=== PATIENT | female | born 1970 | race Caucasian/White ===

== ENCOUNTER 2022-10-25 15:12 | Outpatient (CLI) | payer OTHER, SELFPAY ==
[2022-10-25 17:31] LABS: Albumin* 4.1 g/dL (3.3-5.0); Chloride* 97 mmol/L (96-114); Potassium* 4.6 mmol/L (3.6-5.1); Sodium* 132 mmol/L (135-149)
[2022-10-25 17:33] LABS: Bilirubin Total* 0.6 mg/dL (0.1-1.5); Carbon Dioxide* 27 mmol/L (20-32); Cholesterol* 259 mg/dL (90-199); Creatinine* 0.4 mg/dL (0.5-1.5); Estimated Glomerular Filt Rate 121 ml/min; Total Protein* 7.4 g/dL (6.0-8.3)
[2022-10-25 17:34] LABS: Alanine Aminotransferase* 22 U/L (4-35); Alkaline Phosphatase* 120 U/L (40-150); Aspartate Amino Transferase* 20 U/L (12-35); Blood Urea Nitrogen* 12 mg/dL (5-24); Calcium* 9.5 mg/dL (8.4-10.6); HDL Cholesterol* 39 mg/dL (>=50); LDL Cholesterol Calculated 151 mg/dL (<100); Triglycerides* 346 mg/dL (40-149)
[2022-10-25 17:37] LABS: Glucose* 434 mg/dL (60-115)
[2022-10-25 20:14] LABS: Microalbumin Creatinine Ratio 50 mg/g (0-30); Microalbumin Urine 1 mg/dL
== END 2022-10-25 15:13 | disposition home or self-care (01) ==
LOC: NFLDREF 15:14
PROVIDERS: PCP Internal Medicine; Visit Provider Internal Medicine
DX: E11.9 Type 2 diabetes mellitus without complications (principal); E78.5 Hyperlipidemia, unspecified
CPT/HCPCS: 80053; 80061; 82043; 82570

== ENCOUNTER 2023-05-10 18:54 | Emergency (ER) | payer OTHER, SELFPAY ==
[2023-05-10 19:04] VITALS: BP 175/116; PULSE 91; RESP 16; TEMP 36.3; O2SAT 98; BMI 27.5
--- NOTE | 2023-05-10 19:20 | ED.GENADULT ---
HPI - General Adult General Chief complaint: Urogenital Problems, Female Stated complaint: Suspected bladder infection Time Seen by Provider: 05/10/23 19:12 History of Present Illness HPI narrative: Pt aox4, ABCs intact. Pt c/o buring and frequency with urination. Patient took Azo and ibuprofen around 1600 today, But it did not provide her with any relief. 52-year-old woman presenting to the emergency department with concern of 2 days now of frequency and dysuria. Some mild abdominal discomfort. Not any fever. No hematuria noted. Has been taking some azo in discomfort is lessened at the moment. No back pain. No nausea. She acknowledges that her sugars have been little bit high lately; notes that she needs to get back into the doctor to get a refill of her medication which she notes is metformin. She is uncertain on dosing though review of records would seem to show that last dosing was 1000 mg b.i.d.. Related Data Previous Rx's Medication Instructions Recorded metformin 1,000 mg tablet 1,000 mg PO BIDWMEAL #180 tabs 10/25/22 lorazepam 0.5 mg tablet 0.5 mg PO QDAY PRN anxiety #4 tabs 12/27/22 metformin 1,000 mg tablet 1,000 mg PO BID #60 tabs 05/10/23 Allergies Allergy/AdvReac Type Severity Reaction Status Date / Time Sulfa Antibiotics Allergy Severe Rash Uncoded 10/21/22 08:03 Review of Systems Status of ROS: Reports: 6 or more systems reviewed and unremarkable except as noted in History and below [facility] Medical History History of cellulitis ?Z87.2 - Personal history of diseases of the skin and subcutaneous tissue (ICD-10) Surgical History History of bilateral mastectomy ?Z90.13 - Acquired absence of bilateral breasts and nipples (ICD-10) History of bilateral oophorectomy (07/26/13) ?Z90.722 - Acquired absence of ovaries, bilateral (ICD-10) Social History Smoking Status: Never smoker Exam Narrative: Exam Narrative: Pleasant. Carefully casually groomed with careful placement of makeup. Skin is warm and dry rather tanned. Breathing easily. Lungs appear to be clear. Heart in a mildly elevated rate in a regular rhythm. Abdomen is soft and mildly uncomfortable to palpation in the suprapubic area. No flank pain. Const: Vital Signs, click to edit/add: Vital Signs - 24 hr 05/10/23 19:04 Temperature 97.4 F L Pulse Rate [Pulse Oximeter] 91 Respiratory Rate 16 Blood Pressure [Le ft Upper Arm] 175/116 H Pulse Oximetry 98 Oxygen Delivery Me thod Room Air Documenting provider has reviewed patient's vital signs: yes Course Vital Signs Vital signs: Initial Vital Signs Temperature 97.4 F L 05/10/23 19:04 Temperature Source Temporal Artery Scan 05/10/23 19:04 Pulse Rate 91 05/10/23 19:04 Respiratory Rate 16 05/10/23 19:04 Blood Pressure 175/116 H 05/10/23 19:04 Blood Pressure Mean 135 H 05/10/23 19:04 Pulse Oximetry 98 05/10/23 19:04 Oxygen Delivery Method Room Air 05/10/23 19:04 Vital Signs Temperature 97.4 F L 05/10/23 19:04 Pulse Rate 91 05/10/23 19:04 Respiratory Rate 16 05/10/23 19:04 Blood Pressure 175/116 H 05/10/23 19:04 Pulse Oximetry 98 05/10/23 19:04 Oxygen Delivery Method Room Air 05/10/23 19:04 Temperature 97.4 F L 05/10/23 19:04 Pulse Rate 91 05/10/23 19:04 Respiratory Rate 16 05/10/23 19:04 Blood Pressure 175/116 H 05/10/23 19:04 Pulse Oximetry 98 05/10/23 19:04 Oxygen Delivery Method Room Air 05/10/23 19:04 Medical Decision Making MDM Narrative Medical decision making narrative: Will look for old urine cultures. Urinalysis pending. Absent other risk factors this urinalysis I think is enough of an evaluation at this point. I would anticipate also refilling metformin for 1 month and recommending follow-up soon with primary care provider. On review of records it looks like intention by primary was to see her about 4 months ago. Pansensitive E coli noted in December of 2021 in urine culture Urine today is grossly positive and includes nitrites otherwise affected somewhat I think by phenazopyridine as well. Lab Data Lab results reviewed: Yes I reviewed the patient's lab results Labs: Lab Results 05/10/23 05/10/23 05/10/23 Range/Units 19:20 19:20 19:20 Urine Color [place] A (Yellow) Urine Appearance Cloudy A (Clear) Urine pH 5.0 (5.0-8.5) Ur Specific [place] 1.015 (1.000-1.030) Urine Protein 3+ A (Negative) Urine Glucose (UA) 3+ A (Negative) Urine Ketones 3+ A (Negative) Urine Blood 1+ A (Negative) Urine Nitrite Positive A (Negative) Urine Bilirubin Negative (Negative) Urine Urobilinogen 2.0 A (0.2-1.0) Ur Leukocyte Esterase 3+ A (Negative) Urine RBC 2-5 A Cancelled (0-2) Urine WBC >100 A Cancelled (0-5) Urine WBC Clumps Cancelled Ur Squamous Epith Cells Few (None-Few) [place] Biurate Crystals Calcium Carbonate Cryst Calcium Phosphate Cryst Calcium Oxalate Crystal Cystine Crystals Uric Acid Crystals Triple Phos Crystals Sulfur Crystals Cholesterol Crystals Tyrosine Crystals Hippuric Acid Crystals Amorphous Sediment Other Sediment Urine Bacteria (None) Fatty Casts Hyaline Casts Fine Granular Casts Coarse Granular Casts Waxy Casts RBC Casts WBC Casts Other Casts Urine Starch Urine Mucus Urine Trichomonas Urine Yeast 05/10/23 05/10/23 Range/Units 19:20 19:20 Urine Color (Yellow) Urine Appearance (Clear) Urine pH (5.0-8.5) Ur Specific [place] (1.000-1.030) Urine Protein (Negative) Urine Glucose (UA) (Negative) Urine Ketones (Negative) Urine Blood (Negative) Urine Nitrite (Negative) Urine Bilirubin (Negative) Urine Urobilinogen (0.2-1.0) Ur Leukocyte Esterase (Negative) Urine RBC (0-2) Urine WBC (0-5) Urine WBC Clumps Ur Squamous Epith Cells Cancelled (None-Few) [place] Biurate Crystals Cancelled Calcium Carbonate Cryst Cancelled Calcium Phosphate Cryst Cancelled Calcium Oxalate Crystal Cancelled Cystine Crystals Cancelled Uric Acid Crystals Cancelled Triple Phos Crystals Cancelled Sulfur Crystals Cancelled Cholesterol Crystals Cancelled Tyrosine Crystals Cancelled Hippuric Acid Crystals Cancelled Amorphous Sediment Cancelled Other Sediment Cancelled Urine Bacteria Few A Cancelled (None) Fatty Casts Cancelled Hyaline Casts Cancelled Fine Granular Casts Cancelled Coarse Granular Casts Cancelled Waxy Casts Cancelled RBC Casts Cancelled WBC Casts Cancelled Other Casts Cancelled Urine Starch Cancelled Urine Mucus Cancelled Urine Trichomonas Cancelled Urine Yeast Cancelled Discharge Plan Discharge Clinical Impression: Cystitis Patient Disposition: Home, Self-Care Condition: Stable Additional Instructions: Focus on hydration with unsugared/unsweetened liquid, ideally water at the moment. Urine culture is pending here. Do finish your course of cephalexin though I think that 6 days will probably be enough. Sending metformin to your pharmacy. Please check in with Dr. Rivas to see when she would like to see you again; whether that is after 3 months of careful work on your blood sugars or just as soon as possible Cephalexin and phenazopyridine from [facility]. Prescriptions: New metformin 1,000 mg tablet 1,000 mg PO BID Qty: 60 2RF No Action metformin 1,000 mg tablet 1,000 mg PO BIDWMEAL Qty: 180 0RF lorazepam 0.5 mg tablet 0.5 mg PO QDAY PRN (Reason: anxiety) Qty: 4 0RF Follow Up/Referrals: Zeynep Rivas MD [Primary Care Provider] - Stand Alone Forms: [employer] Info Instructions
[2023-05-10 19:54] LABS: Bacteria Urine Few; Squamous Epithelial Cell Urine Few (None-Few); WBC Urine >100 (0-5)
[2023-05-10 19:56] LABS: Appearance Urine Cloudy (Clear); Color Urine Orange (Yellow)
[2023-05-10 19:57] LABS: Bilirubin Urine Negative (Negative); Blood Urine 1+ (Negative); Glucose Urine 3+ (Negative); Ketones Urine 3+ (Negative); Leukocyte Esterase Urine 3+ (Negative); Nitrite Urine Positive (Negative); Protein Urine 3+ (Negative); Specific Gravity Urine 1.015 (1.000-1.030)
== END 2023-05-10 20:41 | disposition home or self-care (01) ==
PROVIDERS: Emergency Provider Family Medicine; PCP Internal Medicine
DX: N30.90 Cystitis, unspecified without hematuria (principal)
CPT/HCPCS: 81001; 81003; 81015; 87086; 87186; 99283; 99284

== ENCOUNTER 2023-07-01 13:21 | Emergency (ER) | payer OTHER, SELFPAY ==
[2023-07-01 13:28] VITALS: BP 189/106; PULSE 91; RESP 18; TEMP 36.7; O2SAT 95
--- NOTE | 2023-07-01 13:28 | CRLHL7_ITS ---
For Patients: As a result of the Cures Act, medical imaging exams and procedure reports are released immediately into your electronic medical record. You may view this report before your referring provider. If you have questions, please contact your health care provider. Indication: Injury. Technique: Right knee, 2 views. Comparison: None. Findings: Bones: Alignment is normal. No fractures. No destructive bone lesions. Irregular osseous contour of the lateral femoral condyle at the articular surface, probably related to remote injuries or osteochondral lesions. Normal overall bone mineralization Joint spaces: Mild degenerative narrowing with osteophyte formation. Soft tissues: Trace right knee joint effusion. Impression: Trace right knee joint effusion without any acute findings. Dictated by Daphne Balderas MD @ 07/01/2023 2:48:38 PM (Electronically Signed)
--- NOTE | 2023-07-01 13:29 | ED_ITS ---
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 She is not really sure what happened to her knee. The knee was slightly swollen on the medial aspect. She will give able to bear a little weight but it was quite uncomfortable she presents to the ED for evaluation. No other injuries reported. No open wounds reported Related Data Previous Rx's Medication Instructions Recorded lorazepam 0.5 mg tablet 0.5 mg PO QDAY PRN anxiety #4 tabs 12/27/22 metformin 1,000 mg tablet 1,000 mg PO BID #60 tabs 05/10/23 metformin 1,000 mg tablet 1,000 mg PO BIDWMEAL #180 tabs 05/12/23 Allergies Allergy/AdvReac Type Severity Reaction Status Date / Time Sulfa Antibiotics Allergy Severe Rash Uncoded 10/21/22 08:03 Review of Systems Status of ROS: Reports: 6 or more systems reviewed and unremarkable except as noted in History and below [facility] Medical History History of cellulitis ?Z87.2 - Personal history of diseases of the skin and subcutaneous tissue (ICD-10) Surgical History History of bilateral mastectomy ?Z90.13 - Acquired absence of bilateral breasts and nipples (ICD-10) History of bilateral oophorectomy (07/26/13) ?Z90.722 - Acquired absence of ovaries, bilateral (ICD-10) Social History Smoking Status: Never smoker Do you use any of these nicotine containing products: None Second hand tobacco smoke exposure: No Exam Narrative: Exam Narrative: Objective: Patient's blood pressure is slightly elevated, she is in mild distress and the injury but alert orient x3 Right medial knee tenderness some mild abrasion over the anterior knee. She has got fairly full range of motion with some discomfort to flexion extension full, no marked effusion. Const: Vital Signs, click to edit/add: Vital Signs - 24 hr 07/01/23 13:28 Temperature 98.1 F Pulse Rate [Right Pulse Oximeter] 91 Respiratory Rate 18 Blood Pressure [Ri ght Upper Arm] 189/106 H Pulse Oximetry 95 Oxygen Delivery Me thod Room Air Course Vital Signs Vital signs: Initial Vital Signs Temperature 98.1 F 07/01/23 13:28 Temperature Source Temporal Artery Scan 07/01/23 13:28 Pulse Rate 91 07/01/23 13:28 Respiratory Rate 18 07/01/23 13:28 Blood Pressure 189/106 H 07/01/23 13:28 Blood Pressure Mean 133 H 07/01/23 13:28 Blood Pressure Position Sitting 07/01/23 13:28 Pulse Oximetry 95 07/01/23 13:28 Oxygen Delivery Method Room Air 07/01/23 13:28 Vital Signs Temperature 98.1 F 07/01/23 13:28 Pulse Rate 91 07/01/23 13:28 Respiratory Rate 18 07/01/23 13:28 Blood Pressure 189/106 H 07/01/23 13:28 Pulse Oximetry 95 07/01/23 13:28 Oxygen Delivery Method Room Air 07/01/23 13:28 Temperature 98.1 F 07/01/23 13:28 Pulse Rate 91 07/01/23 13:28 Respiratory Rate 18 07/01/23 13:28 Blood Pressure 189/106 H 07/01/23 13:28 Pulse Oximetry 95 07/01/23 13:28 Oxygen Delivery Method Room Air 07/01/23 13:28 Medical Decision Making [facility] Narrative Medical decision making narrative: [age] year white female with a right knee strain, will check an x-ray mentions no fracture, this is negative knee immobilizer, icing recommended, Advil over the next few days, follow-up with primary care in 3-4 days, limited weight- bearing. Patient comfortable this plan. Addendum 2:05 p.m. x-ray of the knee looks negative by my review, await Ra diology overreading. Knee immobilizer, crutches, nonweightbearing, Advil, recheck with primary care in 3-4 days. Discharge Plan Discharge Clinical Impression: Strain of right knee Patient Disposition: Home w/ Parent or Adult Condition: Stable Additional Instructions: Knee immobilizer, crutches, weight bear minimally, Advil 3 times a day over the next couple of days, icing regularly, follow up with primary care in 3 days for reassessment certainly sooner change concerns worsening return to ED. Activity Level: Light activity Discharge Diet: Regular Prescriptions: No Action metformin 1,000 mg tablet 1,000 mg PO BID Qty: 60 2RF lorazepam 0.5 mg tablet 0.5 mg PO QDAY PRN (Reason: anxiety) Qty: 4 0RF metformin 1,000 mg tablet 1,000 mg PO BIDWMEAL Qty: 180 0RF Follow Up/Referrals: Zeynep Rivas MD [Primary Care Provider] - Stand Alone Forms: [address] Info Instructions
== END 2023-07-01 14:15 | disposition home or self-care (01) ==
LOC: ED 14:03
PROVIDERS: Emergency Provider Family Medicine; PCP Internal Medicine
DX: S86.911A Strain of unspecified muscle(s) and tendon(s) at lower leg level, right leg, initial encounter (principal); W01.0XXA Fall on same level from slipping, tripping and stumbling without subsequent striking against object, initial encounter; Y99.0 Civilian activity done for income or pay
CPT/HCPCS: 29505; 73560; 99283; 99284

== ENCOUNTER 2023-12-08 15:44 | Outpatient (CLI) | payer OTHER, SELFPAY | END 2023-12-08 15:45 | disposition home or self-care (01) | LOC: NFLDREF 12-22 11:19 | PROVIDERS: PCP Internal Medicine; Referring Provider Internal Medicine; Visit Provider Internal Medicine | DX: E11.65 Type 2 diabetes mellitus with hyperglycemia (principal); E78.5 Hyperlipidemia, unspecified; F40.243 Fear of flying | CPT/HCPCS: 80053; 80061; 82043; 82570 ==

== ENCOUNTER 2023-12-15 12:28 | Outpatient (CLI) | payer OTHER, SELFPAY | END 2023-12-15 12:29 | disposition home or self-care (01) | LOC: NFLDREF 12-28 10:02 | PROVIDERS: PCP Internal Medicine; Referring Provider Internal Medicine; Visit Provider Nurse Practitioner Family | DX: N30.00 Acute cystitis without hematuria (principal) | CPT/HCPCS: 87086; 87186 ==

== ENCOUNTER 2023-12-19 16:50 | Emergency (ER) | payer OTHER, SELFPAY ==
[2023-12-19 16:50] VITALS: BP 163/100; PULSE 104; RESP 14; TEMP 37; O2SAT 98; BMI 24.0
--- NOTE | 2023-12-19 17:10 | CT_ITS ---
Patient: JONNIE SNIDER Facility:?[facility] Patient ID:?[id number] Site Patient ID:?[id number]. Site :?[id number] Study:?CT-Abdomen/Pelvis w/ 69cc [id number] 5:59:56 PM Ordering Physician:Carolin George Final Report: INDICATION: Cystitis, suprapubic abdominal pain for 1 week COMPARISON: None. TECHNIQUE: CT of the abdomen and pelvis with intravenous contrast. Multiplanar reformats are included. Contrast: 69 mL Isovue 370 FINDINGS: Lung bases: Minimal scarring in the right middle lobe. Liver: Normal. No mass. Gallbladder and bile ducts: Normal gallbladder. No bile duct dilation. Pancreas: Normal. Spleen: Normal. Adrenal glands: Normal. Kidneys: Both kidneys are large and measure about 13 centimeters in length. No duplication. Normal parenchymal enhancement with normal corticomedullary differentiation. No cyst or solid mass. Punctate nonobstructing calculus in the right mid kidney. No urinary tract dilation. Urinary bladder: Diffusely thick bladder wall with significant submucosal edema and mucosal hyperenhancement. There is adjacent inflammatory stranding. Vessels: Few scattered atherosclerotic plaques. No aneurysm. Pelvis: Pelvic floor relaxation. Bowel: Large ingested contents in the stomach. Large stool burden. Normal appendix. No dilated or inflamed bowel. Lymph nodes: No adenopathy. Peritoneum: No ascites. Bones: No fractures. No focal worrisome bone lesions. Abdominal wall: Fat containing umbilical hernia. IMPRESSION: Cystitis. No pyelonephritis or urinary tract dilatation. Please note that all CT scans at this facility use dose modulation, iterative reconstruction, and/or weight-based dosing when appropriate to reduce radiation dose to as low as reasonably achievable. Dictated by Daphne Balderas MD @ 12/19/2023 6:13:46 PM Signed by:?Daphne Balderas MD @12/19/2023 6:13:46 PM (Electronic Signature)
[2023-12-19 17:50] LABS: Bilirubin Urine Negative (Negative); Blood Urine 2+ (Negative); Color Urine Yellow (Yellow); Glucose Urine 3+ (Negative); Ketones Urine Trace (Negative); Leukocyte Esterase Urine Negative (Negative); Nitrite Urine Positive (Negative); Protein Urine 2+ (Negative); Specific Gravity Urine 1.015 (1.000-1.030); pH Urine 5.5 (5.0-8.5)
--- NOTE | 2023-12-19 17:54 | ED_ITS ---
HPI - General Adult General Chief complaint: Urogenital Problems, Female Stated complaint: Pain from bladder inf Time Seen by Provider: 12/19/23 16:52 Source: patient Mode of arrival: ambulatory Limitations: no limitations History of Present Illness HPI narrative: Patient is a 53-year-old female presenting to the emergency department for suprapubic pain and dysuria. She has a history of type 2 diabetes and breast cancer. Breast cancer has been treated and she is currently cancer free. States for the past 5 days she has been having UTI symptoms. Went to urgent care 4 days ago was started on Keflex. Continue to have worsening pain with urination and and is developing suprapubic pain. She was started on Macrobid yesterday his symptoms are not improving so she came to the emergency department for evaluation. Has been taking Motrin, Tylenol, azo for her symptoms without improvements. Has noticed a small amount of hematuria. The in and previously has been treated with Keflex for UTIs with resolved went of her symptoms. Has had some mild nausea but no vomiting. Denies chest pain, shortness of breath, diarrhea, constipation, lightheadedness, dizziness, vaginal discharge. Has not noticed any fevers or chills. Is not concerned for STDs at this time. Related Data Previous Rx's Medication Instructions Recorded glipizide 5 mg tablet 5 mg PO BID #180 tabs 12/08/23 metformin 1,000 mg tablet 1,000 mg PO BIDWMEAL #180 tabs 12/08/23 lidocaine HCl 2 % mucosal jelly in 1 applic intra-urethral 4-6XD PRN 12/18/23 applicator pain #125 mL nitrofurantoin 100 mg PO Q12H 7 days #14 caps 12/18/23 monohydrate/macrocrystals 100 mg capsule ciprofloxacin HCl 500 mg tablet 500 mg PO Q12H #20 tabs 12/19/23 (Cipro) Allergies Allergy/AdvReac Type Severity Reaction Status Date / Time Sulfa Antibiotics Allergy Severe Rash Uncoded 12/15/23 12:37 Review of Systems Status of ROS: Reports: 10 or more systems reviewed and unremarkable except as noted in History and below [facility] Medical History History of cellulitis ?Z87.2 - Personal history of diseases of the skin and subcutaneous tissue (ICD-10) Surgical History History of bilateral mastectomy ?Z90.13 - Acquired absence of bilateral breasts and nipples (ICD-10) History of bilateral oophorectomy (07/26/13) ?Z90.722 - Acquired absence of ovaries, bilateral (ICD-10) Social History What is your current living situation?: I presently have a place to live Problems where you live: no known problems In the past 12 months, utilities in danger of being shut off: declined to answer In past 12 months, lack of transportation kept you from medical appts, meetings, work, or getting things needed for daily living: no In the past 12 mos, have been you worried that your food would run out before you had money to buy more?: never true In the past 12 mos, the food you bought just didn't last and you didn't have money to buy more?: declined to answer Smoking Status: Never smoker Do you use any of these nicotine containing products: None Second hand tobacco smoke exposure: No Non-prescribed substance use: denies use How often does anyone, including family, friends and others, physically hurt you : never How often does anyone, including family, friends and others, insult or talk down to you: rarely How often does anyone, including family, friends and others, threaten you with harm: never How often does anyone, including family, friends and others, scream or curse at you: never Little interest or pleasure in doing things: not at all Feeling down, depressed, or hopeless: not at all Exam Narrative: Exam Narrative: Const: Well-nourished, Well-developed, in mild distress Eyes: PERRL, no conjunctival injection, and symmetrical lids HENT: Atraumatic external nose and ears. Moist mucous membranes. Neck: Symmetric, trachea midline, No thyromegaly. CVS: RRR, No murmurs or gallops. Peripheral pulses 2+ and equal in all extremities RESP: Unlabored respiratory effort. Clear to auscultation bilaterally. GI: Mild suprapubic tenderness, Nondistended, No rebound or guarding. MSK:Extremities w/o deformity, Normal Active ROM Skin: Warm, Dry. No rashes or lesions. Neuro: Normal Muscle tone, No focal neurological deficits. Psych: Awake, Alert, & Oriented x3. Appropriate mood and affect. Const: Vital Signs, click to edit/add: Vital Signs - 24 hr 12/19/23 16:50 Temperature 98.6 F Pulse Rate [Pulse Oximeter] 104 H Respiratory Rate 14 Blood Pressure [Le ft Upper Arm] 163/100 H Pulse Oximetry 98 Oxygen Delivery Me thod Room Air Course Vital Signs Vital signs: Initial Vital Signs Temperature 98.6 F 12/19/23 16:50 Temperature Source Temporal Artery Scan 12/19/23 16:50 Pulse Rate 104 H 12/19/23 16:50 Pulse Rhythm Regular 12/19/23 16:50 Respiratory Rate 14 12/19/23 16:50 Blood Pressure 163/100 H 12/19/23 16:50 Blood Pressure Mean 121 H 12/19/23 16:50 Blood Pressure Position Sitting 12/19/23 16:50 Pulse Oximetry 98 12/19/23 16:50 Oxygen Delivery Method Room Air 12/19/23 16:50 Vital Signs Temperature 98.6 F 12/19/23 16:50 Pulse Rate 104 H 12/19/23 16:50 Respiratory Rate 14 12/19/23 16:50 Blood Pressure 163/100 H 12/19/23 16:50 Pulse Oximetry 98 12/19/23 16:50 Oxygen Delivery Method Room Air 12/19/23 16:50 Temperature 98.6 F 12/19/23 16:50 Pulse Rate 104 H 12/19/23 16:50 Respiratory Rate 14 12/19/23 16:50 Blood Pressure 163/100 H 12/19/23 16:50 Pulse Oximetry 98 12/19/23 16:50 Oxygen Delivery Method Room Air 12/19/23 16:50 Medical Decision Making MDM Narrative Medical decision making narrative: Patient is a 53-year-old female presenting to the emergency department for suprapubic pain and dysuria. She has already been on 2 different antibiotics without any improvement. Due consistent symptoms we will do a CT scan to make sure there is no other cause of her symptoms such as pyelonephritis, nephrolithiasis, diverticulitis or any other intra-abdominal issues. Especially asked the patient about concern for STDs and she has not at this time and do not believe STD testing is necessary. We will recheck a urinalysis to see if there has been any improvement in will do a CBC and CMP. CBC and CMP returned showing no concerning abnormalities other than a glucose of 390. She is not symptomatic from this blood sugar at this time and does not require to be treated in the emergency department. I offered to give her insulin and fluids in the emergency department though and she declined states she will talk to her primary care provider. States her blood sugar has been elevated like this for a year now. She is mildly tachycardic but otherwise appears well and does not meet SIRS criteria. CT scan returned showing cystitis but no other concerning abnormalities. Urinalysis returned she does showing a clear UTI. Considering the persistent symptoms with the uncontrolled diabetes I will treat this as a complicated cystitis and start her on ciprofloxacin. I do not believe treating the blood sugar for 1 day will fix it and she needs to speak to her primary care provider to better control it. I informed her to follow up with her primary care provider about her blood sugars she states she understands. Lab Data Labs: Lab Results 12/19/23 12/19/23 Range/Units 17:30 17:55 WBC 9.36 (4.50-11.00) K/uL RBC 4.90 (4.00-5.20) m/uL Hgb 13.7 (12.0-16.0) gm/dL Hct 41.1 (33.0-51.0) % MCV 84 (80-100) fL MCH 28 (26-34) pg MCHC 33 (32-36) gm/dL RDW Coeff of Preet 12.6 (11.5-15.5) % Plt Count 329 (140-440) K/uL Neut % (Auto) 64.9 (42.0-72.0) % Lymph % (Auto) 21.8 (20-44) % Ro[place] % (Auto) 8.4 (0.0-11.0) % Eos % (Auto) 2.6 (0.0-7.0) % Baso % (Auto) 0.3 (0.0-3.0) % Neut # (Auto) 6.07 (1.7-7.0) K/uL Lymph # (Auto) 2.04 (0.90-2.90) K/uL Roane # (Auto) 0.80 (0.00-0.90) K/UL Eos # (Auto) 0.24 (0.00-0.50) K/uL Baso # (Auto) 0.03 (0.00-0.30) K/uL Abs Immat Gran (auto) 0.19 (0.00-0.30) K/uL Imm/Tot Granulo (auto) 2.0 % Sodium 135 (135-149) mmol/L Potassium 4.2 (3.6-5.1) mmol/L Chloride 99 (96-114) mmol/L Carbon Dioxide 28 (20-32) mmol/L Anion Gap 8 (7-15) mEq/L BUN 16 (7-30) mg/dL Creatinine 0.4 L (0.5-1.5) mg/dL Estimated Creat Clear 143.68 Estimated GFR 120 ml/min Glucose 390 H* (60-115) mg/dL Calcium 9.6 (8.4-10.6) mg/dL Total Bilirubin 0.9 (0.1-1.5) mg/dL AST 17 (12-35) U/L ALT 17 (4-35) U/L Alkaline Phosphatase 113 (40-150) U/L Total Protein 7.9 (6.0-8.3) g/dL Albumin 4.4 (3.3-5.0) g/dL Urine Color Yellow (Yellow) Urine Appearance Slightly Cloudy A (Clear) Urine pH 5.5 (5.0-8.5) Ur Specific [place] 1.015 (1.000-1.030) Urine Protein 2+ A (Negative) Urine Glucose (UA) 3+ A (Negative) Urine Ketones Trace A (Negative) Urine Blood 2+ A (Negative) Urine Nitrite Positive A (Negative) Urine Bilirubin Negative (Negative) Urine Urobilinogen 1.0 (0.2-1.0) Ur Leukocyte Esterase Negative (Negative) Urine RBC 10-25 A (0-2) Urine WBC 2-5 (0-5) Ur Squamous Epith Cells Few (None-Few) Urine Bacteria Few A (None) Lab Acknowledgement Test Added Imaging Data CT scan abdomen and pelvis: Radiologist's impression: Cystitis. No pyelonephritis or urinary tract dilatation. Please note that all CT scans at this facility use dose modulation, iterative reconstruction, and/or weight-based dosing when appropriate to reduce radiation dose to as low as reasonably achievable. Dictated by Daphne Balderas MD @ 12/19/2023 6:13:46 PM Discharge Plan Discharge Clinical Impression: Urinary tract infection Qualifiers: Urinary tract infection type: acute cystitis Hematuria presence: with hematuria Qualified Code(s): N30.01 - Acute cystitis with hematuria Patient Disposition: Home, Self-Care Condition: Stable Instructions: Urinary Tract Infection in Women (DC) Additional Instructions: Due to persistent urinary tract infection her place her on a stronger antibiotic. Stop taking the Keflex and Macrobid. Follow-up with the primary care provider about your uncontrolled diabetes as soon as possible side believe this is making it hard to treat your UTI at this time and needs to be under better control over the long run. Return to emergency department for new or worsening symptoms Prescriptions: New ciprofloxacin HCl [Cipro] 500 mg tablet 500 mg PO Q12H Qty: 20 0RF No Action metformin 1,000 mg tablet 1,000 mg PO BIDWMEAL Qty: 180 3RF glipizide 5 mg tablet 5 mg PO BID Qty: 180 3RF Hold Instructions: Bad side effects: fast hearbeat and does not feel well nitrofurantoin monohyd/m-cryst 100 mg capsule 100 mg PO Q12H 7 Days Qty: 14 0RF Rx Instructions: must administer with a meal/food lidocaine HCl 2 % jelly in applicator 1 applic intra-urethral 4-6XD PRN (Reason: pain) Qty: 125 0RF Follow Up/Referrals: Zeynep Rivas MD [Primary Care Provider] - Stand Alone Forms: [facility] Info Instructions
[2023-12-19 17:56] LABS: Albumin* 4.4 g/dL (3.3-5.0); Chloride* 99 mmol/L (96-114); Potassium* 4.2 mmol/L (3.6-5.1); Sodium* 135 mmol/L (135-149)
[2023-12-19 17:58] LABS: Creatinine* 0.4 mg/dL (0.5-1.5); Est. Creatinine Clearance* 143.68; Estimated Glomerular Filt Rate 120 ml/min
[2023-12-19 17:59] LABS: Alanine Aminotransferase* 17 U/L (4-35); Alkaline Phosphatase* 113 U/L (40-150); Anion Gap 8 mEq/L (7-15); Aspartate Amino Transferase* 17 U/L (12-35); Bilirubin Total* 0.9 mg/dL (0.1-1.5); Blood Urea Nitrogen* 16 mg/dL (7-30); Carbon Dioxide* 28 mmol/L (20-32); Total Protein* 7.9 g/dL (6.0-8.3)
[2023-12-19 18:00] LABS: Calcium* 9.6 mg/dL (8.4-10.6)
[2023-12-19 18:06] LABS: Basophils Absolute Auto 0.03 K/uL (0.00-0.30); Basophils Percent Auto 0.3 % (0.0-3.0); Eosinophils Absolute Auto 0.24 K/uL (0.00-0.50); Eosinophils Percent Auto 2.6 % (0.0-7.0); Hematocrit 41.1 % (33.0-51.0); Hemoglobin* 13.7 gm/dL (12.0-16.0); Immature Granulocytes Abs Auto 0.19 K/uL (0.00-0.30); Lymphocytes Absolute Auto 2.04 K/uL (0.90-2.90); Lymphocytes Percent Auto 21.8 % (20-44); Mean Corpuscular HGB Conc 33 gm/dL (32-36); Mean Corpuscular Hemoglobin 28 pg (26-34); Mean Corpuscular Volume 84 fL (80-100); Monocytes Percent Auto 8.4 % (0.0-11.0); Neutrophils Absolute Auto 6.07 K/uL (1.7-7.0); Neutrophils Percent Auto 64.9 % (42.0-72.0); Platelet Count* 329 K/uL (140-440); RDW Coefficient of Variation % 12.6 % (11.5-15.5); White Blood Count* 9.36 K/uL (4.50-11.00)
[2023-12-19 18:11] LABS: Appearance Urine Slightly Cloudy (Clear); Bacteria Urine Few; Squamous Epithelial Cell Urine Few (None-Few)
[2023-12-19 18:13] LABS: Slide Review Reflex No
[2023-12-19 18:18] LABS: Glucose* 390 mg/dL (60-115)
== END 2023-12-19 18:56 | disposition home or self-care (01) ==
PROVIDERS: Emergency Provider Student in an Organized Health Care Education/Training Program; PCP Internal Medicine
DX: N30.01 Acute cystitis with hematuria (principal)
CPT/HCPCS: 36415; 74177; 80048; 80053; 81001; 85025; 87086; 99283; 99284; Q9967

== ENCOUNTER 2023-12-20 02:34 | Emergency (ER) | payer OTHER, SELFPAY ==
[2023-12-20 02:44] VITALS: BP 147/91; PULSE 90; RESP 18; TEMP 36.6; O2SAT 97; BMI 24.0
[2023-12-20] MEDS: PHENAZOPYRIDINE HCL 200 MG TABLET PO (02:49)
[2023-12-20] MEDS: OXYCODONE 5 MG TABLET PO (03:02)
[2023-12-20] MEDS: hydrOXYzine pamoate 25 MG CAPSULE PO (03:02)
--- NOTE | 2023-12-20 03:02 | ED_ITS ---
HPI - General Adult General Chief complaint: Flank Pain Stated complaint: left flank pain Time Seen by Provider: 12/20/23 02:46 Source: patient and family Mode of arrival: ambulatory History of Present Illness HPI narrative: 53-year-old female presents the emergency department for evaluation of bladder and back pain. Was evaluated earlier this evening in the emergency department. Had recently started Macrobid for bladder infection, and not yet getting relief. Thorough workup performed earlier today with CT, labs reviewed. These did not show any stone or any other signs of complications cystitis noted. She started her ciprofloxacin as prescribed and tolerated this well. Continues to take fluids with no complication. She continues to have urinary frequency is still passing urine. She has tried taking an [id number] urinary pain relief tablet with no significant improvement. Try taking a couple of Aleve earlier in the night with inadequate relief, has not tried Tylenol. No history of bladder rupture or bladder surgeries. No ebony hematuria. No fever. She is frustrated by the pain, cannot sleep and had a lot of urgency and frequency. Denies any other changes since her visit earlier today. Past medical history notable for type 2 diabetes and prior breast cancer. Her diabetes is suboptimally controlled which was also mention to her at her previous ED visit. No other pertinent changes. ROS is notable for the suprapubic discomfort, urinary urgency and frequency but also some now radiation to the low back, no flank pain. No vomiting, no true fevers. Otherwise denied times 12. Related Data Previous Rx's Medication Instructions Recorded glipizide 5 mg tablet 5 mg PO BID #180 tabs 12/08/23 metformin 1,000 mg tablet 1,000 mg PO BIDWMEAL #180 tabs 12/08/23 lidocaine HCl 2 % mucosal jelly in 1 applic intra-urethral 4-6XD PRN 12/18/23 applicator pain #125 mL nitrofurantoin 100 mg PO Q12H 7 days #14 caps 12/18/23 monohydrate/macrocrystals 100 mg capsule ciprofloxacin HCl 500 mg tablet 500 mg PO Q12H #20 tabs 12/19/23 (Cipro) Allergies Allergy/AdvReac Type Severity Reaction Status Date / Time Sulfa Antibiotics Allergy Severe Rash Uncoded 12/15/23 12:37 PFSH PFSH Medical History History of cellulitis ?Z87.2 - Personal history of diseases of the skin and subcutaneous tissue (ICD-10) Surgical History History of bilateral mastectomy ?Z90.13 - Acquired absence of bilateral breasts and nipples (ICD-10) History of bilateral oophorectomy (07/26/13) ?Z90.722 - Acquired absence of ovaries, bilateral (ICD-10) Social History What is your current living situation?: I presently have a place to live Problems where you live: no known problems In the past 12 months, utilities in danger of being shut off: declined to answer In past 12 months, lack of transportation kept you from medical appts, meetings, work, or getting things needed for daily living: no In the past 12 mos, have been you worried that your food would run out before you had money to buy more?: never true In the past 12 mos, the food you bought just didn't last and you didn't have money to buy more?: declined to answer Smoking Status: Never smoker Do you use any of these nicotine containing products: None Second hand tobacco smoke exposure: No Non-prescribed substance use: denies use How often does anyone, including family, friends and others, physically hurt you : never How often does anyone, including family, friends and others, insult or talk down to you: rarely How often does anyone, including family, friends and others, threaten you with harm: never How often does anyone, including family, friends and others, scream or curse at you: never Little interest or pleasure in doing things: not at all Feeling down, depressed, or hopeless: not at all Exam Const: Vital Signs, click to edit/add: Vital Signs - 24 hr 12/20/23 02:44 Temperature 97.9 F Pulse Rate [Pulse Oximeter] 90 Respiratory Rate 18 Blood Pressure [Ri ght Upper Arm] 147/91 H Pulse Oximetry 97 Oxygen Delivery Me thod Room Air Documenting provider has reviewed patient's vital signs: yes Common normals: no apparent distress and alert General appearance: well kempt Other: A little restless but normal mentation. Good insight reasoning and judgment. HENMT: Common normals: normocephalic Head and scalp: normocephalic Eye: General eye: normal appearance of both eyes Resp: Common normals: normal respiratory effort and clear to auscultation bilaterally Effort & inspection: able to speak in complete sentences Auscultation: clear to auscultation bilaterally Cardio: Common normals: regular rate, regular rhythm, S1 normal heart sound, S2 normal heart sound and no murmurs Rate: regular rate Rhythm: regular rhythm Heart sounds: S1 normal and S2 normal GI: Other: Mild suprapubic tenderness but no obvious mass. : Common normals: no CVA tenderness Bladder/kidney exam: no CVA tenderness Back & Pelvis: Common normals: no CVA tenderness Thoracic spine/upper back: normal to inspection Other: Mild tenderness to palpation of lower midline lumbar area, no point tenderness. Neuro: Sensorium/orientation: alert Speech: speech normal Gait (neuro): normal gait Psych: Appearance: well kempt Attitude: engaged Other: A little restless, but not unexpected. Skin: Common normals: no rashes or lesions noted General skin exam: no rashes or lesions noted Course Course ED Course: Bladder pain with very recent thorough workup including CT, labs. No fever, hypotension, tachycardia or symptoms of significant infection or complication. We discussed strategies for symptom control. She will be given 200 mg of oral Pyridium, 30 of IM Toradol, 5 of oral oxycodone and 25 of Vistaril. Will plan for 4 tablets of hydrocodone to have at home, continuation of NSAIDs and continuing on the ciprofloxacin that she was already prescribed. She is tolerating this well. She should start to notice improvement in 24 hours, alarm symptoms reviewed that would warrant ED presentation. Reevaluation(s) Time of Reevaluation #1: 03:46 Reevaluation #1: Patient reports that she is getting relief with the medications given. Will discharge home with above plan. Vital Signs Vital signs: Initial Vital Signs Temperature 97.9 F 12/20/23 02:44 Temperature Source Temporal Artery Scan 12/20/23 02:44 Pulse Rate 90 12/20/23 02:44 Respiratory Rate 18 12/20/23 02:44 Blood Pressure 147/91 H 12/20/23 02:44 Blood Pressure Mean 109 H 12/20/23 02:44 Blood Pressure Position Sitting 12/20/23 02:44 Pulse Oximetry 97 12/20/23 02:44 Oxygen Delivery Method Room Air 12/20/23 02:44 Vital Signs Temperature 97.9 F 12/20/23 02:44 Pulse Rate 90 12/20/23 02:44 Respiratory Rate 18 12/20/23 02:44 Blood Pressure 147/91 H 12/20/23 02:44 Pulse Oximetry 97 12/20/23 02:44 Oxygen Delivery Method Room Air 12/20/23 02:44 Temperature 97.9 F 12/20/23 02:44 Pulse Rate 90 12/20/23 02:44 Respiratory Rate 18 12/20/23 02:44 Blood Pressure 147/91 H 12/20/23 02:44 Pulse Oximetry 97 12/20/23 02:44 Oxygen Delivery Method Room Air 12/20/23 02:44 Medications Administered Medications: Discontinued Medications Generic Name Dose Route Start Last Admin Trade Name Freq PRN Reason Stop Dose Admin Hydroxyzine Pamoate 25 mg 12/20/23 02:58 12/20/23 03:02 Hydroxyzine Pamoate 25 Mg Capsule PO 12/20/23 02:59 25 mg ONCE ONE Administration Ketorolac Tromethamine 30 mg 12/20/23 02:55 12/20/23 03:03 Ketorolac 30 Mg/Ml Inj IM 12/20/23 02:56 30 mg ONCE ONE Administration Oxycodone HCl 5 mg 12/20/23 02:55 12/20/23 03:02 Oxycodone 5 Mg Tablet PO 12/20/23 02:56 5 mg ONCE ONE Administration Phenazopyridine HCl 200 mg 12/20/23 02:47 12/20/23 02:49 Phenazopyridine Hcl 200 Mg Tablet PO 12/20/23 02:48 200 mg ONCE ONE Administration Discharge Plan Discharge Clinical Impression: Bladder pain Patient Disposition: Home w/ Parent or Adult Condition: Stable Instructions: Urinary Tract Infection in Women (DC) Additional Instructions: I have reviewed the previous note in the emergency department and agree with the previous workup. I think that the ciprofloxacin is an excellent choice for your infection. Unfortunately it will take 24-48 hours before you start to have relief. I am glad you have already taken your 1st dose, we do need to give the antibiotic a little bit more time. I am not surprised that you are having some pain radiating into the back though I know this can be frustrating. I have given you a higher dose of pain medication here in the emergency department. You were given 5 mg of oxycodone, 30 mg of Toradol and 200 mg of Pyridium. This of course will make your urine quite dark. I have given you for additional tablets of hydrocodone from the vending machine in the lobby. You may take this if you continue to have severe pain up to every 4 hours. You may take your next dose of 600 mg of ibuprofen at 9:00 a.m. if needed. You may take 1000 mg of Tylenol every 6 hours as well. You really should start to have the start of relief of symptoms within about 24 hours. If you are not noticing any improvement at 48 hours, I would recommend a follow-up clinic appointment for re-evaluation. He may have a little bit of low-grade fevers for up to 24 hours but any very high fevers, severe weakness, persistent vomiting or other disturbing symptoms would warrant repeat emergency department evaluation. Continue on the ciprofloxacin exactly as prescribed. I agree with the previous recommendation that you really do need to follow-up with her primary care provider to further discuss her blood sugar control. He will continue getting severe bladder infections unless this is addressed. Bacteria love sugar. Activity Level: Activity as Tolerated Discharge Diet: Diabetic Prescriptions: No Action metformin 1,000 mg tablet 1,000 mg PO BIDWMEAL Qty: 180 3RF glipizide 5 mg tablet 5 mg PO BID Qty: 180 3RF Hold Instructions: Bad side effects: fast hearbeat and does not feel well ciprofloxacin HCl [Cipro] 500 mg tablet 500 mg PO Q12H Qty: 20 0RF nitrofurantoin monohyd/m-cryst 100 mg capsule 100 mg PO Q12H 7 Days Qty: 14 0RF Rx Instructions: must administer with a meal/food lidocaine HCl 2 % jelly in applicator 1 applic intra-urethral 4-6XD PRN (Reason: pain) Qty: 125 0RF Follow Up/Referrals: Zeynep Rivas MD [Primary Care Provider] - Stand Alone Forms: [facility] Info Instructions
[2023-12-20] MEDS: KETOROLAC 30 MG/ML inj IM (03:03)
== END 2023-12-20 03:58 | disposition home or self-care (01) ==
LOC: ED 03:18
PROVIDERS: Emergency Provider Family Medicine; PCP Internal Medicine
DX: R39.89 Other symptoms and signs involving the genitourinary system (principal)
CPT/HCPCS: 96372; 99283; 99284; A9270; J1885

== ENCOUNTER 2024-06-12 16:09 | Outpatient (CLI) | payer OTHER, SELFPAY ==
--- OUTSIDE RECORDS SUMMARY | 2024-06-14 08:49 | XMS_ITS | Encounter Summary ---
Author Organization [facility] Address [address], [place] [address] Care Team Providers Care Solderer Assembler Name Role Phone Unavailable Primary Care Provider Unavailabl e Reason for Visit * Reason Comments CONSULT DM2 Encounter Details Date Type Department Care Team (Late st Contact Info) Description 03/22/2024 Telephone [facility] [address] [facility] [place], [place] [id number] Nurse, [id number] [place] [address] CONSULT (DM2) Social History Tobacco Use Types Packs/Day Years Used Date Smoking Tobacco: Never Assessed Sex and Gender Information Value Date Recorded Sex Assigned at Not on file Gender Identity Not on file Sexual Orientation Not on file documented as of this encounter Nursing Notes * Rocky Christopher - 03/22/2024 4:58 PM CDT Unable to leave and there is no . Mailed letter DM2 faxed referral. documented in this encounter Plan of Treatment Not on file documented as of this encounter Visit Diagnoses Not on filedocumented in this encounter
--- OUTSIDE RECORDS SUMMARY | 2024-06-14 08:49 | XMS_ITS ---
Author Organization [facility] Address [address] [place] [address] Care Team Providers Care Metal Gauge Maker Name Role Phone Unavailable Unavailable Unavailable Surgery Details Not on file Complications Check Surgery Details section. Procedure Estimated Blood Loss Check Surgery Details section. Procedure Findings Check Surgery Details section. Procedure Specimens Taken Check Surgery Details section.
--- OUTSIDE RECORDS SUMMARY | 2024-06-14 08:49 | XMS_ITS | Clinical Summary ---
Author Organization [facility] Address [address] [place] [address] Care Team Providers Care Splunk Developer Name Role Phone Elsewhere, Pcp Primary Care Provider Unavailabl e Source Comments Patient records contain information from all sites at [facility]. For routine questions regarding patient records, call [phone] during business hours, M-F 8:00 AM - 5:00 PM Central Time. Record requests for emergency care only can be directed to [phone] at any time.[facility] Allergies Active Allergy Reactions Criticality Noted Date Comments Anastrozole Rash 07/24/2007 Sulfa (Sulfonamide Antibiotics) Rash High 10/10 Medications Medication Sig Dispensed Refills Start Date End Date Status metFORMIN (GLUCOPHAGE) 500 mg tablet Take 2 tablets by mouth 2 (two) times a day with meals. 01/30/2016 Active LORazepam (ATIVAN) 0.5 mg tablet Take 1 tablet by mouth daily as needed. 12/30/2022 Active ciprofloxacin (CIPRO) 500 mg tablet Take 500 mg by mouth 2 (two) times a day before breakfast and dinner. Active Immunizations Name Administration Dates Next Due Influenza, Seasonal, Injectable 08/12/2007 Social History Tobacco Use Types Packs/Day Years Used Date Smoking Tobacco: Never Nutrition Answer Date Recorded Nutrition: EVOO Fat Source Unknown 09/07 Nutrition: Servings of Fruits/Vegetables per Day Not on file 09/07/2021 Dental Answer Date Recorded Dental: Regular Dentist Unknown 09/07/20 21 Sex and Gender Information Value Date Recorded Sex Assigned at Not on file Gender Identity Not on file Sexual Orientation Not on file Last Filed Vital Signs Vital Sign Reading Time Taken Comments Blood Pressure 143/87 12/22/2023 8:15 PM CDT Pulse 89 12/22/2023 8:15 PM CDT Temperature 37 ??C (98.6 ??F) 12/22/2023 5:08 PM CDT Respiratory Rate 19 12/22/2023 6:56 PM CDT Oxygen Saturation 94% 12/22/2023 8:15 PM CDT Inhaled Oxygen Concentration - - Weight 62.8 kg (138 lb 7.2 oz) 12/22/2023 3:09 P M CDT Height 160 cm (5' 2.99) 01/31/2016 6:13 AM CDT Body Mass Index 24.53 01/31/2016 6:13 AM CDT Plan of Treatment Health Maintenance Due Date Last Done Comments CT Colonography 1972 Cologuard 1972 Colonoscopy 1972 Colorectal Cancer Screening 1972 FIT 1972 HIV Screening 1972 Hepatitis C Screening 1972 Lipid (Cholesterol) Screening 1972 Hepatitis B Vaccines (1 of 3 - 19+ 3-dose series) 1991 Mammogram 07/25/2008 07/25/2007 Zoster Vaccines (1 of 2) 2022 Depression Screening (Annual PHQ-2) 10/10/2023 DTaP,Tdap,and Td Vaccines (2 - Td or Tdap) 12/06/2023 12/06/2013 COVID-19 Vaccine (3 - 2022-24 season) 2024 11/25/2020, 11/04/2020 Influenza Vaccine (#1) 2024 3, 07/02/2021, 10/29/2019, Additional history exists Fasting Glucose for Diabetes Screening 12/21/2026 12/22/2023, 08/16/2023, 02/03/2016, Additional history exists Pneumococcal vaccine (0-64 years) Aged Out 10/25/2022, 07/26/2013 No longer eligibl e based on patient's age to complete this topic Medical Devices Implanted Type Area Newspaper Press Operator Apprentice Device Identifier Shelf Expiration Date Model / Serial / Lot [employer] Sally Contour Profile 550cc - Dey [id number] Implanted:Qty: 1 on 08/08/2007 Tissue Farm Marketer Other/Legacy - See Implant Description [employer] Description:Device Manufactu rer - [employer] Sebastián. Body Location - Other. Left. Device Status Text - [id number]. Explanted Type Area Newspaper Press Operator Apprentice Device Identifier Shelf Expiration Date Model / Serial / Lot [employer] Sally Contour Profile 550cc - Dey [id number] Explanted:Qty: 1 on 01/29/2016 Tissue Farm Marketer Other/Legacy - See Implant Description [employer] Description:Device Manufactu rer - [employer]awam Sebastián. Body Location - Other. Right. Device Status Text - [id number]. Procedures Procedure Name Priority Date/Time Associated Diagnosis Comments BASIC METABOLIC PANEL, S/P STAT 12/22/2023 3:36 PM CDT MR BREAST UNILATERAL Routine 07/25/2007 9:46 AM CDT from Last 3 Months or Most Recently Relevant to Health Maintenance Results * (ABNORMAL) Basic Metabolic Panel (12/22/2023 3:36 PM CDT) Potassium, P 4.8 3.6 - 5.2 mmol/L 12/22/2023 4:21 PM CDT STMA Sodium, P 136 135 - 145 mmol/L 12/22/2023 4:21 PM CDT STMA Chloride, P 100 98 - 107 mmol/L 12/22/2023 4:21 PM CDT STMA Bicarbonate, P 25 22 - 29 mmol/L 12/22/2023 4:21 PM CDT STMA Anion Gap, P 11 7 - 15 12/22/2023 4:21 PM CDT STMA BUN (Blood Urea Nitrogen), P 21 6 - 21 mg/dL 12/22/2023 4:21 PM CDT STMA Creatinine 0.56(L) 0.59 - 1.04 mg/dL 12/22/2023 4:21 PM CDT STMA Estimated GFR (eGFR) >90 >=60 mL/min/BSA 12/22/2023 4:21 PM CDT STMA Comment: Estimated GFR calculated using the 2020 CKD_EPI creatinine equation. Calcium, Total, P 9.8 8.6 - 10.0 mg/dL 12/22/2023 4:21 PM CDT STMA Glucose, P 309(H) 70 - 140 mg/dL 12/22/2023 4:21 PM CDT STMA Blood (Blood, Venous) 12/22/2023 3:36 PM CDT 12/22/2023 3:48 PM CDT Santiago Padilla M.D. LAB BLOOD ADD-ON [facility] [address] [place] [address], [facility] STMA [facility] [address] [place] [address] * MR Breast (07/25/2007 9:46 AM CDT) Anatomical Region Laterality Modality Breast Magnetic Resonan ce 07/25/2007 9:46 AM CDT Narrative 07/25/2007 12:32 PM CDT 25-Jul-2007 09:46:00 ??Exam: B MRI BREAST, BILATERAL Indications: mri both breast - ca breast^fam hx; ca breast female; ca ORIGINAL REPORT - 25-Jul-2007 12:32:00 MRI BREAST, BILATERAL. HISTORY/INDICATION: 36-year-old female with biopsy-proven carcinoma of the right breast and biopsy-proven fibroadenoma of the left breast, being evaluated for extent of disease. HORMONAL STATUS: LMP exact date not known, approximately 3 weeks ago COMPARISON: Mammogram July 10, 2007, from [facility] and ultrasound of July 24, 2007, from [facility] TECHNIQUE: ??Breast-enhanced protocol with and without IV gadolinium. RIGHT BREAST: Scattered fibroglandular densities within the right breast. A 2.0cm x 2.3cm x 2.8cm irregular enhancing mass in the 11-o'clock subareolar position contains metallic susceptibility artifact from biopsy marking clip and is consistent with the biopsy-proven carcinoma (series 100, image 94 and series 9, image 67). Three subcentimeter enhancing masses lie between the carcinoma and the nipple (series 100, images 92-94) and two enhancing masses lie along the posterior margin of the carcinoma (series 100, images 91-97) - all suspicious for satellite foci of disease. The largest satellite mass is posterolateral to the cancer (series 100, image 95) measuring 1.1cm x 1.4cm x 1.1cm. The greatest extent of disease is in the anterior posterior plane estimated at 6.3cm (series 100, image 92). Within the medial right breast 3-o'clock position middle depth, a 1.2cm x 1.4cm x 1.0cm enhancing mass is indeterminate (series 100, image 84) and image-guided needle biopsy is recommended for further evaluation as previously discussed by Dr. Martínez. No other suspicious enhancement within the right breast. No abnormal enhancement of the skin or chest wall. RIGHT AXILLA: Three suspicious lymph nodes are present in the inferior medial right axilla (series 9, images 37-46). A single additional lymph node with mildly thickened cortex is present in the far posterior right breast (series 9, image 68). Ultrasound-guided core biopsy/FNA is of consideration for additional evaluation of these lymph nodes. LEFT BREAST: Scattered fibroglandular densities within the left breast. A 1.0cm x 1.7cm x 1.3cm enhancing mass in the lateral left breast posterior depth 3- o'clock position (series 100, image 29 and series 9, image 72) is consistent with the biopsy-proven fibroadenoma. Metallic susceptibility artifact anterolateral to the mass (series 100, image 27 and series 9, image 71) is consistent with a biopsy-marking clip. Within the lateral left breast anterior depth 2-o'clock position, a 0.7cm x 1.4cm x 0.6cm enhancing mass is indeterminate (series 100, image 28 and series 9, image 61). This mass is not evident on mammogram and demonstrates the same benign progressive enhancement curve as the biopsy-proven fibroadenoma. This mass may represent an additional fibroadenoma. Second-look ultrasound can be performed for further evaluation. Lastly, a small 0.5cm focus of enhancement in the superior left breast 12- o'clock position middle depth (series 100, image 33 and series 9, image 63) has a benign progressive enhancement curve as well. No suspicious enhancement within the left breast skin or chest wall. LEFT AXILLA: No left axillary lymphadenopathy. CONCLUSIONS: ?? 1) Biopsy-proven carcinoma upper outer right breast measuring 2.8cm. Small satellite masses anterior and posterior to the cancer suspicious for additional neoplasia. Greatest overall extent of disease estimated at 6.3cm in the AP plane. 2) Small suspicious enhancing mass medial right breast as well as suspicious right axillary lymph nodes. Ultrasound-guided needle biopsy is recommended. 3) Biopsy-proven fibroadenoma lateral left breast. An additional smaller mass in the upper outer left breast has a benign progressive enhancement pattern like the known fibroadenoma and may represent a fibroadenoma also. Second-look ultrasound recommended. No left axillary lymphadenopathy. Report called to Dr. Elida Riggs at 10:50AM on 07/25/07. Assessment: Known biopsy-proven malignancy. Ativan ??1 mg sublingual administer per protocol. SR999 Ind: 010.100 ?? Dia.150, 010.152 ?? Electronically signed by: ?? aSnto Kaur M.D. 25-Jul-2007 12:32 Procedure Note Santo Kaur M.D. - 01/10/2018 25-Jul-2007 09:46:00 Exam: B MRI BREAST, BILATERAL Indications: mri both breast - ca breast^fam hx; ca breast female; ca ORIGINAL REPORT - 25-Jul-2007 12:32:00 MRI BREAST, BILATERAL. HISTORY/INDICATION: 36-year-old female with biopsy-proven carcinoma of theright breast and biopsy-proven fibroadenoma of the left breast, beingevaluated for extent of disease. HORMONAL STATUS: LMP exact date not known, approximately 3 weeks ago COMPARISON: Mammogram July 10, 2007, from [facility] andultrasound of July 24, 2007, from [facility] TECHNIQUE: Breast-enhanced protocol with and without IV gadolinium. RIGHT BREAST: Scattered fibroglandular densities within the right breast.A 2.0cm x 2.3cm x 2.8cm irregular enhancing mass in the 11-o'clocksubareolar position contains metallic susceptibility artifact from biopsymarking clip and is consistent with the biopsy-proven carcinoma ([id number], image 94 and series 9, image 67). Three subcentimeter enhancingmasses lie between the carcinoma and the nipple (series 100, images 92-94)and two enhancing masses lie along the posterior margin of the carcinoma(series 100, images 91-97) - all suspicious for satellite foci of disease.The largest satellite mass is posterolateral to the cancer (series 100,image 95) measuring 1.1cm x 1.4cm x 1.1cm. The greatest extent of diseaseis in the anterior posterior plane estimated at 6.3cm (series 100, image92). Within the medial right breast 3-o'clock position middle depth, a 1.2cm x1.4cm x 1.0cm enhancing mass is indeterminate (series 100, image 84) andimage-guided needle biopsy is recommended for further evaluation aspreviously discussed by Dr. Martínez. No other suspicious enhancement within the right breast. No abnormalenhancement of the skin or chest wall. RIGHT AXILLA: Three suspicious lymph nodes are present in the inferiormedial right axilla (series 9, images 37-46). A single additional lymphnode with mildly thickened cortex is present in the far posterior rightbreast (series 9, image 68). Ultrasound-guided core biopsy/FNA is ofconsideration for additional evaluation of these lymph nodes. LEFT BREAST: Scattered fibroglandular densities within the left breast. A1.0cm x 1.7cm x 1.3cm enhancing mass in the lateral left breast posteriordepth 3-o'clock position (series 100, image 29 and series 9, image 72) isconsistent with the biopsy-proven fibroadenoma. Metallic susceptibilityartifact anterolateral to the mass (series 100, image 27 and series 9,image 71) is consistent with a biopsy-marking clip. Within the lateral left breast anterior depth 2-o'clock position, a 0.7cmx 1.4cm x 0.6cm enhancing mass is indeterminate (series 100, image 28 andseries 9, image 61). This mass is not evident on mammogram anddemonstrates the same benign progressive enhancement curve as thebiopsy-proven fibroadenoma. This mass may represent an additionalfibroadenoma. Second-look ultrasound can be performed for furtherevaluation. Lastly, a small 0.5cm focus of enhancement in the superior left djbzeq76-v'clock position middle depth (series 100, image 33 and series 9, image63) has a benign progressive enhancement curve as well. No suspicious enhancement within the left breast skin or chest wall. LEFT AXILLA: No left axillary lymphadenopathy. CONCLUSIONS: 1) Biopsy-proven carcinoma upper outer right breast measuring 2.8cm. Smallsatellite masses anterior and posterior to the cancer suspicious foradditional neoplasia. Greatest overall extent of disease estimated at6.3cm in the AP plane. 2) Small suspicious enhancing mass medial right breast as well assuspicious right axillary lymph nodes. Ultrasound-guided needle biopsy isrecommended. 3) Biopsy-proven fibroadenoma lateral left breast. An additional smallermass in the upper outer left breast has a benign progressive enhancementpattern like the known fibroadenoma and may represent a fibroadenoma also.Second-look ultrasound recommended. No left axillary lymphadenopathy. Report called to Dr. Elida Riggs at 10:50AM on 07/25/07. Assessment: Known biopsy-proven malignancy. Ativan 1 mg sublingual administer per protocol. SR999 Ind: 010.100 Dia.150, 010.152 Electronically signed by: Santo Kaur M.D. 25-Jul-2007 12:32 Elida Riggs M.D. IMG MRI PROCEDURES from Last 3 Months or Most Recently Relevant to Health Maintenance Care Teams Splunk Developer Relationship Specialty Start Date End Date Elsewhere, Pcp PCP - General Internal Medicine 12/22/23
--- OUTSIDE RECORDS SUMMARY | 2024-06-14 08:49 | XMS_ITS | Clinical Summary ---
Author Organization [facility] Address [address] [place] [address] Care Team Providers Care Roller Picker Name Role Phone Unavailable Primary Care Provider Unavailabl e Source Comments You are receiving this document as you are listed as the primary care provider,follow-up provider, or the patient has been referred to you for consultation.This is in compliance with the Medicare andMedicaid EHR Incentive Program,which states Providers who transition their patient to another setting of careor provider of care or refers their patient to another provider of care shouldprovide summary care record for each transition of care or referral. [facility] Allergies No known active allergies Medications Medication Sig Dispensed Refills Start Date End Date Status metFORMIN (GLUCOPHAGE) 1000 MG tablet Take 1,000 mg by mouth two times a day. 01/12/2022 Active diclofenac (VOLTAREN) 75 MG enteric coated tabletIndications:Inj ury of left ankle, initial encounter Take 1 Tablet (75 mg) by mouth two times a day. 30 Tablet 1 07/10/2022 Active Encounters Date Type Department Care Team Description 03/22/2024 Telephone [facility] [address] [place] [address] Nurse, [id number] End CONSULT (DM2) from Last 3 Months Social History Tobacco Use Types Packs/Day Years Used Date Smoking Tobacco: Never Assessed Sex and Gender Information Value Date Recorded Sex Assigned at Not on file Gender Identity Not on file Sexual Orientation Not on file Last Filed Vital Signs Vital Sign Reading Time Taken Comments Blood Pressure - - Pulse - - Temperature 36.8 ??C (98.2 ??F) 07/10/2022 7:25 PM CD T Respiratory Rate - - Oxygen Saturation - - Inhaled Oxygen Concentration - - Weight 70.3 kg (155 lb) 07/10/2022 7:25 PM CDT Height 160 cm (5' 3) 07/10/2022 7:25 PM CDT Body Mass Index 27.46 07/10/2022 7:25 PM CDT Plan of Treatment Health Maintenance Due Date Last Done Comments Cervical Cancer Screening Due 1972 Colon Cancer Screening Plan Due 1972 Hep C Screening (Preventive Services) 1972 MTM Covered 1972 Mammogram 1972 HIV Screening (Preventive Services) 1988 Adult Preventive Visit 1990 HepB (1) 1991 Cholesterol 2017 Zoster/Shingles (1 of 2) 2022 COVID-19 Vaccine (3 - season) 2023 11/25/2020, 11/04/2020 DTaP/Tdap/Td (2 - Tdap) 12/06/2023 12/06/2013 Influenza (#1) 2024 07/02/2021, 10/11, 09/11/2018, Additional history exists Pneumococcal Aged Out 07/26/2013 No longer eligi ble based on patient's age to complete this topic HepA Aged Out No longer eligi ble based on patient's age to complete this topic Hib Aged Out No longer eligi ble based on patient's age to complete this topic IPV (Polio) Aged Out No longer eligi ble based on patient's age to complete this topic MCV4 Aged Out No longer eligi ble based on patient's age to complete this topic
--- OUTSIDE RECORDS SUMMARY | 2024-06-14 08:49 | XMS_ITS | Referral Summary ---
Author Organization [facility] Address [address] [place] [address] Care Team Providers Care Oil Well Services Superintendent Name Role Phone Elsewhere, Pcp Primary Care Provider Unavailabl e Source Comments Patient records contain information from all sites at [facility]. For routine questions regarding patient records, call [phone] during business hours, M-F 8:00 AM - 5:00 PM Central Time. Record requests for emergency care only can be directed to [phone] at any time.[facility] Allergies Active Allergy Reactions Criticality Noted Date [...] 01/31/2016 6:13 AM CDT Plan of Treatment Not on file Medical Devices Implanted Type Area Auto Tech Device Identifier Shelf Expiration Date Model / Serial / Lot [employer] Sally Contour Profile 550cc - Dey [id number] Implanted:Qty: 1 on 08/08/2007 Tissue Clerk Secretary Other/Legacy - See Implant Description [employer] Description:Device Manufactu rer - [employer]ián. Body Location - Other. Left. Device Status Text - [id number]. Explanted Type Area Auto Tech Device Identifier Shelf Expiration Date Model / Serial / Lot [employer] Sally Contour Profile 550cc - Dey [id number] Explanted:Qty: 1 on 01/29/2016 Tissue Clerk Secretary Other/Legacy - See Implant Description [employer] Description:Device Manufactu rer - [employer] Sebastián. Body Location - Other. Right. Device Status Text - [id number]. Procedures Procedure Name Priority Date/Time Associated Diagnosis Comments BASIC METABOLIC PANEL, S/P STAT 12/22/2023 3:36 PM CDT MR BREAST UNILATERAL Routine 07/25/2007 9:46 AM CDT from Last 3 Months or Most Recently Relevant to Health Maintenance Results * (ABNORMAL) Basic Metabolic Panel (12/22/2023 3:36 PM CDT) Pathologist [facility] Potassium, P 4.8 3.6 - 5.2 mmol/L [...] CDT Santiago Padilla M.D. LAB BLOOD ADD-ON [facility] [address] [place] [address], [facility] [address] [place] [address] * MR Breast (07/25/2007 9:46 AM CDT) [...] ago COMPARISON: Mammogram July 10, 2007, [facility] and ultrasound of July 24, 2007, from [facility] TECHNIQUE: ??Breast-enhanced protocol with and without IV [...] Dia.150, 010.152 ?? Electronically signed by: ?? Santo Kaur M.D. 25-Jul-2007 12:32 Procedure Note Santo [...] ago COMPARISON: Mammogram July 10, 2007, [address] [facility] andultrasound of July 24, 2007, from [facility] TECHNIQUE: Breast-enhanced protocol with and without IV gadolinium. RIGHT BREAST: Scattered fibroglandular densities within the right breast.A 2.0cm x 2.3cm x 2.8cm irregular enhancing mass in the 11-o'clocksubareolar position contains metallic susceptibility artifact from biopsymarking clip and is consistent with the biopsy-proven carcinoma ([id number], image 94 and series 9, image 67). [...] focus of enhancement in the superior left pxssui23-c'clock position middle depth (series 100, image 33 [...] Recently Relevant to Health Maintenance Care Teams Oil Well Services Superintendent Relationship Specialty Start Date End Date Elsewhere, Pcp PCP - General Internal Medicine 12/22/23
--- OUTSIDE RECORDS SUMMARY | 2024-06-14 08:49 | XMS_ITS | Clinical Summary ---
Author Organization [facility] [place] [address] Care Team Providers Care Rough And Truing Machine Operator Name Role Phone Pcp, No Primary Care Provider Unavailabl e Allergies No known active allergies Medications Medication Sig Dispensed Refills Start Date End Date Status acetaminophen (Tylenol Extra Strength) 500 mg tablet Take 1,000 mg by mouth every 6 hours if needed for Pain. Max acetaminophen dose: 4000mg in 24 hrs. Active ibuprofen (ADVIL; MOTRIN) 200 mg tablet Take 200 mg by mouth every 6 hours if needed for Pain. Active metFORMIN (GLUCOPHAGE) 1,000 mg tablet Take 1,000 mg by mouth two times daily. Active methylPREDNISolone (Medrol, Patricio,) 4 mg tabletIndications: Acute left-sided low back pain with left-sided sciatica,Injury of low back, initial encounter,Fall, initial encounter Take by mouth as instructed per packaging. 21 Tablet 07/26/2023 Active tiZANidine (ZANAFLEX) 4 mg tabletIndications: Acute left-sided low back pain with left-sided sciatica,Injury of low back, initial encounter,Fall, initial encounter Take 1 Tablet (4 mg) by mouth every 8 hours if needed for Muscle Spasm. 20 Tablet 07/26/2023 Active LORazepam (ATIVAN) 0.5 mg tab TAKE ONE TABLET BY MOUTH DAILY NEEDED FOR ANXIETY 12/30/2022 Active Active Problems Problem Noted Date Diagnosed Date Calculus of kidney 07/13/2007 Overview: on CT right kidney Abnormal maternal glucose tolerance, antepartum 07/13/2007 Social History Tobacco Use Types Packs/Day Years Used Date Smoking Tobacco: Never Smokeless Tobacco: Never Tobacco Cessation:Counseling Given: Not Answered Alcohol Use Standard Drinks/Week Comments Yes 0 (1 standard drink = 0.6 oz pur e alcohol) 1 drink per month Sex and Gender Information Value Date Recorded Sex Assigned at Not on file Gender Identity Not on file Sexual Orientation Not on file Obstetrics History Last Filed Vital Signs Vital Sign Reading Time Taken Comments Blood Pressure 169/90 08/16/2023 4:57 PM WHIP OPERATOR Pulse 89 08/16/2023 4:57 PM WHIP OPERATOR Temperature 36.6 ??C (97.8 ??F) 08/16/2023 4:57 PM CS T Respiratory Rate 16 08/16/2023 4:57 PM WHIP OPERATOR Oxygen Saturation 98% 08/16/2023 4:57 PM WHIP OPERATOR Inhaled Oxygen Concentration - - Weight 63.5 kg (140 lb) 08/16/2023 4:57 PM WHIP OPERATOR Height - - Body Mass Index - - Plan of Treatment Health Maintenance Due Date Last Done Comments Tdap 1983 Depression screening for age 12+ 1984 HIV for age 15-65 1987 BMI (ht and wt on same day) for age 18+ 1990 Hepatitis C screening for ag e 18-79 1990 Tetanus booster 1992 Pap test for age 21-65 1993 Colonoscopy through age 75 2017 Lipids for age 45-75 2017 Mammogram for age 45-75 2017 07/10/20 07, 07/10/2007 Zoster (shingles) series for age 50+ (1 of 2) 2022 COVID-19 vaccine series ( - 2022-24 season) 2024 Influenza for age 50-64 06/10/2024 Pneumococcal series for age 6-64 Aged Out No longer eligible b ased on patient's age to complete this topic Procedures Procedure Name Priority Date/Time Associated Diagnosis Comments SCAN-MAMMOGRAPHY REPORT 07/10/2007 12:00 AM CDT from Last 3 Months or Most Recently Relevant to Health Maintenance Results * SCAN-MAMMOGRAPHY REPORT (07/10/2007 12:00 AM CDT) Anatomical Region Laterality Modality Other Scanner OTHER from Last 3 Months or Most Recently Relevant to Health Maintenance Care Teams Rough And Truing Machine Operator Relationship Specialty Start Date End Date Pcp, No . PCP - General 09/15/18
== END 2024-06-12 16:10 | disposition home or self-care (01) ==
LOC: NFLDREF 06-14 08:46
PROVIDERS: PCP Internal Medicine; Referring Provider Internal Medicine; Visit Provider Nurse Practitioner Family
DX: N30.00 Acute cystitis without hematuria (principal)
CPT/HCPCS: 87086

== ENCOUNTER 2024-08-11 18:30 | Emergency (ER) | payer OTHER, SELFPAY ==
[2024-08-11 18:49] VITALS: BP 177/106; PULSE 99; RESP 18; TEMP 36.9; O2SAT 99; BMI 24.0
--- NOTE | 2024-08-11 19:00 | ED_ITS ---
HPI - Nausea/Vomiting/Diarrhea General Chief complaint: Nausea/Vomiting Stated complaint: vomitting and headache Time Seen by Provider: 08/11/24 18:49 History of Present Illness HPI Narrative: This 53-year-old female comes in reporting nausea and vomiting over the past couple days. She started Ozempic and began having these symptoms soon thereafter. She has uncontrolled type 2 diabetes and added this medicine to her current regimen which includes metformin. She does not report any diarrhea, fever, lightheadedness. She does report a headache. Related Data Previous Rx's ?Medication ?Instructions ?Recorded glipizide 5 mg tablet 5 mg PO BID #180 tabs 12/08/23 metformin 1,000 mg tablet 1,000 mg PO BIDWMEAL #180 tabs 06/29/24 blood-glucose meter,continuous #1 ea 08/09/24 (Dexcom G6 [employer]) blood-glucose sensor (Dexcom G6 #3 ea 08/09/24 Sensor device) blood-glucose transmitter (Dexcom #1 ea 08/09/24 G6 Transmitter device) glipizide 5 mg tablet 5 mg PO BID #180 tabs 08/09/24 lisinopril 10 mg tablet 10 mg PO QDAY #90 tabs 08/09/24 semaglutide 0.25 mg or 0.5 mg (2 0.25 mg (0.368 mL) subcut QWEEK 4 08/09/24 mg/3 mL) subcutaneous pen injector weeks #1.472 mL (Ozempic) Allergies Allergy/AdvReac Type Severity Reaction Status Date / Time Sulfa (Sulfonamide Allergy Verified 08/11/24 18:51 Antibiotics) Review of Systems Status of ROS: Reports: 10 or more systems reviewed and unremarkable except as noted in History and below Narrative: Constitutional: No fevers, no weight gain or loss. Eyes: No discharge. No vision changes. HENT: No congestion, no sore throat, no ear pain. Cardiovascular: No chest pain, no palpitations. Respiratory: No shortness of breath, no wheezes, no cough. Gastrointestinal: No abdominal pain, no diarrhea. Nausea and vomiting. Genitourinary: No dysuria, no hematuria. Musculoskeletal: Normal range of motion. Skin: No rashes, no pruritis. Neurological: No dizziness, weakness, sensory change, speech change. Endo/Heme/Allergies: No bruising or bleeding. No polydipsia. Pysch: no suicidality, no anxiety, no insomnia. All other systems reviewed and are negative. [facility] Medical History (Updated 08/11/24 @ 20:51 by Yaya Cornejo MD) Fall ?W19.XXXA - Unspecified fall, initial encounter (ICD-10) History of cellulitis ?Z87.2 - Personal history of diseases of the skin and subcutaneous tissue (ICD-10) Surgical History History of bilateral mastectomy ?Z90.13 - Acquired absence of bilateral breasts and nipples (ICD-10) History of bilateral oophorectomy (07/26/13) ?Z90.722 - Acquired absence of ovaries, bilateral (ICD-10) Social History What is your current living situation?: I presently have a place to live Problems where you live: no known problems In the past 12 months, utilities in danger of being shut off: declined to answer In past 12 months, lack of transportation kept you from medical appts, meetings, work, or getting things needed for daily living: no In the past 12 mos, have been you worried that your food would run out before you had money to buy more?: never true In the past 12 mos, the food you bought just didn't last and you didn't have money to buy more?: declined to answer Smoking Status: Never smoker Do you use any of these nicotine containing products: None Second hand tobacco smoke exposure: No Non-prescribed substance use: denies use How often does anyone, including family, friends and others, physically hurt you : never How often does anyone, including family, friends and others, insult or talk down to you: rarely How often does anyone, including family, friends and others, threaten you with harm: never How often does anyone, including family, friends and others, scream or curse at you: never Little interest or pleasure in doing things: not at all Feeling down, depressed, or hopeless: not at all Exam Narrative: Exam Narrative: Constitutional: Well-developed, well-nourished, no acute distress. HEENT: Normocephalic, atraumatic. Neck: Normal range of motion. Nontender. Supple. Heart: Regular. No murmurs. Normal rate. Intact distal pulses. Lungs: Clear to auscultation. No chest discomfort. No wheezes, rhonchi, or rales. Abdomen: Normal bowel sounds. Nontender. No rebound tenderness. Genitalia: Deferred. Back: No midline tenderness. Normal range of motion. Extremities: Normal range of motion. No injury. Skin: Intact. No rash. Warm. No erythema or pallor. Neurologic: No altered sensation. No weakness. Alert and oriented. Psychiatric: No suicidality. No anxiety or depression. No insomnia. Nursing notes and vitals signs are reviewed. Const: Vital Signs, click to edit/add: Vital Signs - 24 hr 08/11/24 18:49 08/11/24 19:15 08/11/24 20:21 Temperature 98.4 F 98.4 F 98.4 F Pulse Rate [Right Pulse Oximeter] 99 Respiratory Rate 18 Blood Pressure [Ri ght Upper Arm] 177/106 H Pulse Oximetry 99 Oxygen Delivery Me thod Room Air Course Vital Signs Vital signs: Initial Vital Signs Temperature 98.4 F 08/11/24 18:49 Temperature Source Temporal Artery Scan 08/11/24 18:49 Pulse Rate 99 08/11/24 18:49 Pulse Rhythm Regular 08/11/24 18:49 Pulse Strength 3+ Normal 08/11/24 18:49 Respiratory Rate 18 08/11/24 18:49 Blood Pressure 177/106 H 08/11/24 18:49 Blood Pressure Mean 129 H 08/11/24 18:49 Blood Pressure Position Sitting 08/11/24 18:49 Pulse Oximetry 99 08/11/24 18:49 Oxygen Delivery Method Room Air 08/11/24 18:49 Vital Signs Temperature 98.4 F 08/11/24 18:49 Pulse Rate 99 08/11/24 18:49 Respiratory Rate 18 08/11/24 18:49 Blood Pressure 177/106 H 08/11/24 18:49 Pulse Oximetry 99 08/11/24 18:49 Oxygen Delivery Method Room Air 08/11/24 18:49 Temperature 98.4 F 08/11/24 20:21 Pulse Rate 99 08/11/24 18:49 Respiratory Rate 18 08/11/24 18:49 Blood Pressure 177/106 H 08/11/24 18:49 Pulse Oximetry 99 08/11/24 18:49 Oxygen Delivery Method Room Air 08/11/24 18:49 Medications Administered Medications: Generic Name Dose Route Start Last Admin Trade Name Raul PRN Reason Stop Dose Admin Ketamine HCl 20 mg/ Sodium 100.2 mls @ 300.6 mls/hr 08/11/24 20:08 08/11/24 20:43 Chloride IVPB 08/11/24 20:09 Infused ONCE ONE Infusion Discontinued Medications Generic Name Dose Route Start Last Admin Trade Name Raul PRN Reason Stop Dose Admin Diphenhydramine HCl 25 mg 08/11/24 18:58 08/11/24 19:13 Diphenhydramine 50 Mg/Ml Inj IVP 08/11/24 18:59 25 mg ONCE ONE Administration Sodium Chloride 500 mls @ 500 mls/hr 08/11/24 18:58 08/11/24 20:21 0.9 % Sodium Chloride 500 Ml IV 08/11/24 19:57 Infused .Q1H ONE Infusion Ketorolac Tromethamine 15 mg 08/11/24 18:58 08/11/24 19:15 Ketorolac 30 Mg/Ml Inj IVP 08/11/24 18:59 15 mg ONCE ONE Administration Ondansetron HCl 4 mg 08/11/24 18:58 08/11/24 19:14 Ondansetron 2 Mg/Ml Inj IVP 08/11/24 18:59 4 mg ONCE ONE Administration MDM - Nausea/Vomiting/Diarrhea MDM Narrative Medical decision making narrative: This patient started Ozempic a few days ago and began having nausea with vomiting. She also reports a headache that she attributes to her recurrent vomiting. She arrives here with normal vital signs except for an elevated blood pressure. An IV was established where she received 500 mL of normal saline. She also received Benadryl 25 mg, Toradol 15 mg, and Zofran 4 mg. Her nausea symptoms have improved but she states that her headache is about the same. She then received an IV dose of ketamine 20 mg. This did bring some improvement to her headache. She is okay to be discharged home and did receive and [facility] prescription for Zofran. It seems that these symptoms are related to starting Ozempic a few days ago. I advised her to follow-up with her primary physician in this regard for ongoing plans to manage her diabetes. Discharge Plan Discharge Clinical Impression: Adverse drug effect, Vomiting, Headache Additional Instructions: Take Zofran as needed and directed. Follow up with primary physician for ongoing management of diabetes medications. Return if worsening. Prescriptions: No Action glipizide 5 mg tablet 5 mg PO BID Qty: 180 3RF metformin 1,000 mg tablet 1,000 mg PO BIDWMEAL Qty: 180 3RF lisinopril 10 mg tablet 10 mg PO QDAY Qty: 90 3RF (DME) Dexcom G6 [employer] Misc See Rx Instructions .Route Qty: 1 0RF Rx Instructions: As directed (DME) Dexcom G6 Sensor Device See Rx Instructions .Route Qty: 3 0RF Rx Instructions: As directed (DME) Dexcom G6 Transmitter Device See Rx Instructions .Route Qty: 1 0RF Rx Instructions: As directed glipizide 5 mg tablet 5 mg PO BID Qty: 180 3RF Ozempic 0.25 mg or 0.5 mg (2 mg/3 mL) pen injector 0.25 mg subcut QWEEK 28 Days Qty: 1.472 0RF Rx Instructions: for 4 weeks Follow Up/Referrals: Tg Powers MD [Primary Care Provider] - Stand Alone Forms: [employer] Info Instructions
--- OUTSIDE RECORDS SUMMARY | 2024-08-11 19:06 | XMS_ITS | Clinical Summary ---
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/13/2007 Overview (07/13/2007): on CT right kidney Abnormal maternal glucose [...] Comments Blood Pressure 169/90 08/16/2023 4:57 PM USER EXPERIENCE TEAM LEAD Pulse 89 08/16/2023 4:57 PM USER EXPERIENCE TEAM LEAD Temperature 36.6 ??C (97.8 ??F) 08/16/2023 4:57 PM CS T Respiratory Rate 16 08/16/2023 4:57 PM USER EXPERIENCE TEAM LEAD Oxygen Saturation 98% 08/16/2023 4:57 PM USER EXPERIENCE TEAM LEAD Inhaled Oxygen Concentration - - Weight 63.5 kg (140 lb) 08/16/2023 4:57 PM USER EXPERIENCE TEAM LEAD Height - - Body Mass Index - [...] (1 of 2) 2022 COVID-19 vaccine series (2023-25 season) 2024 Influenza for age 50-64 06/10/2024 [...] Recently Relevant to Health Maintenance Care Teams Center Punch Operator Relationship Specialty Start Date End Date Pcp, No . PCP - General 09/15/18
--- OUTSIDE RECORDS SUMMARY | 2024-08-11 19:06 | XMS_ITS | Clinical Summary ---
Author Organization [facility] Address [address] [place] [address] Care Team Providers Care Press Supervisor Name Role Phone Unavailable Primary Care Provider [...] a day. 30 Tablet 1 07/10/2022 Active Social History Tobacco Use Types Packs/Day Years [...] 1972 Hep C Screening (Preventive Services) 1972 Mammogram 1972 HIV Screening (Preventive Services) 1988 Adult Preventive Visit 1990 HepB (1) 1991 Cholesterol 2017 Zoster/Shingles (1 of 2) 2022 DTaP/Tdap/Td (2 - Tdap) 12/06/2023 12/06/2013 COVID-19 Vaccine ( season) 2024 11/25/2020, 11/04/2020 Influenza (#1) 2024 07/02/2021, 10/11, 09/11/2018, Additional [...] on patient's age to complete this topic RSV Aged Out No longer eligi ble based on patient's age to complete this topic MCV4 Aged Out No longer eligi ble based on patient's age to complete this topic
--- OUTSIDE RECORDS SUMMARY | 2024-08-11 19:06 | XMS_ITS ---
Author Organization [facility] Address [address] [place] [address] Care Team Providers Care Poultry Culler Name Role Phone Unavailable Unavailable Unavailable Surgery Details Not on file Complications Check Surgery Details section. Procedure Estimated Blood Loss Check Surgery Details section. Procedure Findings Check Surgery Details section. Procedure Specimens Taken Check Surgery Details section.
--- OUTSIDE RECORDS SUMMARY | 2024-08-11 19:06 | XMS_ITS | Clinical Summary ---
Author Organization [facility] Address [address] [place] [address] Care Team Providers Care Azure Principal Solution Specialist Name Role Phone Elsewhere, Pcp Primary Care Provider Unavailabl e Source Comments Patient records contain information from all sites at [facility]. For routine questions regarding patient records, call [phone] during business hours, M-F 8:00 AM - 5:00 PM Central Time. Record requests for emergency care only can be directed to [phone] at any time.[facility] Allergies Active Allergy Reactions Criticality Noted Date Comments Anastrozole Rash 07/24/2007 Sulfa (Sulfonamide Antibiotics) Rash High 10/10 Medications metFORMIN (GLUCOPHAGE) 500 mg tablet Take 2 tablets by mouth 2 (two) times a day with meals. 6 Active LORazepam (ATIVAN) 0.5 mg tablet Take 1 tablet by mouth daily as needed. 3 Active ciprofloxacin (CIPRO) 500 mg tablet Take 500 mg by mouth 2 (two) times a day before breakfast and dinner. Active Immunizations Name Administration Dates Next Due Influenza, Seasonal, Injectable 08/12/2007 Social History Tobacco Use Types Packs/Day Years Used Date Smoking Tobacco: Never Nutrition Answer Date Recorded Nutrition: EVOO Fat Source 13 03/21 Nutrition: Servings of Fruits/Vegetables per Day Not on file 03/21/2019 Dental Answer Date Recorded Dental: Regular Dentist Unknown 09/07/20 21 Comments No Sex and Gender Information Value Date Recorded Sex Assigned at Not on file Legal Sex Female 10:34 AM MSW Gender Identity Not on file Sexual Orientation [...] Tdap) 12/06/2023 12/06/2013 COVID-19 Vaccine (3 - season) 2024 11/25/2020, 11/04/2020 Influenza Vaccine (#1) 2024 3, 07/02/2021, 10/29/2019, Additional history exists Fasting Glucose for Diabetes Screening 12/21/2026 12/22/2023, 08/16/2023, 02/03/2016, Additional history exists Pneumococcal vaccine (0-64 years) Aged Out 10/25/2022, 07/26/2013 No longer eligibl e based on patient's age to complete this topic IPV Vaccines Aged Out No longer eligi ble based on patient's age to complete this topic Medical Devices Implanted Type Area Solar Hot Water Installer Device Identifier Shelf Expiration Date Model / Serial / Lot [place] Sally Contour Profile 550cc - Dey [id number] Implanted:Qty: 1 on 08/08/2007 Tissue Sole Cementer Other/Legacy - See Implant Description [employer] Description:Device Manufactu rer - [employer]. Body Location - Other. Left. Device Status Text - [id number]. Explanted Type Area Solar Hot Water Installer Device Identifier Shelf Expiration Date Model / Serial / Lot [place] Sally Contour Profile 550cc - Dey [id number] Explanted:Qty: 1 on 01/29/2016 Tissue Sole Cementer Other/Legacy - See Implant Description [employer] Description:Device Manufactu rer - [employer]. Body Location - Other. Right. Device Status Text - [id number]. Procedures Procedure Name Priority Date/Time Associated Diagnosis [...] 3:36 PM CDT 12/22/2023 3:48 PM CDT us Santiago Padilla M.D. LAB BLOOD ADD-ON Final Resu lt [facility] [address] [place] [address], [facility] [address] [place] [address] * MR Breast (07/25/2007 9:46 AM CDT) [...] ago COMPARISON: Mammogram July 10, 2007, from [facility] and ultrasound of July 24, 2007, from [facility] TECHNIQUE: ??Breast-enhanced protocol with and without IV [...] ago COMPARISON: Mammogram July 10, 2007, from [facility] andultrasound of July 24, 2007, from [facility] TECHNIQUE: Breast-enhanced protocol with and without IV gadolinium. RIGHT BREAST: Scattered fibroglandular densities within the right breast.A 2.0cm x 2.3cm x 2.8cm irregular enhancing mass in the 11-o'clocksubareolar position contains metallic susceptibility artifact from biopsymarking clip and is consistent with the biopsy-proven carcinoma (, image 94 and series 9, image 67). [...] focus of enhancement in the superior left eecuff65-p'clock position middle depth (series 100, image 33 [...] 12:32 Elida Riggs M.D. IMG MRI PROCEDURES Final Res ult from Last 3 Months or Most Recently Relevant to Health Maintenance Insurance [facility] Care Teams Azure Principal Solution Specialist Relationship Specialty Start Date End Date Elsewhere, Pcp PCP - General Internal Medicine 12/22/23
--- OUTSIDE RECORDS SUMMARY | 2024-08-11 19:06 | XMS_ITS | Referral Summary ---
Author Organization [facility] Address [address] [place] [address] Care Team Providers Care Clubhouse Manager Name Role Phone Elsewhere, Pcp Primary Care Provider Unavailabl e Source Comments Patient records contain information from all sites at [facility]. For routine questions regarding patient records, call [phone] during business hours, M-F 8:00 AM - 5:00 PM Central Time. Record requests for emergency care only can be directed to [phone] at any time.[facility] Allergies Active Allergy Reactions Criticality Noted Date [...] on file Legal Sex Female 10:34 AM VISUAL DISPLAY MANAGER Gender Identity Not on file Sexual Orientation [...] on file Medical Devices Implanted Type Area Windows 7 Deployment Lead Device Identifier Shelf Expiration Date Model / Serial / Lot [place] Sally Contour Profile 550cc - Dey [id number] Implanted:Qty: 1 on 08/08/2007 Tissue Bingo Checker Other/Legacy - See Implant Description [employer] Description:Device Manufactu rer - [employer]. Body Location - Other. Left. Device Status Text - [id number]. Explanted Type Area Windows 7 Deployment Lead Device Identifier Shelf Expiration Date Model / Serial / Lot [place] Sally Contour Profile 550cc - Dey [id number] Explanted:Qty: 1 on 01/29/2016 Tissue Bingo Checker Other/Legacy - See Implant Description [employer] Description:Device Manufactu rer - [employer]. Body Location - Other. Right. Device Status Text - [id number]. Procedures Procedure Name Priority Date/Time Associated Diagnosis Comments BASIC METABOLIC PANEL, S/P STAT 12/22/2023 3:36 PM CDT MR BREAST UNILATERAL Routine 07/25/2007 9:46 AM CDT from Last 3 Months or Most Recently Relevant to Health Maintenance Results * (ABNORMAL) Basic Metabolic Panel (12/22/2023 3:36 PM CDT) Pathologist [facility] Potassium, P 4.8 3.6 - 5.2 mmol/L [...] M.D. LAB BLOOD ADD-ON Final Resu lt [facility] [address] [place] [address], [facility] [address] [place] [address] * MR Breast (07/25/2007 9:46 AM CDT) [...] and ultrasound of July 24, 2007, from [facility] TECHNIQUE: ??Breast-enhanced protocol with and without IV [...] [place] andultrasound of July 24, 2007, from [facility] TECHNIQUE: Breast-enhanced protocol with and without IV gadolinium. RIGHT BREAST: Scattered fibroglandular densities within the right breast.A 2.0cm x 2.3cm x 2.8cm irregular enhancing mass in the 11-o'clocksubareolar position contains metallic susceptibility artifact from biopsymarking clip and is consistent with the biopsy-proven carcinoma ([id number], image 94 and series 9, image 67). [...] focus of enhancement in the superior left gvprab84-t'clock position middle depth (series 100, image 33 [...] Most Recently Relevant to Health Maintenance Insurance [facility] Care Teams Clubhouse Manager Relationship Specialty Start Date End Date Elsewhere, Pcp PCP - General Internal Medicine 12/22/23
[2024-08-11] MEDS: diphenhydrAMINE 50 MG/ML inj 25 MG IVP (19:13)
[2024-08-11] MEDS: ONDANSETRON 2 MG/ML inj 4 MG IVP (19:14)
[2024-08-11 19:15] VITALS: TEMP 36.9; O2SAT 99
[2024-08-11] MEDS: 0.9 % SODIUM CHLORIDE 500 ML 500 ML IV (19:15)
[2024-08-11] MEDS: KETOROLAC 30 MG/ML inj 15 MG IVP (19:15)
[2024-08-11] MEDS: KETAMINE HCL 20 MG in 0.9 % SODIUM CHLORIDE 100 ml 100 ML 300.6 MG IVPB (20:20)
[2024-08-11 20:21] VITALS: TEMP 36.9
[2024-08-11 21:14] VITALS: BP 135/74; PULSE 85; RESP 18; TEMP 36.9; O2SAT 99
[2024-08-11 21:17] VITALS: BP 135/74; PULSE 85; RESP 18; TEMP 36.9
== END 2024-08-11 21:17 | disposition home or self-care (01) ==
PROVIDERS: Emergency Provider Emergency Medicine Emergency Medical Services; PCP Family Medicine
DX: R11.2 Nausea with vomiting, unspecified (principal); T38.3X5A Adverse effect of insulin and oral hypoglycemic [antidiabetic] drugs, initial encounter
CPT/HCPCS: 94761; 96365; 96375; 99284; J1200; J1885; J2405; J3490; J7030

== ENCOUNTER 2025-09-12 12:06 | Outpatient (CLI) | payer OTHER, SELFPAY | END 2025-09-12 12:07 | disposition home or self-care (01) | LOC: NFLDUCREF 12:08 | PROVIDERS: PCP Family Medicine; Visit Provider Nurse Practitioner Family | DX: R07.89 Other chest pain (principal) | CPT/HCPCS: 85379 ==

== ENCOUNTER 2025-09-12 12:49 | Outpatient (CLI) | payer OTHER, SELFPAY | END 2025-09-12 12:50 | disposition home or self-care (01) | LOC: AMB 09-25 09:55 | PROVIDERS: PCP Family Medicine; Visit Provider Emergency Medicine | DX: R07.89 Other chest pain (principal) | CPT/HCPCS: A0425; A0433 ==

== ENCOUNTER 2025-09-12 13:28 | Emergency (ER) | payer OTHER, SELFPAY ==
[2025-09-12] VITALS (45 sets, daily range): BP systolic 96–169; BP diastolic 63–107; PULSE 82–123; RESP 0–26; TEMP 37.1; O2SAT 95–99; BMI 26.6
--- NOTE | 2025-09-12 13:39 | ED.CHESTPAIN ---
HPI - Chest Pain General Time Seen by Provider: 13:39 Date Seen: 09/12/25 Chief Complaint: Chest Pain Stated Complaint: Chest pain Time Seen by Provider: 09/12/25 13:39 Source: patient, EMS, RN notes reviewed and old records reviewed Mode of arrival: EMS Limitations: no limitations History of Present Illness HPI narrative: Chanel is a very pleasant 54-year-old female status post breast cancer mastectomy 16 years ago, with has type 2 diabetes and hyperlipidemia and hypertension who comes to the emergency room for evaluation regarding chest pain. Patient has noted intermittent chest discomfort that radiates into the left upper shoulder and occasionally into her back over the last 2 days. It has been intermittent. Occasionally it is associated with some shortness of breath. She has not had any nausea vomiting or coughing. Patient thought she was dealing with indigestion. She presented today to urgent care at which time they found that her high sensitivity troponin was greater than 1000 and her potassium was 5.2. An EKG showed sinus tachycardia and thus she was sent to the emergency room via EMS. EMS noted some ST depression, continued tachycardia and no evidence of a STEMI. An IV was placed and she received nitroglycerin p.o., fentanyl IV and aspirin. Here in the emergency room patient initially stated that her pain was not present at this time. Later in our conversation she tells me that it pain is 5/10. She denies any recent lower extremity edema calf tenderness history of DVT recent travels or long distance car rides. She does not use tobacco or alcohol. No recent trauma. Patient does have a strong family history of heart disease and both grandfathers and she had a paternal uncle with [place] at the age of 41. Of note, she did have history of breast cancer with mastectomy and radiation to her chest. Related Data Previous Rx's ?Medication ?Instructions ?Recorded blood-glucose sensor (Dexcom G6 #3 ea 08/09/24 Sensor device) blood-glucose transmitter (Dexcom #1 ea 08/09/24 G6 Transmitter device) blood-glucose,take off worker,cont #1 ea 08/09/24 (Dexcom G6 Manufacturing Controls Engineer) metformin 1,000 mg tablet 1,000 mg PO BIDWMEAL #180 tabs 08/19/25 Allergies Allergy/AdvReac Type Severity Reaction Status Date / Time Sulfa (Sulfonamide Allergy Verified 09/12/25 14:49 Antibiotics) Review of Systems Status of ROS Reports: 10 or more systems reviewed and unremarkable except as noted in History and below Const Denies: fever, chills or fatigue ENMT Denies: neck pain Cardio Reports: chest pain and shortness of breath with exertion (Occasionally); Denies: palpitations, edema, swelling of feet/ankles or lightheadedness Resp Reports: shortness of breath (Occasionally); Denies: cough GI Denies: abdominal pain, nausea or vomiting Musculo Reports: back pain; Denies: neck pain, extremity pain or extremity swelling Neuro Denies: headache Endo Denies: fatigue PFSH PFS Medical History History of cellulitis ?Z87.2 - Personal history of diseases of the skin and subcutaneous tissue (ICD-10) Surgical History History of bilateral mastectomy ?Z90.13 - Acquired absence of bilateral breasts and nipples (ICD-10) History of bilateral oophorectomy (07/26/13) ?Z90.722 - Acquired absence of ovaries, bilateral (ICD-10) Social History What is your current living situation?: I presently have a place to live Problems where you live: no known problems In the past 12 months, utilities in danger of being shut off: declined to answer In past 12 months, lack of transportation kept you from medical appts, meetings, work, or getting things needed for daily living: no In the past 12 mos, have been you worried that your food would run out before you had money to buy more?: never true In the past 12 mos, the food you bought just didn't last and you didn't have money to buy more?: declined to answer Smoking Status: Never smoker Do you use any of these nicotine containing products: None Second hand tobacco smoke exposure: No How often do you have a drink containing alcohol: never AUDIT-C Alcohol total score: 0 Non-prescribed substance use: denies use How often does anyone, including family, friends and others, physically hurt you: never How often does anyone, including family, friends and others, insult or talk down to you: rarely How often does anyone, including family, friends and others, threaten you with harm: never How often does anyone, including family, friends and others, scream or curse at you: never Health Related Social Needs: Other personal risk factors, not elsewhere classified (Z91.89) Exam Narrative Exam Narrative: Alert and oriented. Anxious which is to be expected. Mentation and speech is normal face is symmetrical. Neck is supple. Heart with a tachycardic rate normal rhythm. I do not hear muffled heart sounds. Lungs are clear bilaterally. Well-healed mastectomy scars bilaterally. Abdomen soft. Lower extremities without calf tenderness or edema. Date of Rosina sign. Moving extremities without difficulty. Const Vital Signs, click to edit/add: Vital Signs - 24 hr 09/12/25 13:32 09/12/25 13:47 09/12/25 14:04 Temperature 98.7 F Pulse Rate 104 H Pulse Rate [Right Pulse Oximeter] 104 H Respiratory Rate 18 14 Blood Pressure 144/89 H 169/98 H Blood Pressure [Right Upper Arm] 166/107 H Pulse Oximetry 99 98 Oxygen Delivery Method Room Air Room Air 09/12/25 14:05 09/12/25 14:15 09/12/25 14:16 Temperature Pulse Rate 103 H 100 102 H Pulse Rate [Right Pulse Oximeter] Respiratory Rate 10 L 12 Blood Pressure 158/95 H Blood Pressure [Right Upper Arm] Pulse Oximetry 98 98 97 Oxygen Delivery Method 09/12/25 14:30 09/12/25 14:45 09/12/25 14:49 Temperature Pulse Rate 109 H 112 H 112 H Pulse Rate [Right Pulse Oximeter] Respiratory Rate Blood Pressure Blood Pressure [Right Upper Arm] Pulse Oximetry 96 96 97 Oxygen Delivery Method 09/12/25 15:00 09/12/25 15:01 09/12/25 15:15 Temperature Pulse Rate 114 H 116 H 122 H Pulse Rate [Right Pulse Oximeter] Respiratory Rate 7 L 10 L 13 Blood Pressure 129/83 Blood Pressure [Right Upper Arm] Pulse Oximetry 95 96 96 Oxygen Delivery Method Room Air 09/12/25 15:16 09/12/25 15:30 09/12/25 15:31 Temperature Pulse Rate 122 H 121 H 118 H Pulse Rate [Right Pulse Oximeter] Respiratory Rate 11 L 10 L 10 L Blood Pressure 110/77 120/80 Blood Pressure [Right Upper Arm] Pulse Oximetry 95 96 95 Oxygen Delivery Method 09/12/25 15:45 09/12/25 15:46 09/12/25 15:47 Temperature Pulse Rate 119 H 122 H 122 H Pulse Rate [Right Pulse Oximeter] Respiratory Rate 18 11 L 11 L Blood Pressure 96/73 Blood Pressure [Right Upper Arm] Pulse Oximetry 96 96 96 Oxygen Delivery Method 09/12/25 16:00 09/12/25 16:01 09/12/25 16:15 Temperature Pulse Rate 123 H 123 H 118 H Pulse Rate [Right Pulse Oximeter] Respiratory Rate 9 L 0 L 13 Blood Pressure 106/73 118/73 Blood Pressure [Right Upper Arm] Pulse Oximetry 97 96 96 Oxygen Delivery Method Room Air 09/12/25 16:16 09/12/25 16:30 09/12/25 16:31 Temperature Pulse Rate 117 H 107 H 110 H Pulse Rate [Right Pulse Oximeter] Respiratory Rate 9 L 8 L Blood Pressure 119/71 Blood Pressure [Right Upper Arm] Pulse Oximetry 97 96 96 Oxygen Delivery Method 09/12/25 16:45 09/12/25 16:46 09/12/25 17:00 Temperature Pulse Rate 107 H 107 H 102 H Pulse Rate [Right Pulse Oximeter] Respiratory Rate 10 L Blood Pressure 117/72 Blood Pressure [Right Upper Arm] Pulse Oximetry 96 95 96 Oxygen Delivery Method 09/12/25 17:01 09/12/25 17:15 09/12/25 17:16 Temperature Pulse Rate 100 101 H 100 Pulse Rate [Right Pulse Oximeter] Respiratory Rate 12 19 26 H Blood Pressure 96/63 120/89 Blood Pressure [Right Upper Arm] Pulse Oximetry 97 96 97 Oxygen Delivery Method Room Air 09/12/25 17:30 09/12/25 17:31 09/12/25 17:45 Temperature Pulse Rate 96 93 89 Pulse Rate [Right Pulse Oximeter] Respiratory Rate 24 14 10 L Blood Pressure 113/75 Blood Pressure [Right Upper Arm] Pulse Oximetry 97 96 97 Oxygen Delivery Method 09/12/25 17:46 09/12/25 18:00 09/12/25 18:01 Temperature Pulse Rate 86 88 85 Pulse Rate [Right Pulse Oximeter] Respiratory Rate 16 16 15 Blood Pressure 97/70 100/71 Blood Pressure [Right Upper Arm] Pulse Oximetry 98 97 97 Oxygen Delivery Method Room Air 09/12/25 18:15 09/12/25 18:16 12/04/25 18:30 Temperature Pulse Rate 84 83 83 Pulse Rate [Right Pulse Oximeter] Respiratory Rate Blood Pressure 97/66 Blood Pressure [Right Upper Arm] Pulse Oximetry 96 96 96 Oxygen Delivery Method 09/12/25 18:31 09/12/25 18:45 09/12/25 18:46 Temperature Pulse Rate 83 82 85 Pulse Rate [Right Pulse Oximeter] Respiratory Rate 23 Blood Pressure 108/72 106/71 Blood Pressure [Right Upper Arm] Pulse Oximetry 96 96 97 Oxygen Delivery Method 09/12/25 19:00 09/12/25 19:01 09/12/25 19:15 Temperature Pulse Rate 85 85 86 Pulse Rate [Right Pulse Oximeter] Respiratory Rate Blood Pressure 98/67 111/75 Blood Pressure [Right Upper Arm] Pulse Oximetry 97 97 97 Oxygen Delivery Method Room Air Documenting provider has reviewed patient's vital signs: yes Course Course ED Course: Differential diagnosis includes but is not limited to acute coronary syndrome, non STEMI, pericarditis, myocarditis, aortic dissection. Patient does have elevated troponin in urgent care. Given her description of pain radiating into the back and past history I would recommend aortic study to rule out dissection. Will start nitroglycerin for discomfort. Patient would be candidate for beta-minh if blood pressure tolerates that. Will check CBC, comprehensive panel, troponin in the ED. EKG and bus monitor ordered as well. Reevaluation(s) Reevaluation #1: After nitro drip initiation patient's pain dropped to 3. We further increase nitro and she is now at a level of 1. The pleasure of speaking to Cardiology please see below under consultation. I spoke to patient regarding cardiology recommendations and she is in agreement with our plan. Patient now with pain less than 1. Heart rate remains tachycardic and thus we did give her 500 mL bolus and heart rate has improved to 117. Patient has received her beta-minh. Recheck of potassium here which had been elevated at 5.2 in the clinic is 4.2. Glucose significantly elevated at 294. Patient currently on metformin 1000 mg daily. Did also have gestational diabetes and had to use insulin at that time. Will give 6 units of insulin subQ S patient is and p.o.. Will also add additional 500 mL bolus of fluids for presumed does Modic diuresis as systolic blood pressure is now 96. Fortunately patient is pain-free at this time. Bicarb is 20. Anion gaps at 16 (normal 7-15) Blood pressure improves with 2nd 500 mL bolus. Pain remains resolved. Consultations Consultation #1: I was able to speak to [facility] commercial producer Dr. Palma. At this time recommends against ticagrelor but is supportive of heparin, nitroglycerin. Goal is to get patient's pain is 0. If that does not achievable will need to contact him once again and elevate transfer to expedited status. Does also recommend metoprolol tartrate 25 mg p.o.. Vital Signs Vital signs: Initial Vital Signs Temperature 98.7 F 09/12/25 13:32 Temperature Source Temporal Artery Scan 09/12/25 13:32 Pulse Rate 104 H 09/12/25 13:32 Respiratory Rate 18 09/12/25 13:32 Blood Pressure 166/107 H 09/12/25 13:32 Blood Pressure Mean 126 H 09/12/25 13:32 Blood Pressure Position Sitting 09/12/25 13:32 Pulse Oximetry 99 09/12/25 13:32 Oxygen Delivery Method Room Air 09/12/25 13:32 Vital Signs Temperature 98.7 F 09/12/25 13:32 Pulse Rate 104 H 09/12/25 13:32 Respiratory Rate 18 09/12/25 13:32 Blood Pressure 166/107 H 09/12/25 13:32 Pulse Oximetry 99 09/12/25 13:32 Oxygen Delivery Method Room Air 09/12/25 13:32 Temperature 98.7 F 09/12/25 13:32 Pulse Rate 86 09/12/25 19:15 Respiratory Rate 23 09/12/25 18:46 Blood Pressure 111/75 09/12/25 19:15 Pulse Oximetry 97 09/12/25 19:15 Oxygen Delivery Method Room Air 09/12/25 19:15 Medications Administered Medications: Discontinued Medications Generic Name Dose Route Start Last Admin Trade Name Freq PRN Reason Stop Dose Admin Heparin Sodium (Porcine) 4,000 unit 09/12/25 14:46 09/12/25 15:31 Heparin 5,000 Unit/0.5 Ml Inj IVP 09/12/25 14:47 4,000 unit ONCE ONE Administration Nitroglycerin/Dextrose 25,000 mcg in 250 mls @ 3 mls/hr 09/12/25 13:47 09/12/25 14:54 Nitroglycerin/Dextrose IVPB 40 mcg/min .TITRATE PRN 24 mls/hr Chest Pain Infusion Protocol 5 MCG/MIN Heparin Sodium/Dextrose 25,000 unit in 500 mls @ 0 mls/hr 09/12/25 15:00 09/12/25 15:26 Heparin IV 850 unit/hr .Q0M ALEX 17 mls/hr Protocol Administration Per Protocol Sodium Chloride 500 mls @ 500 mls/hr 09/12/25 16:59 09/12/25 17:00 0.9 % Sodium Chloride 500 Ml IV 09/12/25 17:58 Infused .Q1H ALEX Infusion Sodium Chloride 500 mls @ 500 mls/hr 09/12/25 17:29 09/12/25 17:37 0.9 % Sodium Chloride 500 Ml IV 09/12/25 18:28 500 mls/hr .Q1H ALEX Administration Insulin Human Regular 6 unit 09/12/25 17:13 09/12/25 17:26 Insulin Regular, Human 100 Unit/Ml Vial SUBCUT 09/12/25 17:14 6 unit ONCE ONE Administration Metoprolol Tartrate 25 mg 09/12/25 14:46 09/12/25 15:31 Metoprolol Tartrate 25 Mg Tablet PO 09/12/25 14:47 25 mg ONCE ONE Administration MDM - Chest Pain MDM Narrative Medical decision making narrative: 1. [id number] noted to have 2 days of intermittent left anterior chest pain. Risk factors include type 2 diabetes, hypertension, hyperlipidemia. Strong family history of heart disease in the male members of the family. Today in urgent care high sensitivity troponin greater than 1000. Troponin I done here at [facility] 1.64 (normal 0.01-0.04) patient's pain improved with EMS care administration of nitroglycerin, aspirin, fentanyl. Here in the emergency room nitroglycerin drip initiated with improvement of pain down to 3 and eventually to 0. Oral beta-minh administered. Heparin bolus and drip initiated. Cardiac consult and acceptance to [facility] by Dr. Palma. Unfortunately on a delay at this time. 2. Extra thoracic fluid collection-this was noted on CT. Breast cancer status post mastectomy. On exam skin is not erythematous. Fluctuance can be palpated at the right sternal border. No pain with palpation. CT shows no evidence of stranding or symptoms of infection. 3. Hyperglycemia-patient has history of type 2 diabetes and currently using metformin 1000 mg a day. She did also have gestational diabetes and required insulin at that time. Patient is given 6 units of regular insulin. Will recheck glucose and continue to monitor. Suspect some osmotic diuresis secondary to ongoing hyperglycemia and thus she was given a total of 1 L of normal saline. Heart rate has normalized at this time. 4. Hypertension -improved with nitroglycerin. 4. Disposition -accepted for transfer by Dr. Palma. Patient will be ground EMS ALS transfer to [facility]. Medical Records Data Attestation: I reviewed the patient's medical records. Lab Data Attestation: I reviewed the patient's lab results. Labs: Lab Results 09/12/25 09/12/25 Range/Units 14:32 15:15 WBC 12.07 H (4.50-11.00) K/uL RBC 5.02 (4.00-5.20) m/uL Hgb 13.9 (12.0-16.0) gm/dL Hct 42.1 (33.0-51.0) % MCV 84 (80-100) fL MCH 28 (26-34) pg MCHC 33 (32-36) gm/dL RDW Coeff of Preet 12.2 (11.5-15.5) % Plt Count 218 (140-440) K/uL Neut % (Auto) 80.4 H (42.0-72.0) % Lymph % (Auto) 11.4 L (20-44) % [place] % (Auto) 7.4 (0.0-11.0) % Eos % (Auto) 0.2 (0.0-7.0) % Baso % (Auto) 0.3 (0.0-3.0) % Neut # (Auto) 9.70 H (1.7-7.0) K/uL Lymph # (Auto) 1.40 (0.90-2.90) K/uL [place] # (Auto) 0.90 (0.00-0.90) K/UL Eos # (Auto) 0.00 (0.00-0.50) K/uL Baso # (Auto) 0.00 (0.00-0.30) K/uL Abs Immat Gran (auto) 0.00 (0.00-0.30) K/uL Imm/Tot Granulo (auto) 0.3 % INR 0.99 (0.91-1.10) Sodium 133 L (135-149) mmol/L Potassium 4.2 (3.6-5.1) mmol/L Chloride 97 (96-114) mmol/L Carbon Dioxide 20 (20-32) mmol/L Anion Gap 16 H (7-15) mEq/L BUN 14 (7-30) mg/dL Creatinine 0.4 L (0.5-1.5) mg/dL Estimated Creat Clear 142.07 Estimated GFR 119 ml/min Glucose 294 H (60-115) mg/dL Calcium 8.9 (8.4-10.6) mg/dL Total Bilirubin 0.5 (0.1-1.5) mg/dL AST 48 H (12-35) U/L ALT 20 (4-35) U/L Alkaline Phosphatase 107 (40-150) U/L Troponin I 1.64 H* (0.01-0.04) ng/mL C-Reactive Protein 1.1 H (0.5-1.0) mg/dL Total Protein 7.5 (6.0-8.3) g/dL Albumin 4.1 (3.3-5.0) g/dL Imaging Data CT Chest/Ab/Pelvis: Attestation: I have reviewed the pertinent imaging results. My impression: I do not note any PE. I do not note a day aortic dissection or any infiltrates. Radiologist's impression: FINDINGS: Aorta and its branches: Well-timed contrast bolus. Normal caliber of the thoracic and abdominal aorta. No intramural hematoma. Minimal atherosclerotic plaques. No penetrating atherosclerotic ulcers. No aortic dissection. No aneurysm. No coronary artery calcifications. Normal arch great vessels. The mesenteric vessels are patent without critical stenosis. The common, internal, and external iliac arteries are patent without critical stenosis. The common femoral arteries are patent without critical stenosis. Heart: No pericardial effusion. Normal cardiac chamber size. No central pulmonary embolus. Airway: Normal tracheobronchial tree. Lungs: There is some radiation fibrosis in the anterior right upper lobe. There is a 4 millimeter nodule in the right lower lobe on series 5, image 45. Subsolid morphology. No change since 12/19/2023. no consolidations. Normal appearance of the pulmonary interstitium. Pleura: No pleural effusion. No pneumothorax. Lymph nodes: No thoracic adenopathy. Mediastinum: No pneumomediastinum. No mass. Chest wall: Bilateral mastectomies. There are dystrophic calcifications in the medial right upper mastectomy site. There is a new fluid collection that measures 1.6 x 6.6 x 5.3 cm (AP by transverse by cc). The fluid collection is at the midline and to the right of midline and tapers out towards the right surgical scar. It extends in front of the distal sternum and xiphoid. No significant remodeling or periostitis. No adjacent inflammatory stranding. This was not previously present. Liver: Normal. No mass. Gallbladder and bile ducts: Normal gallbladder. No bile duct dilation. Pancreas: Normal. Spleen: Normal. Adrenal glands: Normal. Kidneys: Normal parenchyma. No cyst or solid mass. No calculi. No urinary tract dilation. Urinary bladder: Normal. Pelvis: No cyst or mass. Bowel: No dilated or inflamed bowel. Normal appendix. Redundant colon. [id number]-sffts stool burden. Lymph nodes: No adenopathy. Peritoneum: No ascites. Abdominal wall: Fat containing umbilical hernia. Diastasis recti. BONES: No fractures. No focal bone lesions. IMPRESSION: 1. No acute aortic pathology in the chest, abdomen, or pelvis. 2. There is a new fluid collection in the central lower chest. Lack of significant adjacent inflammation suggest that this is not an abscess. Recommend direct clinical visualization. 3. Moderate to large stool burden. No acute findings in the abdomen. ECG Data Attestation: I personally reviewed and interpreted this ECG as follows: ECG interpretation date: 09/12/25 Interpretation: EKG by my read shows sinus tachycardia at a rate of 104. There is some subtle ST depression in V 2 3 and 4. QTC is 497. Normal MD interval. site monitor shows no evidence of arrhythmia or ectopy. Sinus tachycardia now normalized to sinus rhythm. Critical Care Time Critical Care Time Critical Care Time: Yes Attestation: The patient required my highest level preparedness to intervene emergently and I personally spent this critical care time directly and personally managing the patient. This critical care time included: Obtaining a history; Examining the patient; Pulse oximetry; Ordering and reviewing of studies; Arranging urgent treatment with development of a management plan; Evaluation of patients response to treatment; Frequent reassessment discussions with other providers. This critical care time was performed to assess and manage the high probability of imminent life-threatening deterioration that could result in multiorgan failure. It was exclusive of separate billable procedures and treating other patients and teaching time. Total Critical Care Time in Minutes: 90 Discharge Plan Discharge Clinical Impression: Non-STEMI (non-ST elevated myocardial infarction), Tachycardia Patient Disposition: Xfer [facility] Discharge Location: [facility] Condition: Improved Prescriptions: No Action (DME) Dexcom G6 Manufacturing Controls Engineer Misc See Rx Instructions .Route Qty: 1 0RF Rx Instructions: As directed (DME) Dexcom G6 Sensor Device See Rx Instructions .Route Qty: 3 0RF Rx Instructions: As directed (DME) Dexcom G6 Transmitter Device See Rx Instructions .Route Qty: 1 0RF Rx Instructions: As directed metformin 1,000 mg tablet 1,000 mg PO BIDWMEAL Qty: 180 0RF Stand Alone Forms: [employer] Info Instructions
--- NOTE | 2025-09-12 13:46 | CRLHL7_ITS ---
For Patients: As a result of the 21st Century Cures Act, medical imaging exams and procedure reports are released immediately into your electronic medical record. You may view this report before your referring provider. If you have questions, please contact your health care provider. INDICATION: Upper back and chest pain with nausea for 12 hours. COMPARISON: 12/19/2023 CT abdomen pelvis TECHNIQUE: CT angiogram chest, abdomen, and pelvis without and with contrast, aortic protocol. Multiplanar axial, coronal, and sagittal reformats are included. MIP images to improve detection of aortic pathology. Intravenous contrast: 95 ml Isovue 370. FINDINGS: Aorta and its branches: Well-timed contrast bolus. Normal caliber of the thoracic and abdominal aorta. No intramural hematoma. Minimal atherosclerotic plaques. No penetrating atherosclerotic ulcers. No aortic dissection. No aneurysm. No coronary artery calcifications. Normal arch great vessels. The mesenteric vessels are patent without critical stenosis. The common, internal, and external iliac arteries are patent without critical stenosis. The common femoral arteries are patent without critical stenosis. Heart: No pericardial effusion. Normal cardiac chamber size. No central pulmonary embolus. Airway: Normal tracheobronchial tree. Lungs: There is some radiation fibrosis in the anterior right upper lobe. There is a 4 millimeter nodule in the right lower lobe on series 5, image 45. Subsolid morphology. No change since 12/19/2023. no consolidations. Normal appearance of the pulmonary interstitium. Pleura: No pleural effusion. No pneumothorax. Lymph nodes: No thoracic adenopathy. Mediastinum: No pneumomediastinum. No mass. Chest wall: Bilateral mastectomies. There are dystrophic calcifications in the medial right upper mastectomy site. There is a new fluid collection that measures 1.6 x 6.6 x 5.3 cm (AP by transverse by cc). The fluid collection is at the midline and to the right of midline and tapers out towards the right surgical scar. It extends in front of the distal sternum and xiphoid. No significant remodeling or periostitis. No adjacent inflammatory stranding. This was not previously present. Liver: Normal. No mass. Gallbladder and bile ducts: Normal gallbladder. No bile duct dilation. Pancreas: Normal. Spleen: Normal. Adrenal glands: Normal. Kidneys: Normal parenchyma. No cyst or solid mass. No calculi. No urinary tract dilation. Urinary bladder: Normal. Pelvis: No cyst or mass. Bowel: No dilated or inflamed bowel. Normal appendix. Redundant colon. Tokhmwzz-eu-mtfwp stool burden. Lymph nodes: No adenopathy. Peritoneum: No ascites. Abdominal wall: Fat containing umbilical hernia. Diastasis recti. BONES: No fractures. No focal bone lesions. IMPRESSION: 1. No acute aortic pathology in the chest, abdomen, or pelvis. 2. There is a new fluid collection in the central lower chest. Lack of significant adjacent inflammation suggest that this is not an abscess. Recommend direct clinical visualization. 3. Moderate to large stool burden. No acute findings in the abdomen. Please note that all CT scans at this facility use dose modulation, iterative reconstruction, and/or weight-based dosing when appropriate to reduce radiation dose to as low as reasonably achievable. Dictated by Daphne Balderas MD @ 09/12/2025 2:20:41 PM (Electronically Signed)
[2025-09-12] MEDS: NITROGLYCERIN/DEXTROSE 25,000 MCG/250 ML BOTTLE 3 MCG IVPB (14:08)
[2025-09-12 14:48] LABS: Hematocrit* 42.1 % (33.0-51.0); Hemoglobin* 13.9 gm/dL (12.0-16.0); Immature Granulocytes Pct Auto 0.3 %; Mean Corpuscular HGB Conc 33 gm/dL (32-36); Mean Corpuscular Hemoglobin 28 pg (26-34); Mean Corpuscular Volume 84 fL (80-100); RDW Coefficient of Variation % 12.2 % (11.5-15.5); Red Blood Count* 5.02 m/uL (4.00-5.20); White Blood Count* 12.07 K/uL (4.50-11.00)
[2025-09-12 14:51] LABS: Immature Granulocytes Abs Auto 0.00 K/uL (0.00-0.30); Lymphocytes Absolute Auto 1.40 K/uL (0.90-2.90); Slide Review Reflex No
[2025-09-12 14:57] LABS: Chloride* 97 mmol/L (96-114); Potassium* 4.2 mmol/L (3.6-5.1); Sodium* 133 mmol/L (135-149)
[2025-09-12 15:00] LABS: Alanine Aminotransferase* 20 U/L (4-35); Aspartate Amino Transferase* 48 U/L (12-35); Blood Urea Nitrogen* 14 mg/dL (7-30); Creatinine* 0.4 mg/dL (0.5-1.5); Est. Creatinine Clearance* 142.07; Estimated Glomerular Filt Rate 119 ml/min
[2025-09-12 15:01] LABS: Alkaline Phosphatase* 107 U/L (40-150); Anion Gap 16 mEq/L (7-15); Bilirubin Total* 0.5 mg/dL (0.1-1.5); Calcium* 8.9 mg/dL (8.4-10.6); Carbon Dioxide* 20 mmol/L (20-32); Glucose* 294 mg/dL (60-115); Total Protein* 7.5 g/dL (6.0-8.3)
[2025-09-12 15:20] LABS: Albumin* 4.1 g/dL (3.3-5.0)
[2025-09-12] MEDS: HEPARIN 25,000 UNIT/500 ML BAG 17 UNIT IV (15:26)
[2025-09-12] MEDS: HEPARIN 5,000 UNIT/0.5 ML INJ 4000 UNIT IVP (15:31)
[2025-09-12] MEDS: METOPROLOL TARTRATE 25 MG TABLET PO (15:31)
[2025-09-12] MEDS: 0.9 % SODIUM CHLORIDE 500 ML 500 ML IV ×2 (16:00→17:37)
[2025-09-12 16:42] LABS: INR 0.99 (0.91-1.10); Prothrombin Time 13.9 Seconds
[2025-09-12] MEDS: INSULIN REGULAR, HUMAN 100 UNIT/ML VIAL 6 UNIT SUBCUT (17:26)
== END 2025-09-12 19:35 | disposition short-term general hospital (02) ==
PROVIDERS: Emergency Provider Family Medicine; PCP Family Medicine
DX: I21.4 Non-ST elevation (NSTEMI) myocardial infarction (principal); R00.0 Tachycardia, unspecified; E11.65 Type 2 diabetes mellitus with hyperglycemia; E78.00 Pure hypercholesterolemia, unspecified; I10 Essential (primary) hypertension; Z90.13 Acquired absence of bilateral breasts and nipples; Z85.3 Personal history of malignant neoplasm of breast; Z79.84 Long term (current) use of oral hypoglycemic drugs; Z88.2 Allergy status to sulfonamides; Z82.49 Family history of ischemic heart disease and other diseases of the circulatory system; Z92.3 Personal history of irradiation; R07.89 Other chest pain
CPT/HCPCS: 36415; 71275; 74174; 80053; 82947; 84484; 85025; 85610; 86140; 93005; 96361; 96365; 96375; 96376; 99285; 99291; 99292; A9270; J1644; J7030; Q9967

== ENCOUNTER 2025-09-12 19:21 | Outpatient (CLI) | payer OTHER, SELFPAY | END 2025-09-12 19:22 | disposition home or self-care (01) | LOC: AMB 09-16 19:05 | PROVIDERS: PCP Family Medicine; Visit Provider Student in an Organized Health Care Education/Training Program | DX: I21.4 Non-ST elevation (NSTEMI) myocardial infarction (principal) | CPT/HCPCS: A0425; A0434 ==

== ENCOUNTER 2025-09-25 10:41 | Outpatient (CLI) | payer OTHER, SELFPAY ==
--- NOTE | 2025-09-25 11:15 | CRLHL7_ITS ---
For Patients: As a result of the Century Cures Act, medical imaging exams and procedure reports are released immediately into your electronic medical record. You may view this report before your referring provider. If you have questions, please contact your health care provider. Indication: Anterior chest wall mass Technique: Grayscale and color Doppler ultrasound of the midline chest wall performed. Comparison: 09/12/2025 CT Findings: Circumscribed fluid collection is present within the chest wall. No solid component. No internal color flow. This measures approximately 6 cm. Internal echoes are present which are considered normal. Impression: Chronic postop subcutaneous seroma. No suspicious findings. No additional testing or treatment indicated. Dictated by Manjinder Hawley MD @ 09/25/2025 11:22:09 AM (Electronically Signed)
== END 2025-09-25 10:42 | disposition home or self-care (01) ==
LOC: US 10:41
PROVIDERS: PCP Family Medicine; Visit Provider Student in an Organized Health Care Education/Training Program
DX: T81.89XA Other complications of procedures, not elsewhere classified, initial encounter (principal); R22.2 Localized swelling, mass and lump, trunk
CPT/HCPCS: 76604

== ENCOUNTER 2025-09-27 18:09 | Emergency (ER) | payer OTHER, SELFPAY ==
--- OUTSIDE RECORDS SUMMARY | 2025-09-27 18:12 | XMS_ITS | Clinical Summary ---
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 30 Tablet ctive Social History Tobacco UseTypesPacks/DayYears UsedDateSmoking Tobacco: Never Assessed CommentsUnknownSex and Gender InformationValueDate RecordedSex Assigned at Not on fileLegal TgjPrjhah08/17/2015 1:08 PM CDTGender IdentityNot on fileSexual OrientationNot on file Last Filed Vital Signs Vital SignReadingTime TakenCommentsBlood Pressure--Pulse--Lzssueohffb74.8 ??C (98.2 ??F)07/10/2022 7:25 PM CDTRespiratory Rate--Oxygen Saturation--Inhaled Oxygen Concentration--Ivxfgy45.3 kg (155 lb)07/10/2022 7:25 PM ARPLrmiav729 cm (5' 3)07/10/2022 7:25 PM CDTBody Mass Index27.4610/10/2021 7:25 PM CDT Plan of Treatment Health MaintenanceDue DateLast DoneCommentsCervical Cancer Screening Due 1972Colon Cancer Screening Plan Due1972Hep C Screening (Preventive Services)1972 2272Ncvpwhjmq37/08/1973HIV Screening (Preventive Services) 1988Adult Preventive Visit1990HepB Vaccine (1)1991Cholesterol 2017Pneumococcal Vaccine 50+ Yrs (2 of 2 - PCV)/ Zoster/Shingles Vaccine (1 of 2)3DTaP/Tdap/Td Vaccine (2 - Tdap) /COVID-19 Vaccine (3 - 2024- season)/, 11/04/2020Influenza Vaccine (#1)/, 10/29/2019, 09/11/2018, Additional history existsRSV Vaccine (1 - 1-dose 75+ series)2047HepA VaccineAged OutNo longer eligible based on patient's age to complete this topic Hib VaccineAged OutNo longer eligible based on patient's age to complete this topicIPV (Polio) VaccineAged OutNo longer eligible based on patient's age to complete this topicMCV4 VaccineAged OutNo longer eligible based on patient's age to complete this topicMeningococcal B VaccineAged OutNo longer eligible based on patient's age to complete this topic Insurance
--- OUTSIDE RECORDS SUMMARY | 2025-09-27 18:13 | XMS_ITS | Clinical Summary ---
Author Organization [facility] Address [address] [place] [address] Care Team Providers Care Hydrocrane Operator Name Role Phone Zeynep Dominguez MD Primary Care Prov ider Allergies Active AllergyReactionsCriticalityNoted JxfrYemdkzmdOiycwypgktbRfri07/15/2007 Unlisted Allergen (Include Detail In Comments)Other - Describe In Comment Field High09/20/2025 Hormone replacement therapy due to history of SCAD. Sulfa (Sulfonamide Antibiotics)HhfxSsrw55/12/2023 Medications MedicationSigDispense QuantityRefillsLast FilledStart DateEnd DateStatus acetaminophen (Tylenol Extra Strength) 500 mg tablet Take 1,000 mg by mouth every 6 hours if needed for Pain. Max acetaminophen dose: 4000mg in 24 hrs.Active metFORMIN (GLUCOPHAGE) 1,000 mg tablet Take 1,000 mg by mouth two times daily.Active rosuvastatin (CRESTOR) 40 mg tablet Indications:NSTEMI (non-ST elevated myocardial infarction) (HC),Hyperlipidemia, unspecified hyperlipidemia typeTake 1 Tablet (40 mg) by mouth at bedtime. 90 Tablet 2:38 PM CST5Active disposable insulin pen needle 32 gauge x 5/32 (disposable insulin pen needle) Indications:Type 2 diabetes mellitus without complication, without long-term current use of insulin (HC)For administering insulin at home. Remove the 2 covers on the insulin pen needle before administering insulin dose. 100 Each 09/18/2025 4:40 PM CST5Active Blood-Glucose Meter Indications:Type 2 diabetes mellitus without complication, without long-term current use of insulin (HC)Dispense meter covered by pts insurance. 1 Each 09/18/2025 4:40 PM CST5Active lancets Indications:Type 2 diabetes mellitus without complication, without long-term current use of insulin (HC)Dispense item covered by pt ins. E11.65 IDDM type II, uncontrolled - Test 2 times/day 100 Each 09/18/2025 4:40 PM CST5Active blood sugar diagnostic strip Indications:Type 2 diabetes mellitus without complication, without long-term current use of insulin (HC)Dispense item covered by pt ins. E11.65 IDDM type II, uncontrolled - Test 2 times/day. 100 Each 09/18/2025 4:40 PM CST5Active isosorbide mononitrate (IMDUR) 60 mg extended release tablet 24 hour Indications:NSTEMI (non-ST elevated myocardial infarction) (HC)Take 1 Tablet (60 mg) by mouth once daily. 90 Tablet 4:40 PM CST5Active losartan (COZAAR) 25 mg tablet Indications:NSTEMI (non-ST elevated myocardial infarction) (HC),HTN (hypertension)Take 1 Tablet (25 mg) by mouth once daily in the morning AND ONE- HALF tablet (12.5 mg) once daily in the afternoon. 45 Tablet 4:40 PM CST5Active nitroglycerin 0.4 mg sublingual tablet Indications:NSTEMI (non-ST elevated myocardial infarction) (HC)Place 1 Tablet (0.4 mg) under the tongue every 5 minutes if needed for Chest pain 1st choice. Up to3 tablets in 15 minutes. 25 Tablet 9:41 AM CST5Active metoprolol succinate (TOPROL XL) 50 mg sustained-release tablet Indications:NSTEMI (non-ST elevated myocardial infarction) (HC),HTN (hypertension)Take 1.5 Tablets (75 mg) by mouth two times daily. 90 Tablet 11:50 AM CST5Active aspirin chewable 81 mg tablet Chew 1 Tablet (81 mg) by mouth once daily with a meal. 90 Tablet 1:11 PM CST5Active rosuvastatin (CRESTOR) 40 mg tablet Take 1 Tablet (40 mg) by mouth at bedtime. 90 Tablet 09/19/2025 1:11 PM CST5Active manager product (Dexcom G7 Art Gilder) for continuous blood glucose monitor (CGM) Indications:Type 2 diabetes mellitus with other circulatory complication, with long-term current use of insulin(HC)This is for the glucose SR TECHNICAL SALES CONSULTANT , also order the sensors. 1 Each 09/20/2025tive sensor (Dexcom G7 Sensor) for continuous blood glucose monitor (CGM) Indications:Type 2 diabetes mellitus with other circulatory complication, with long-term current use of insulin(HC)To be used to read blood sugars, change sensor every 10 days. This is for the glucose SENSOR, also order the manager product. 9 Each tive insulin glargine (U-100) (Lantus Solostar U-100 Insulin) 100 unit/mL (3 mL) pen Indications:Type 2 diabetes mellitus without complication, without long-term current use of insulin (HC)Inject 29 units subcutaneous once daily in the morning. Pt to increase by 3 units every 3 days for fasting blood sugar >130. Product desired: BASAGLAR KWIKPEN 9 mL 5Active ibuprofen (ADVIL; MOTRIN) 200 mg tablet Take 600 mg by mouth every 6 hours if needed for Pain.09/19/2025Discontinued(*IP Discontinued) methylPREDNISolone (Medrol, Patricio,) 4 mg tablet Indications:Acute left-sided low back pain with left-sided sciatica,Injury of low back, initial encounter,Fall, initial encounterTake by mouth as instructed per packaging. 21 Tablet /01/2025Discontinued(Pharmacist change per medication history (E- cancel not sent)) tiZANidine (ZANAFLEX) 4 mg tablet Indications:Acute left-sided low back pain with left-sided sciatica,Injury of low back, initial encounter,Fall, initial encounterTake 1 Tablet (4 mg) by mouth every 8 hours if needed for Muscle Spasm. 20 Tablet Discontinued(Pharmacist change per medication history (E- cancel not sent)) LORazepam (ATIVAN) 0.5 mg tab TAKE ONE TABLET BY MOUTH DAILY NEEDED FOR [id number] Discontinued(Pharmacist change per medication history (E-cancel not sent)) aspirin chewable 81 mg tablet Indications:NSTEMI (non-ST elevated myocardial infarction) (HC)Chew 1 Tablet (81 mg) by mouth once daily with a meal. 90 Tablet 2:38 PM CSTDiscontinued(Duplicate therapy (E- cancel not sent)) metoprolol tartrate (LOPRESSOR) 25 mg tablet Indications:NSTEMI (non-ST elevated myocardial infarction) (HC)Take ONE-HALF Tablet (12.5 mg) by mouth two times daily. 180 Tablet 2:38 PM CSTDiscontinued(*IP Discontinued) losartan (COZAAR) 25 mg tablet Indications:NSTEMI (non-ST elevated myocardial infarction) (HC),HTN (hypertension)Take one tablet (25 mg) by mouth once daily AND one-half tablet (12.5 mg) once daily in the afternoon. 45 Tablet Discontinued metoprolol succinate (TOPROL XL) 50 mg sustained-release tablet Indications:NSTEMI (non-ST elevated myocardial infarction) (HC),HTN (hypertension)Take one AND one-half tablets (75 mg) by mouth once daily. Cut in half on the scored line. 45 Tablet Discontinued insulin glargine (U-100) (Lantus Solostar U-100 Insulin) 100 unit/mL (3 mL) pen Indications:Type 2 diabetes mellitus without complication, without long-term current use of insulin (HC)Inject 20 units subcutaneous once daily in the morning. Product desired: BASAGLAR KWIKPEN 6 mL 09/18/2025 4:40 PM CSTDiscontinued insulin glargine (U-100) (Lantus Solostar U-100 Insulin) 100 unit/mL (3 mL) pen Indications:Type 2 diabetes mellitus without complication, without long-term current use of insulin (HC)Inject 24 units subcutaneous once daily in the morning. Product desired: BASAGLAR TOIIKPEN 6 mL Discontinued(Reorder (E-cancel not sent))Hospital, Clinic, or Other Facility Administered MedicationOrdered DoseRouteFrequencyStart DateEnd DateStatus cefTRIAXone (ROCEPHIN) intramuscular injection 2,000 mg Indications:dental yzehevw8490 mgIMONE TIMEDiscontinued cefTRIAXone 1 g INTRAMUSCULAR injection 1 g Indications:dental abscess1 gIMONE TIMEEnded Active Problems ProblemNoted DateDiagnosed DateType 2 diabetes ulzcponk20/12/2025 Overview (09/20/2025): The patient's history included gestational diabetes antepartum, which she mentioned began with one of her four children. She was recently started on Ozempic for diabetes management as of 08/12/2024. She had no prior cardiac history but had strong risk factors including diabetes, hypertension, hyperl ipidemia, and previous chest radiation for breast cancer. 09/13/25: A1c 13.2 % 09/18/25: Cr 0.45 mg/dL On meds: insulin glargine, metformin, semaglutide (external) Recent encounter dx: 09/12/25: Admission - [facility], H5226, H5226 / 01 Bicuspid aortic valve09/20/2025Spontaneous dissection of coronary artery 09/20/2025History of breast cancer s/p bilateral mastectomy, chemo, radiation 09/20/2025Stenosis of left carotid afizjd5909/20/2025NSTEMI (non-ST elevated myocardial infarction)5Calculus of yqamoj9407/13/2007 Overview (07/13/2007): on CT right kidney Abnormal maternal glucose tolerance, nqqjcrlumm86/04/2007 Encounters DateTypeDepartmentCare CqwfYyazrrowzbn43/19/2025 8:35 AM CSTOffice Visit [facility] [address] [place] [address] Zeynep Dominguez MD Follow Up09/27/2025Telephone [facility] [place] [address] [place] [address] Vin Cheek MD Raofmsoz91/19/3865Gabzff28/18/2025Results Follow-Up [facility] [address] [place] [address] Zeynep Dominguez MD Kpsuuwj0809/26/2025Orders Only [facility] [address] [place] [address] Zeynep Dominguez MD 1 scan: (1-Ord) [facility], [facility], Medical Messaging [facility] [address] [place] [address] Zeynep Dominguez MD Next steps for possible recurrence of breast iiyvve1709/23/2025Patient Outreach [facility] [address] [place] [address] Abi Mccollum, RN Primary RN Care Management; Hospital F/U ([facility] 57)09/23/2025Results Follow-Up [facility] [address] [place] [address] Zeynep Dominguez MD 09/20/2025 1:00 PM CSTOffice Visit [facility] [address] [place] [address] Zeynep Dominguez MD Medication Management (Questions on insulin dosing 20 vs 24 units /Metformin with insulin?); Hospital F/11/21/20242594Jhfrvv90/04/2025 8:23 PM ALUMINUM FABRICATION SUPERVISOR - 09/19/2025 1:20 PM CSTHospital Encounter [facility] [address] [place] [address] [facility] [place] Corbin MD NSTEMI (non-ST elevated myocardial infarction) (HC) (Primary Dx); Cardiovascular symptoms; Hyperlipidemia, unspecified hyperlipidemia type; Type 2 diabetes mellitus without complication, without long-term current use of insulin (HC); HTN (hypertension) Discharge Disposition: Home Self Care09/12/2025Telephone [address] [address] Gerald Palma MD from Last 3 Months Social History Tobacco UseTypesPacks/DayYears UsedDateSmoking Tobacco: NeverSmokeless Tobacco: Never Tobacco Cessation:Counseling Given: Not Answered Alcohol UseStandard Drinks/WeekCommentsYes0 (1 standard drink = 0.6 oz pure alcohol)1 drink per monthSocial ConnectionsAnswerDate RecordedDo you often feel lonely or isolated from those around you?lcohol UseAnswerDate RecordedHow often do you have a drink containing alcohol?How many drinks containing alcohol do you have on a typical day when you are drinking?0 09/27/2025How often do you have five or more drinks on one occasion? Financial Resource StrainAnswerDate RecordedDifficulty of Paying Living Expenses Difficulty of Paying Living ExpensesNot on file09/20/2025Food InsecurityAnswerDate RecordedDo you worry your food will run out before you are able to buy more?Transportation NeedsAnswerDate RecordedDoes lack of transportation keep you from medical appointments?Does lack of transportation keep you from work, meetings or getting things that you need?1 09/20/2025Housing StabilityAnswerDate RecordedWhat is your housing situation today?UtilitiesAnswerDate RecordedDo you have trouble paying for utilities (for example, heat, electricity, water, phone)? CommentsNoSex and Gender InformationValueDate RecordedSex Assigned at BirthNot on fileLegal AgyCskbir16/14/2013 6:40 AM CSTGender IdentityNot on fileSexual OrientationNot on file Last Filed Vital Signs Vital SignReadingTime TakenCommentsBlood Fpddzawk295/9209/27/2025 8:35 AM ALUMINUM FABRICATION SUPERVISOR Bzviw737109/27/2025 8:35 AM QLGBylilpdupub47.7 ??C (98 ??F)09/19/2025 8:45 AM ALUMINUM FABRICATION SUPERVISOR Respiratory Etmo431811/20/2024 8:45 AM CSTOxygen Jodbvggpxo44%09/27/2025 8:35 AM CSTInhaled Oxygen Concentration--Prfujj16.2 kg (139 lb 6 oz)09/27/2025 8:35 AM SOKXijkdc109.6 cm (5' 4)09/16/2025 8:00 AM CSTBody Mass Index23.9209/16/2025 8:00 AM ALUMINUM FABRICATION SUPERVISOR Plan of Treatment DateTypeDepartmentCare Team (Latest Contact Info)Offejgvlepy00/02/2026 1:50 PM CSTOffice Visit [facility] [address] [place] [address] Zeynep Dominguez MD [address] [place] [address] 11/01/2025 8:00 AM CSTOffice Visit [facility] [address] [facility] [address] [place] [address] Vin Cheek MD [address] [facility] [address] [place] [address] Health MaintenanceDue DateLast DoneCommentsTetanus kjthyse8611/16/1983Depression screening for age 12+1984HIV for age 15-BMI (ht and wt on same day) for age 18+1990Hepatitis C screening for age 18-Hepatitis B series for 19+ (1 of 3 - 19+ 3-dose series)1991Pneumococcal series for age 50+ (1 of 2 - PCV)1991Pap test for age 21-Colonoscopy through age 75011/16/2017Mammogram for age 45-750, 07/10/2007 RSV vaccine for adults or (1 - Risk 50-74 years 1-dose series) 2022Zoster (shingles) series for age 50+ (1 of 2)2022OVID-19 vaccine series (1 - 2024- season)2025Influenza Vaccine (#1)2025 Lipids for age 45-75 Procedures Procedure NamePriorityDate/TimeAssociated DiagnosisCommentsUS CHESTASAP 09/25/2025 12:00 AM ALUMINUM FABRICATION SUPERVISOR Chest wall mass History of breast cancer BASIC METABOLIC XOURWPwzfvfr29/12/2025 1:48 PM ALUMINUM FABRICATION SUPERVISOR Type 2 diabetes mellitus with other circulatory complication, with long-term current use of insulin(HC) GLUCOSE VTJYNNloyn93/11/2025 7:49 AM ALUMINUM FABRICATION SUPERVISOR MAGNESIUMEarly AM09/19/2025 6:07 AM ALUMINUM FABRICATION SUPERVISOR POTASSIUMEarly AM09/19/2025 6:07 AM ALUMINUM FABRICATION SUPERVISOR SCAN-CARDIAC STRIP09/19/2025 4:24 AM CSTGLUCOSE AYARYBaevy77/10/2025 9:02 PM ALUMINUM FABRICATION SUPERVISOR SCAN-CARDIAC STRIP09/18/2025 7:57 PM CSTSCAN-CARDIAC STRIP09/18/2025 5:14 PM ALUMINUM FABRICATION SUPERVISOR GLUCOSE NWXMHMsvej12/10/2025 5:04 PM ALUMINUM FABRICATION SUPERVISOR GLUCOSE RYELYLamix68/10/2025 11:32 AM ALUMINUM FABRICATION SUPERVISOR XBZIMGRYAYKDP09/10/2025 9:50 AM ALUMINUM FABRICATION SUPERVISOR BASIC METABOLIC SLCBRAklte79/10/2025 9:50 AM ALUMINUM FABRICATION SUPERVISOR TROPONIN T (HS) ONE QYGKPiyrb08/10/2025 9:50 AM ALUMINUM FABRICATION SUPERVISOR GLUCOSE YQTLJLztgb77/10/2025 7:44 AM ALUMINUM FABRICATION SUPERVISOR SCAN-CARDIAC STRIP09/18/2025 7:39 AM CSTSCAN-CARDIAC STRIP09/18/2025 3:35 AM ALUMINUM FABRICATION SUPERVISOR GLUCOSE TFGHVTucpa89/09/2025 10:48 PM ALUMINUM FABRICATION SUPERVISOR GLUCOSE TPWNNSojbs47/09/2025 5:10 PM ALUMINUM FABRICATION SUPERVISOR SCAN-CARDIAC STRIP09/17/2025 3:24 PM CSTSCAN-CARDIAC STRIP09/17/2025 1:51 PM ALUMINUM FABRICATION SUPERVISOR GLUCOSE WQEWDCosof85/09/2025 11:55 AM ALUMINUM FABRICATION SUPERVISOR GLUCOSE MTEJXViohj00/09/2025 7:37 AM ALUMINUM FABRICATION SUPERVISOR SCAN-CARDIAC STRIP09/17/2025 4:48 AM CSTGLUCOSE CSHDJXlfyc78/08/2025 10:56 PM ALUMINUM FABRICATION SUPERVISOR SCAN-CARDIAC STRIP09/16/2025 8:16 PM CSTGLUCOSE MPVKYSrnsn82/08/2025 6:37 PM ALUMINUM FABRICATION SUPERVISOR GLUCOSE WUSIJCzsea84/08/2025 5:23 PM ALUMINUM FABRICATION SUPERVISOR GLUCOSE EQVEFQfbtu19/08/2025 3:04 PM ALUMINUM FABRICATION SUPERVISOR SCAN CORRESP-EKG LZYDXPB8909/16/2025 12:28 PM ALUMINUM FABRICATION SUPERVISOR SCAN CORRESP-EKG NTTYKJQ8509/16/2025 12:26 PM ALUMINUM FABRICATION SUPERVISOR SCAN CORRESP-LABORATORY ZHBSQDZ8509/16/2025 12:26 PM ALUMINUM FABRICATION SUPERVISOR EKG 12 JOCCZokkfso28/08/2025 11:48 AM ALUMINUM FABRICATION SUPERVISOR FMALCRITGTkdum39/05/2025 10:53 AM ALUMINUM FABRICATION SUPERVISOR GLUCOSE QHKUGAgrvp91/08/2025 9:48 AM ALUMINUM FABRICATION SUPERVISOR CTA CHEST ABDOMEN PELVIS - RAD DUAL PTLVRvausvs73/08/2025 9:20 AM ALUMINUM FABRICATION SUPERVISOR CTA CHEST ABDOMEN PELVIS - CV DUAL AMVIHdpgasb10/08/2025 9:[address]UMINUM FABRICATION SUPERVISOR CT ANGIO HEAD AND NECK UJSDLMLKnksseg56/08/2025 9:20 AM ALUMINUM FABRICATION SUPERVISOR GLUCOSE GJNPLPmxyi55/08/2025 7:50 AM ALUMINUM FABRICATION SUPERVISOR TROPONIN T (HS) ONE EXBPVPBW75/08/2025 7:41 AM ALUMINUM FABRICATION SUPERVISOR POTASSIUMEarly AM09/16/2025 7:41 AM ALUMINUM FABRICATION SUPERVISOR MAGNESIUMEarly AM09/16/2025 7:41 AM ALUMINUM FABRICATION SUPERVISOR PLATELET COUNTEarly AM09/16/2025 7:41 AM ALUMINUM FABRICATION SUPERVISOR HEMOGLOBINEarly AM09/16/2025 7:41 AM ALUMINUM FABRICATION SUPERVISOR SCAN-CARDIAC STRIP09/15/2025 10:01 PM CSTGLUCOSE UQSUITimah19/07/2025 9:22 PM ALUMINUM FABRICATION SUPERVISOR GLUCOSE QKIIYScdmj35/07/2025 5:04 PM ALUMINUM FABRICATION SUPERVISOR SCAN-CARDIAC STRIP09/15/2025 4:51 PM CSTGLUCOSE LWGSGEgmky25/07/2025 2:03 PM ALUMINUM FABRICATION SUPERVISOR EKG 12 IVDBAHIO00/07/2025 10:25 AM ALUMINUM FABRICATION SUPERVISOR SCAN-CARDIAC STRIP09/15/2025 9:38 AM CSTGLUCOSE YEREHDpbqv49/07/2025 7:47 AM ALUMINUM FABRICATION SUPERVISOR POTASSIUMEarly AM09/15/2025 6:19 AM ALUMINUM FABRICATION SUPERVISOR MAGNESIUMEarly AM09/15/2025 6:19 AM ALUMINUM FABRICATION SUPERVISOR CREATININEEarly AM09/15/2025 6:19 AM ALUMINUM FABRICATION SUPERVISOR PLATELET COUNTEarly AM09/15/2025 6:19 AM ALUMINUM FABRICATION SUPERVISOR HEMOGLOBINEarly AM09/15/2025 6:19 AM ALUMINUM FABRICATION SUPERVISOR SCAN-CARDIAC STRIP09/15/2025 12:49 AM CSTGLUCOSE QULHQHqyii90/06/2025 9:17 PM ALUMINUM FABRICATION SUPERVISOR GLUCOSE WZAPJBedpl68/06/2025 4:55 PM ALUMINUM FABRICATION SUPERVISOR SCAN-CARDIAC STRIP09/14/2025 3:29 PM CSTGLUCOSE MMPNJNdyfc51/06/2025 12:17 PM ALUMINUM FABRICATION SUPERVISOR GLUCOSE AFGYOQgydh89/06/2025 7:44 AM ALUMINUM FABRICATION SUPERVISOR SCAN-CARDIAC STRIP09/14/2025 7:19 AM CSTPOTASSIUMEarly AM09/14/2025 7:07 AM ALUMINUM FABRICATION SUPERVISOR MAGNESIUMEarly AM09/14/2025 7:07 AM ALUMINUM FABRICATION SUPERVISOR CREATININEEarly AM09/14/2025 7:07 AM ALUMINUM FABRICATION SUPERVISOR PLATELET COUNTEarly AM09/14/2025 7:07 AM ALUMINUM FABRICATION SUPERVISOR HEMOGLOBINEarly AM09/14/2025 7:07 AM ALUMINUM FABRICATION SUPERVISOR SCAN-CARDIAC STRIP09/13/2025 10:12 PM CSTGLUCOSE EUUWKXmyvv12/05/2025 9:22 PM ALUMINUM FABRICATION SUPERVISOR HCHG ACTIVATED CLOTTING TM TDWzvjh0409/13/2025 6:18 PM ALUMINUM FABRICATION SUPERVISOR CVL CORONARY ANGIOGRAM POSS EEDSiaigyk61/05/2025 6:12 PM ALUMINUM FABRICATION SUPERVISOR Cardiovascular symptoms GLUCOSE LGPPYSmkqz79/05/2025 5:07 PM ALUMINUM FABRICATION SUPERVISOR EXTRA TUBE VUXSAMMAVjipk34/05/2025 5:03 PM HGIQLOFLoqwb63/05/2025 4:55 PM ALUMINUM FABRICATION SUPERVISOR EKG 12 OEHSMKKJ55/05/2025 3:51 PM ALUMINUM FABRICATION SUPERVISOR GLUCOSE ULYCJUzgvk25/05/2025 11:51 AM ALUMINUM FABRICATION SUPERVISOR EKG 12 SLGDBEAW21/05/2025 10:33 AM ALUMINUM FABRICATION SUPERVISOR FKSQFBUVJCLJH99/05/2025 9:06 AM ALUMINUM FABRICATION SUPERVISOR QPNLXQKSMHKAE55/05/2025 9:06 AM ALUMINUM FABRICATION SUPERVISOR APTTEarly AM09/13/2025 9:06 AM ALUMINUM FABRICATION SUPERVISOR LIPOPROTEIN AEarly AM09/13/2025 9:06 AM ALUMINUM FABRICATION SUPERVISOR LIPID PANELEarly AM09/13/2025 9:06 AM ALUMINUM FABRICATION SUPERVISOR HEMOGLOBIN D7QWtzqd AM09/13/2025 9:06 AM ALUMINUM FABRICATION SUPERVISOR CREATININEEarly AM09/13/2025 9:06 AM ALUMINUM FABRICATION SUPERVISOR PLATELET COUNTEarly AM09/13/2025 9:06 AM ALUMINUM FABRICATION SUPERVISOR HEMOGLOBINEarly AM09/13/2025 9:06 AM ALUMINUM FABRICATION SUPERVISOR SCAN-CARDIAC STRIP09/13/2025 8:58 AM CSTSCAN-CARDIAC STRIP09/13/2025 8:58 AM ALUMINUM FABRICATION SUPERVISOR ECHO TTE COMPLETE WO ZJAFUPATRizdtyc32/05/2025 8:33 AM ALUMINUM FABRICATION SUPERVISOR GLUCOSE YLUHFKunew24/05/2025 7:47 AM ALUMINUM FABRICATION SUPERVISOR SCAN-CARDIAC STRIP09/13/2025 3:49 AM WUEOAVDEjsba43/04/2025 11:48 PM ALUMINUM FABRICATION SUPERVISOR SCAN-CARDIAC STRIP09/12/2025 10:21 PM CSTEKG 12 TOYEYSWX27/04/2025 10:15 PM ALUMINUM FABRICATION SUPERVISOR GLUCOSE AWLYWPynlr71/04/2025 9:49 PM ALUMINUM FABRICATION SUPERVISOR EKG 12 DIYWYKXV75/04/2025 9:36 PM ALUMINUM FABRICATION SUPERVISOR NDWJJtdih91/04/2025 9:31 PM ALUMINUM FABRICATION SUPERVISOR TROPONIN T (HS) ONE EVKSYRCB18/04/2025 9:31 PM ALUMINUM FABRICATION SUPERVISOR BASIC METABOLIC UWFJHOQDP64/04/2025 9:31 PM ALUMINUM FABRICATION SUPERVISOR CBC W PLT NO LKLXOOWC35/04/2025 9:31 PM ALUMINUM FABRICATION SUPERVISOR PROTIME-PJNWEYY57/04/2025 9:31 PM ALUMINUM FABRICATION SUPERVISOR SCAN-MAMMOGRAPHY PXZAIB0307/10/2007 12:00 AM CDT from Last 3 Months or Most Recently Relevant to Health Maintenance Results * US CHEST (09/25/2025 12:00 AM ALUMINUM FABRICATION SUPERVISOR)Anatomical RegionLateralityModalityCHEST, THORAX, Lung, HEARTN/AUltrasound Narrative Authorizing ProviderResult TypeResult StatusKatherlarry Dominguez MDUSFinal Result * (ABNORMAL) BASIC METABOLIC PANEL (09/20/2025 1:48 PM ALUMINUM FABRICATION SUPERVISOR) Only the most recent of3 resultswithin the time period is included. ComponentValueRef RangeTest MethodAnalysis TimePerformed AtPathologist Signature RDCAIG864173 - 146 mmol/L111/22/2024 4:38 AM CSTQUEST DIAGNOSTICSPOTASSIUM5.33.5 - 5.3 mmol/L111/22/2024 4:38 AM CSTQUEST DIAGNOSTICSCARBON WOORQIE6659 - 32 mmol/L111/22/2024 4:38 AM CSTQUEST AAHPBDCJXNUSQKVVZD384(H)65 - 99 mg/dL 09/21/2025 4:38 AM CSTQUEST DIAGNOSTICSComment: ? Fasting reference interval For someone without known diabetes, a glucose value >125 mg/dL indicates that they may have diabetes and this should be confirmed with a follow-up test. CALCIUM9.88.6 - 10.4 mg/dL09/21/2025 4:38 AM CSTQUEST DIAGNOSTICSCREATININE0.55 0.50 - 1.03 mg/dL09/21/2025 4:38 AM CSTQUEST DIAGNOSTICSBUN/CREATININE RATIOSEE NOTE:6 (calc)09/21/2025 4:38 AM CSTQUEST DIAGNOSTICSComment: ?? Not Reported: BUN and Creatinine are within ?? reference range. ? OODR233> OR = 60 mL/min/1.45c75309/21/2025 4:38 AM CSTQUEST DIAGNOSTICSUREA NITROGEN (BUN)157 - 25 mg/dL09/21/2025 4:38 AM CSTQUEST DIAGNOSTICSELECTROLYTE GULXGDZ38 - 17 mmol/L (calc)09/21/2025 4:38 AM CSTQUEST YIQRGXDJKPXNBOKQPFW23061 - 110 mmol/L111/22/2024 4:38 AM CSTQUEST DIAGNOSTICSSpecimen (Source)Anatomical Location / LateralityCollection Method / VolumeCollection TimeReceived TimeBlood BLOOD SPECIMEN / UnknownQuest Collect / Agdfche7409/20/2025 1:48 PM CST09/20/2025 1:48 PM ALUMINUM FABRICATION SUPERVISOR Narrative Authorizing ProviderResult TypeResult StatusKatherine Lupis Dominguez MD CHEMISTRYFinal ResultPerforming OrganizationAddressCity/State/ZIP CodePhone Number [facility] [address] [phone], * (ABNORMAL) GLUCOSE METER (09/19/2025 7:49 AM ALUMINUM FABRICATION SUPERVISOR) Only the most recent of28 resultswithin the time period is included. ComponentValueRef RangeTest MethodAnalysis TimePerformed AtPathologist Signature GLUCOSE APACQ873(H)65 - 100 mg/dL09/19/2025 7:51 AM CSTBOLIVAR MEDICAL CENTER- CENTRAL LABORATORYSpecimen (Source)Anatomical Location / LateralityCollection Method / VolumeCollection TimeReceived TimeBloodBLOOD SPECIMEN / Unknown 09/19/2025 7:49 AM CST09/19/2025 7:51 AM ALUMINUM FABRICATION SUPERVISOR Narrative Authorizing ProviderResult TypeResult StatusCraig Nash[place] Bowron MDCHEMISTRYFinal ResultPerforming OrganizationAddressCity/State/ZIP CodePhone Number [facility] [address] [place] [address], * POTASSIUM (09/19/2025 6:07 AM ALUMINUM FABRICATION SUPERVISOR) Only the most recent of6 resultswithin the time period is included. ComponentValueRef RangeTest MethodAnalysis TimePerformed AtPathologist Signature POTASSIUM3.63.5 - 5.1 mmol/L111/20/2024 7:04 AM CSTCONERLY CR[facility]ARE [facility] CENTRAL LABORATORYSpecimen (Source)Anatomical Location / LateralityCollection Method / VolumeCollection TimeReceived TimeBloodBLOOD SPECIMEN / Unknown Butterfly / Ivqitin4809/19/2025 6:07 AM CST09/19/2025 6:23 AM ALUMINUM FABRICATION SUPERVISOR Narrative Authorizing ProviderResult TypeResult StatusCraig Yaakov Bowron MDCHEMISTRYFinal ResultPerforming OrganizationAddressty/State/ZIP CodePhone Number [facility] [address] [place] [address], [place] * MAGNESIUM (09/19/2025 6:07 AM ALUMINUM FABRICATION SUPERVISOR) Only the most recent of6 resultswithin the time period is included. ComponentValueRef RangeTest MethodAnalysis TimePerformed AtPathologist Signature MAGNESIUM1.91.6 - 2.6 mg/dL09/19/2025 7:04 AM CSTCONERLY CR[facility]ICAL [facility]ARE [facility]OSPITAL CENTRAL LABORATORYSpecimen (Source)Anatomical Location / LateralityCollection Method / VolumeCollection TimeReceived TimeBloodBLOOD SPECIMEN / Unknown Butterfly / Tjbxzac3009/19/2025 6:07 AM CST09/19/2025 6:23 AM ALUMINUM FABRICATION SUPERVISOR Narrative Authorizing ProviderResult TypeResult StatusCraig Nashua Bowron MDCHEMISTRYFinal ResultPerforming OrganizationAddressty/State/ZIP CodePhone Number [facility] [address] [address], * SCAN-CARDIAC STRIP (09/19/2025 4:24 AM ALUMINUM FABRICATION SUPERVISOR) Narrative Authorizing ProviderResult TypeResult StatusScannerOTHERFinal Result * SCAN-CARDIAC STRIP (09/18/2025 7:57 PM ALUMINUM FABRICATION SUPERVISOR) Narrative Authorizing ProviderResult TypeResult StatusScannerOTHERFinal Result * SCAN-CARDIAC STRIP (09/18/2025 5:14 PM ALUMINUM FABRICATION SUPERVISOR) Narrative Authorizing ProviderResult TypeResult StatusScannerOTHERFinal Result * (ABNORMAL) TROPONIN T (HS) ONE TIME (09/18/2025 9:50 AM ALUMINUM FABRICATION SUPERVISOR) Only the most recent of3 resultswithin the time period is included. ComponentValueRef RangeTest MethodAnalysis TimePerformed AtPathologist Signature TROPONIN T HS311(H)6-10 ng/L ng/L111/19/2024 10:52 AM [facility]ST[facility] LABORATORYSpecimen (Source)Anatomical Location / Laterality Collection Method / VolumeCollection TimeReceived TimeBloodBLOOD SPECIMEN / UnknownButterfly / Afzbbcz5309/18/2025 9:50 AM CST09/18/2025 10:17 AM ALUMINUM FABRICATION SUPERVISOR Narrative [facility] - 09/18/2025 10:52 AM ALUMINUM FABRICATION SUPERVISOR hs-cTnT (Elecsys Troponin T Gen 5) concentration (s) above the sex-specific 99th percentile (16 ng/L or greater for males or 11 ng/L or greater for females) are indicative of myocardial injury. If initial hs-cTnT <=100 ng/L at presentation, a 0h/2h ABSOLUTE (ng/L) delta change (rising or falling) of >=10 ng/L suggests a significant change, whereas a 0h/2h delta change <=3 ng/L suggests no significant change. If initial hs-cTnT >100 ng/L at presentation, a 0h/2h/ RELATIVE (percent, %) delta change of 20%is suggested to distinguish patients with acute vs. chronic myocardial injury. There are multiple etiologies that can cause hs-cTnT increases above the 99th percentile (myocardial injury) other than acute myocardial infarction. Clinical context and careful clinical evaluation are critical for diagnosis and risk- stratification. The diagnosis of acute myocardial infarction requires a rising and/or falling pattern in hs-cTnT concentrations with at least one value above the sex-specific 99th percentile PLUS at least one of the following clinical criteria: ischemic symptoms, new or presumed new significant ST-T wave changes or new LBBB, development of pathological Q waves, imaging evidence of new loss of viable myocardium or new regional wall motion abnormality, or identification of intracoronary atherothrombosis or an acute angiographic culprit on coronary angiography. In appropriate low-risk patients with a non-ischemic electrocardiogram without active chest pain with a symptom onset >3-hours without recurrence, a single initial hs-cTnT<6 ng/L identifies patient with a very low risk in emergency department patient population. Authorizing ProviderResult TypeResult StatusTasha Soto NPCHEMISTRYFinal ResultPerforming OrganizationAddressCity/State/ZIP CodePhone Number [facility] [address] [place] [address], * SCAN-CARDIAC STRIP (09/18/2025 7:39 AM ALUMINUM FABRICATION SUPERVISOR) Narrative Authorizing ProviderResult TypeResult StatusScannerOTHERFinal Result * SCAN-CARDIAC STRIP (09/18/2025 3:35 AM ALUMINUM FABRICATION SUPERVISOR) Narrative Authorizing ProviderResult TypeResult StatusScannerOTHERFinal Result * SCAN-CARDIAC STRIP (09/17/2025 3:24 PM ALUMINUM FABRICATION SUPERVISOR) Narrative Authorizing ProviderResult TypeResult StatusScannerOTHERFinal Result * SCAN-CARDIAC STRIP (09/17/2025 1:51 PM ALUMINUM FABRICATION SUPERVISOR) Narrative Authorizing ProviderResult TypeResult StatusScannerOTHERFinal Result * SCAN-CARDIAC STRIP (09/17/2025 4:48 AM ALUMINUM FABRICATION SUPERVISOR) Narrative Authorizing ProviderResult TypeResult StatusScannerOTHERFinal Result * SCAN-CARDIAC STRIP (09/16/2025 8:16 PM ALUMINUM FABRICATION SUPERVISOR) Narrative Authorizing ProviderResult TypeResult StatusScannerOTHERFinal Result * SCAN CORRESP-EKG RESULTS (09/16/2025 12:28 PM ALUMINUM FABRICATION SUPERVISOR) Only the most recent of2 resultswithin the time period is included. Narrative 09/16/2025 12:28 PM ALUMINUM FABRICATION SUPERVISOR Ordered by an unspecified provider. Authorizing ProviderResult TypeResult StatusOther Clinical StaffOTHERFinal Result * SCAN CORRESP-LABORATORY RESULTS (09/16/2025 12:26 PM ALUMINUM FABRICATION SUPERVISOR) Narrative 09/16/2025 12:26 PM ALUMINUM FABRICATION SUPERVISOR Ordered by an unspecified provider. Authorizing ProviderResult TypeResult StatusOther Clinical StaffOTHERFinal Result * EKG 12 LEAD (09/16/2025 11:48 AM ALUMINUM FABRICATION SUPERVISOR) Only the most recent of6 resultswithin the time period is included. ComponentValueRef RangeTest MethodAnalysis TimePerformed AtPathologist Signature InterpretationNormal sinus rhythm Left axis deviation Inferior infarct (cited on or before 12-Sep-2025) Abnormal ECG When compared with ECG of 15-Sep-2025 10:25, No significant change was found BEYOND NOWVentricular Thzu42UOSMACQWW NOWAtrial Pczj71KRYYPIXZI NOWP-R Interval 160msBEYOND NOWQRS Cbaqaone60iaKFUSBJ VKGXZ875alANFBBG IWAOAa758pbKVWJIJ NOWP Qwgj80ttlcivwFZHKLC NOWR Irving-49degreesBEYOND NOWT Fvgp614shkecajNPKKIF NOW Specimen (Source)Anatomical Location / LateralityCollection Method / Volume Collection TimeReceived Time09/16/2025 11:48 AM CST09/16/2025 4:47 PM ALUMINUM FABRICATION SUPERVISOR Narrative Authorizing ProviderResult TypeResult StatusNatdanuta Soto NPEKG ORDFinal ResultPerforming OrganizationAddressCity/State/ZIP CodePhone Number [facility] [place], [place] * CTA CHEST ABDOMEN PELVIS - CV DUAL READ (09/16/2025 9:20 AM ALUMINUM FABRICATION SUPERVISOR)Anatomical RegionLateralityModalityAbdomen, CHESTComputed TomographySpecimen (Source) Anatomical Location / LateralityCollection Method / VolumeCollection Time Received Time Narrative 09/16/2025 10:50 AM ALUMINUM FABRICATION SUPERVISOR STUDY: CHEST, ABDOMEN, AND PELVIS AORTIC CT ANGIOGRAPHY Study date: 09/16/2025 Indication: 54 year-old female with suspected FMD has been referred for evaluation of thoracic and abdominal aorta morphology. STUDY PARAMETERS: Scanner: Siemens Definition Force Contrast: 135 ml of Omnipaque 350 Scan protocol: Nongated helical for arterial phase. Radiation dose length product: 935 mGy centimeter FINAL IMPRESSIONS: Normal thoracic aorta size and morphology Normal abdominal aorta size and morphology. No evidence of arterial beading, spontaneous dissection or aneurysms. ??No findings for FMD. Please see separate radiology report for nonvascular findings. FINDINGS: Thoracic aorta: Left-sided arch. No atheromatous disease in the entire thoracic aorta. ??Normal caliber of the aortic root and ascending, arch and descending thoracic aorta. Left atrium: Normal contrast opacification. Pulmonary veins: Normal anatomy. Coronary arteries: No obvious coronary calcification noted. Pericardium: No effusion Great arteries: Normal great artery branching pattern. ??Brachiocephalic artery: Patent. ??Visualized right subclavian artery: Patent. ??Visualized right common carotid artery: Patent. ??Visualized left common carotid artery: Patent. ??Visualized left subclavian artery: Patent. Abdominal aorta: Normal size and morphology. ??No atherosclerosis. Abdominal aorta branch arteries: Celiac artery: Patent. Superior mesenteric artery: Patent. Right renal artery: Patent. Left renal artery: Patent. Inferior mesenteric artery: Patent. Pelvic arteries (RIGHT): Common iliac artery: Patent. Internal iliac artery: Patent. External iliac artery: Patent. Common femoral artery: Patent. Pelvic arteries (LEFT): Common iliac artery: Patent. Internal iliac artery: Patent. External iliac artery: Patent. Common femoral artery: Patent. FOR PATIENT: Results are automatically released to your [employer]) account once available, in compliance with federal regulations. ?? This means that you may see your results before your provider has had a chance to review them. ??Please allow 2-3 business days for your provider to comment on the results. Jessa??ashli Guzman MD, FACC, FSCCT, FSCMR [address], [address] 09/16/2025 Authorizing ProviderResult TypeResult StatusGillian Sandee Griffithoenbauer NPCTFinal Result * CTA CHEST ABDOMEN PELVIS - RAD DUAL READ (09/16/2025 9:20 AM ALUMINUM FABRICATION SUPERVISOR)Anatomical RegionLateralityModalityAbdomen, CHESTComputed TomographySpecimen (Source) Anatomical Location / LateralityCollection Method / VolumeCollection Time Received Time09/16/2025 9:40 AM ALUMINUM FABRICATION SUPERVISOR Impressions 09/16/2025 9:40 AM ALUMINUM FABRICATION SUPERVISOR : 1. See separate cardiology report for cardiac findings. 2. Post bilateral mastectomies and roughly 8.5 x 1.5 cm anterior right chest wall/presternal mass, suspicious for metastatic disease. 3. Suspected constipation. Please note that all CT scans at this facility use dose modulation, iterative reconstruction and/orweight-based dosing when appropriate to reduce radiation dose to as low as reasonably achievable. Please note that all CT scans at this facility use dose modulation, iterative reconstruction, and/or weight-based dosing when appropriate to reduce radiation dose to as low as reasonably achievable. Dictated by Praful Naranjo MD @ 09/16/2025 9:40:57 AM (Electronically Signed) Narrative 09/16/2025 9:40 AM ALUMINUM FABRICATION SUPERVISOR For Patients: As a result of the Cures Act, medical imaging exams and procedure reports are released immediately into your electronic medical record. You may view this report before your referring provider. If you have questions, please contact your health care provider. THIS IS THE RADIOLOGY OVER READ REPORT OF A DUAL READ STUDY. READ THE SEPARATE CARDIOLOGY REPORT FOR CARDIOVASCULAR FINDINGS. REPORTS MAY BE FINALIZED AT DIFFERENT TIMES. : COMPARISON: ??: None TECHNIQUE: ??: Please see cardiology report for technical information. ?? This exam is being performed in conjunction with the services provided by the [facility] ([facility]). INDICATION: Cardiac over-read. ?? FINDINGS: CHEST: Postop changes of bilateral mastectomies are demonstrated. On images 26- 43 of series 6, a roughly 8.5 x 1.5 cm anterior right chest/presternal mass is demonstrated and is suspicious for metastatic disease. There is no obvious associated bone destruction. No axillary, hilar or mediastinal lymphadenopathy is demonstrated. The lungs are clear. No significant airway abnormality is demonstrated. No pleural effusion is noted. ABDOMEN/PELVIS: The liver is normal in size, shape and attenuation. ??No bile duct dilation is evident. The spleen, adrenal glands and pancreas are within normal limits. The kidneys are unremarkable.The bowel for considerable stool in the colon. A small fat-containing umbilical hernia is noted. The uterus is negative. Neither ovary is visualized with certainty. Procedure Note Praful Naranjo MD - 09/16/2025 For Patients: As a result of the Century Cures Act, medical imagingexams and procedure reports are released immediately into your electronicmedical record. You may view this report before your referring provider.If you have questions, please contact your health care provider. THIS IS THE RADIOLOGY OVER READ REPORT OF A DUAL READ STUDY. READ THESEPARATE CARDIOLOGY REPORT FOR CARDIOVASCULAR FINDINGS. REPORTS MAY BEFINALIZED AT DIFFERENT TIMES. : COMPARISON: : None TECHNIQUE: : Please see cardiology report for technical information. This exam is being performed in conjunction with the services provided bythe [facility] ([facility]). INDICATION: Cardiac over-read. FINDINGS: CHEST: Postop changes of bilateral mastectomies are demonstrated. Onimages 26-43 of series 6, a roughly 8.5 x 1.5 cm anterior rightchest/presternal mass is demonstrated and is suspicious for metastaticdisease. There is no obvious associated bone destruction. No axillary,hilar or mediastinal lymphadenopathy is demonstrated. The lungs are clear. No significant airway abnormality is demonstrated. No pleural effusion is noted. ABDOMEN/PELVIS: The liver is normal in size, shape and attenuation. Nobile duct dilation is evident. The spleen, adrenal glands and pancreas arewithin normal limits. The kidneys are unremarkable. The bowel forconsiderable stool in the colon. A small fat-containing umbilical herniais noted. The uterus is negative. Neither ovary is visualized withcertainty. IMPRESSION: : 1. See separate cardiology report for cardiac findings. 2. Post bilateral mastectomies and roughly 8.5 x 1.5 cm anterior rightchest wall/presternal mass, suspicious for metastatic disease. 3. Suspected constipation. Please note that all CT scans at this facility use dose modulation,iterative reconstruction and/or weight-based dosing when appropriate toreduce radiation dose to as low as reasonably achievable. Please note that all CT scans at this facility use dose modulation,iterative reconstruction, and/or weight-based dosing when appropriate toreduce radiation dose to as low as reasonably achievable. Dictated by Praful Naranjo MD @ 09/16/2025 9:40:57 AM (Electronically Signed) Authorizing ProviderResult TypeResult StatusGillian Glass Schoenbauer NPCTFinal Result * CTA HEAD AND NECK CAROTID (09/16/2025 9:20 AM ALUMINUM FABRICATION SUPERVISOR)Anatomical RegionLaterality ModalityBRAIN, NECKComputed TomographySpecimen (Source)Anatomical Location / LateralityCollection Method / VolumeCollection TimeReceived Time09/16/2025 9:29 AM ALUMINUM FABRICATION SUPERVISOR Impressions 09/16/2025 11:53 AM ALUMINUM FABRICATION SUPERVISOR 1. No specific evidence of fibromuscular dysplasia in the neck. 2. Mild (less than 50%) stenosis at the origin of the left internal carotid artery by NASCET criteria. This is caused by non-calcified plaque with a greater than 2mm residual lumen. 3. Patent proximal intracranial vasculature. Please note that all CT scans at this facility use dose modulation, iterative reconstruction, and/or weight-based dosing when appropriate to reduce radiation dose to as low as reasonably achievable. Dictated by Fannie Moore MD @ 09/16/2025 11:53:23 AM (Electronically Signed) Narrative 09/16/2025 11:53 AM ALUMINUM FABRICATION SUPERVISOR For Patients: As a result of the Cures Act, medical imaging exams and procedure reports are released immediately into your electronic medical record. You may view this report before your referring provider. If you have questions, please contact your health care provider. DATE: 09/16/2025 CLINICAL HISTORY: Patient with fibromuscular dysplasia. TECHNIQUE: Standard helical CT image acquisition through the head and neck was performed after intravenous contrast bolus enhancement. 2D and 3D MIP images for post- processing were performed and interpreted on an independent workstation and 3D images were permanently archived. COMPARISON: None. FINDINGS: The origins of the great vessels from the aortic arch are patent. The origin of the right vertebralartery is patent. The origin of the left vertebral artery is patent. The common carotid arteries are patent There is no stenosis at the origin of the right internal carotid artery by NASCET criteria. There is a mild (less than 50%) stenosis at the origin of the left internal carotid artery by NASCET criteria. This is caused by non-calcified plaque with a greater than 2mm residual lumen. The rest of the cervical segments of the internal carotid arteries are patent up to their intracranial segments. The intracranial segments of the internal carotid arteries are patent. The left vertebral artery is dominant. The cervical segments of the vertebral arteries are patent. The intracranial segments of the vertebral arteries are patent. The middle cerebral arteries are normal without aneurysm or proximal occlusion identified. The anterior cerebral arteries are normal without aneurysm or proximal occlusion identified. The anterior communicating artery is well visualized and appears normal. The basilar artery is normal without aneurysm or occlusion. The posterior cerebral arteries are normal without aneurysm or proximal occlusion. There is normal opacification of major intracranial venous structures. The visualized lung apices are unremarkable The thyroid gland is unremarkable. The soft tissues of the neck are unremarkable. There are degenerative changes in the cervical spine. Procedure Note Fannie Moore MD - 09/16/2025 For Patients: As a result of the Cures Act, medical imagingexams and procedure reports are released immediately into your electronicmedical record. You may view this report before your referring provider.If you have questions, please contact your health care provider. DATE: 09/16/2025 CLINICAL HISTORY: Patient with fibromuscular dysplasia. TECHNIQUE: Standard helical CT image acquisition through the head and neck wasperformed after intravenous contrast bolus enhancement. 2D and 3D MIPimages for post- processing were performed and interpreted on anindependent workstation and 3D images were permanently archived. COMPARISON: None. FINDINGS: The origins of the great vessels from the aortic arch are patent. Theorigin of the right vertebral artery is patent. The origin of the leftvertebral artery is patent. The common carotid arteries are patent There is no stenosis at the origin of the right internal carotid artery byNASCET criteria. There is a mild (less than 50%) stenosis at the origin of the leftinternal carotid artery by NASCET criteria. This is caused bynon-calcified plaque with a greater than 2mm residual lumen. The rest of the cervical segments of the internal carotid arteries arepatent up to their intracranial segments. The intracranial segments of theinternal carotid arteries are patent. The left vertebral artery is dominant. The cervical segments of thevertebral arteries are patent. The intracranial segments of the vertebralarteries are patent. The middle cerebral arteries are normal without aneurysm or proximalocclusion identified. The anterior cerebral arteries are normal without aneurysm or proximalocclusion identified. The anterior communicating artery is well visualized and appears normal. The basilar artery is normal without aneurysm or occlusion. The posterior cerebral arteries are normal without aneurysm or proximal occlusion. There is normal opacification of major intracranial venous structures. The visualized lung apices are unremarkable The thyroid gland is unremarkable. The soft tissues of the neck are unremarkable. There are degenerative changes in the cervical spine. IMPRESSION: 1. No specific evidence of fibromuscular dysplasia in the neck. 2. Mild (less than 50%) stenosis at the origin of the left internalcarotid artery by NASCET criteria. This is caused by non-calcified plaquewith a greater than 2mm residual lumen. 3. Patent proximal intracranial vasculature. Please note that all CT scans at this facility use dose modulation,iterative reconstruction, and/or weight-based dosing when appropriate toreduce radiation dose to as low as reasonably achievable. Dictated by Fannie Moore MD @ 09/16/2025 11:53:23 AM (Electronically Signed) Authorizing ProviderResult TypeResult StatusGiandrews Cui NPCTFinal Result * PLATELET COUNT (09/16/2025 7:41 AM ALUMINUM FABRICATION SUPERVISOR) Only the most recent of4 resultswithin the time period is included. ComponentValueRef RangeTest MethodAnalysis TimePerformed AtPathologist Signature PLATELET [id number] - 440 thou/cu mm09/16/2025 7:56 AM [facility] THUCXMZMTFTAU86.06.5 - 11.0 fL09/16/2025 7:56 AM [facility] LABORATORYSpecimen (Source)Anatomical Location / LateralityCollection Method / VolumeCollection TimeReceived TimeBloodBLOOD SPECIMEN / UnknownButterfly / Jrxuahr5709/16/2025 7:41 AM CST09/16/2025 7:47 AM ALUMINUM FABRICATION SUPERVISOR Narrative [facility] - 09/16/2025 7:56 AM ALUMINUM FABRICATION SUPERVISOR Every morning while on IV heparin. Necessary every morning while on IV heparin. Authorizing ProviderResult TypeResult StatusPatel Hdez MDHEMATOLOGY Final ResultPerforming OrganizationAddressCity/State/ZIP CodePhone Number [facility] [address] [place] [address], * HEMOGLOBIN (09/16/2025 7:41 AM ALUMINUM FABRICATION SUPERVISOR) Only the most recent of4 resultswithin the time period is included. ComponentValueRef RangeTest MethodAnalysis TimePerformed AtPathologist Signature WHHNWEYDMY38.912.0 - 16.0 g/dL09/16/2025 7:[address] [facility] [id number] - 100 fL09/16/2025 7:56 AM [facility] LABORATORYSpecimen (Source)Anatomical Location / Laterality Collection Method / VolumeCollection TimeReceived TimeBloodBLOOD SPECIMEN / UnknownButterfly / Aiehziz1409/16/2025 7:41 AM CST09/16/2025 7:47 AM ALUMINUM FABRICATION SUPERVISOR Narrative [facility] - 09/16/2025 7:56 AM ALUMINUM FABRICATION SUPERVISOR Every morning while on IV heparin. Necessary every morning while on IV heparin. Authorizing ProviderResult TypeResult StatusPatel Hdez MDHEMATOLOGY Final ResultPerforming OrganizationAddressCity/State/ZIP CodePhone Number [facility] [address] [place] [address], * SCAN-CARDIAC STRIP (09/15/2025 10:01 PM ALUMINUM FABRICATION SUPERVISOR) Narrative Authorizing ProviderResult TypeResult StatusScannerOTHERFinal Result * SCAN-CARDIAC STRIP (09/15/2025 4:51 PM ALUMINUM FABRICATION SUPERVISOR) Narrative Authorizing ProviderResult TypeResult StatusScannerOTHERFinal Result * SCAN-CARDIAC STRIP (09/15/2025 9:38 AM ALUMINUM FABRICATION SUPERVISOR) Narrative Authorizing ProviderResult TypeResult StatusScannerOTHERFinal Result * (ABNORMAL) Creatinine (09/15/2025 6:19 AM ALUMINUM FABRICATION SUPERVISOR) Only the most recent of3 resultswithin the time period is included. ComponentValueRef RangeTest MethodAnalysis TimePerformed AtPathologist Signature eGFR>90>90 mL/min/1.80o88109/15/2025 6:54 AM [facility] LABORATORYComment:As of 12/22/2021, eGFR is calculated by the CKD-EPI creatinine equation without race adjustment. ??eGFR can be influenced by muscle mass, exercise, and diet. ??The reported eGFR is an estimation onlyand is only applicable if the renal function is stable.CREATININE0.41(L)0.50 - 0.90 mg/dL 09/15/2025 6:54 AM [facility] LABORATORYSpecimen (Source)Anatomical Location / LateralityCollection Method / VolumeCollection TimeReceived TimeBloodBLOOD SPECIMEN / UnknownVenipuncture / Banwbug0409/15/2025 6:19 AM CST09/15/2025 6:31 AM ALUMINUM FABRICATION SUPERVISOR Narrative Authorizing ProviderResult TypeResult StatusPatel James Hdez ALECHEMISTRYFinal ResultPerforming OrganizationAddressCity/State/ZIP CodePhone Number [facility] [address] [address], [place] * SCAN-CARDIAC STRIP (09/15/2025 12:49 AM ALUMINUM FABRICATION SUPERVISOR) Narrative Authorizing ProviderResult TypeResult StatusScannerOTHERFinal Result * SCAN-CARDIAC STRIP (09/14/2025 3:29 PM ALUMINUM FABRICATION SUPERVISOR) Narrative Authorizing ProviderResult TypeResult StatusScannerOTHERFinal Result * SCAN-CARDIAC STRIP (09/14/2025 7:19 AM ALUMINUM FABRICATION SUPERVISOR) Narrative Authorizing ProviderResult TypeResult StatusScannerOTHERFinal Result * SCAN-CARDIAC STRIP (09/13/2025 10:12 PM ALUMINUM FABRICATION SUPERVISOR) Narrative Authorizing ProviderResult TypeResult StatusScannerOTHERFinal Result * (ABNORMAL) ACTIVATED CLOTTING TIME [id number] ACT (09/13/2025 6:18 PM ALUMINUM FABRICATION SUPERVISOR) ComponentValueRef RangeTest MethodAnalysis TimePerformed AtPathologist SignatureACTIVATED CLOTTING TIME, GHOX472(H)74 - 125 sec09/18/2025 4:25 PM ALUMINUM FABRICATION SUPERVISOR [facility] LABORATORYSpecimen (Source)Anatomical Location / LateralityCollection Method / VolumeCollection TimeReceived Time BloodBLOOD SPECIMEN / Muznkyv1209/13/2025 6:18 PM CST09/18/2025 4:25 PM ALUMINUM FABRICATION SUPERVISOR Narrative Authorizing ProviderResult TypeResult StatusJose Corbin MDHEMATOLOGYFinal ResultPerforming OrganizationAddressCity/State/ZIP CodePhone Number [facility] [address] [place] [address], [place] * CVL CORONARY ANGIOGRAM POSS PCI (09/13/2025 6:12 PM ALUMINUM FABRICATION SUPERVISOR)Anatomical Region LateralityModalityOtherSpecimen (Source)Anatomical Location / Laterality Collection Method / VolumeCollection TimeReceived Time09/13/2025 6:12 PM ALUMINUM FABRICATION SUPERVISOR Narrative Transcriptions Bladimir Muniz MD - 09/13/2025 6:44 PM CST [facility] Cardiac Catheterization Report Name: MARILU SNIDER Event Date: 09/13/2025 18:12 Excellian ID #: [id number] MAGALI #: [id number] Patient Class: Inpatient Diagnostic Physician: BLADIMIR MUNIZ [facility] Referring Physician: Primary Care Physician: PCPRISHI Date: 1970 Gender: Female Age: 54 Summary/Conclusions PRESENTATION / INDICATIONS * NonSTEMI * Bicuspid aortic valve disease VASCULAR ACCESS * Using ultrasound guidance and a percutaneous technique, the right radialartery was accessed. Ultrasound was used to confirm vessel patency,localizing needle into the lumen of the vessel. An image was saved for themedical record. DIAGNOSTIC - CORONARY * Right dominant coronary artery system DIAGNOSTIC SUMMARY ? The LMCA is free of significant disease. ? 70% Diffusely diseased stenosis in the Mid LAD - suspect SCAD mid todistal vessel ? 90% multiple discrete stenosis in the 1st Marginal - suspect SACD ? The RCA is dominant. ? 60% Diffusely diseased stenosis in the MID RCA - also suspicion for SCADbut less than LAD and OM LEFT VENTRICULAR FUNCTION ? LV Pressure = /26 RECOMMENDATIONS & PLAN * Medical Rx due to SCAD * Medical Rx - Aspirin: 81 mg daily * Plavix for 1 year * SCAD clinic referral Consent & Connell Protocol The risks, benefits, and alternatives of the procedure were discussed withthe patient and written informed consent was obtained. Connell protocol was followed. TIME OUT conducted just prior tostarting procedure confirmed patient identity, site/side, procedure,patient position, and availability of correct equipment and implants (ifapplicable). Staff Name Title BLADIMIR MUNIZ Diagnostic Poker In Jayna Sherwood RN Nurse Maisha Samuels CVT Monitor Colleen Mora CVT Scrub Procedures ? Ultrasound Guided Vascular Access ? Coronary Angiogram Diagnostic Findings * Left Main Coronary Artery ? The LMCA is free of significant disease. * Left Anterior Descending ? 70% diffusely diseased stenosis in the Mid LAD. * Circumflex ? 90% multiple discrete stenosis in the 1st Marginal. The distal vesselhas endolumnial wall irregularities. * Right Coronary Artery ? The RCA is dominant. ? 60% diffusely diseased stenosis in the Proximal RCA. Lesion Information Lesion # Vessel Segment Lesion Length Lesion Details 1st Marginal Mid LAD Proximal RCA Hemodynamics State: Baseline Pressures (mmHg) Site Systolic Diastolic End Diastolic A Wave V Wave Mean AO 103 57 80 LV LV 100 22 26 AO 93 60 77 Procedure Details Estimated Blood Loss: < 30 ml Specimen Collected: None Level of Sedation Achieved: Moderate Procedure Start: 18:12 Procedure End: 18:26 Procedure Time: 14 min Fluoroscopy Time: 1.5 min Cumulative Air Kerma: 174 mGy DAP: 674 uGy/M2 Contrast: Omnipaque (low-osmolar), 25 ml Physiologic Data Weight: 63.5 kg Vascular Access Time Access Sheath Size 18:13 Right Radial Artery, sheath inserted Medications Ordered and Administered Start Time Stop Time Medication Dose Units Route Ordered By Given By 18:06 Fentanyl 50 mcg IV Bladimir Muniz Lauren RN 18:06 Versed 1 mg IV Bladimir Muniz Lauren RN 18:12 1% Lidocaine 0.5 ml Subcut Bladimir Muniz Mario 18:15 Nitroglycerin 100 mcg IA Bladimir Muniz Mario I personally monitored the patient?s conscious sedation during theprocedure. Conscious sedation starts with the first sedation medication dose ofFentanyl or Versed and ends when the procedure is completed, the patientis stable for recovery status, and the physician or other qualified healthcare professional providing the sedation ends personal hbrahjqaettfyn-jg-eryz time with the patient. The medications listed above were verbally ordered by me and read back tome as documented above. Refer to the procedure log report for additional case details. electronically signed on 09/13/2025 6:44:56 PM with status of Final Bladimir Muniz MD [facility] [address] [place] [address] (p) (f) Authorizing ProviderResult TypeResult StatusProvider ReferringCV IMAGINGEdited Result - Final * EXTRA TUBE LAVENDER (09/13/2025 5:03 PM ALUMINUM FABRICATION SUPERVISOR)Specimen (Source)Anatomical Location / LateralityCollection Method / VolumeCollection TimeReceived Time BloodBLOOD SPECIMEN / UnknownNon-Lab Venipuncture / Ukblipn2709/13/2025 5:03 PM CST09/13/2025 5:04 PM ALUMINUM FABRICATION SUPERVISOR Narrative Authorizing ProviderResult TypeResult StatusCrzana Corbin MDLABORATORYFinal ResultPerforming OrganizationAddressty/State/ZIP CodePhone Number [facility] [address] [place] [address], * (ABNORMAL) APTT (09/13/2025 4:55 PM ALUMINUM FABRICATION SUPERVISOR) Only the most recent of4 resultswithin the time period is included. ComponentValueRef RangeTest MethodAnalysis TimePerformed AtPathologist Signature APTT39(H)25 - 36 sec09/13/2025 5:31 PM [facility]ST[facility] LABORATORYSpecimen (Source)Anatomical Location / LateralityCollection Method / VolumeCollection TimeReceived TimeBloodBLOOD SPECIMEN / UnknownVenipuncture / Bvgmqlv6909/13/2025 4:55 PM CST09/13/2025 5:02 PM ALUMINUM FABRICATION SUPERVISOR Narrative [facility] - 09/13/2025 5:31 PM ALUMINUM FABRICATION SUPERVISOR Therapeutic Range: 59-89 seconds Authorizing ProviderResult TypeResult StatusCrzana Corbin MDHEMATOLOGYFinal ResultPerforming OrganizationAddressty/State/ZIP CodePhone Number [facility] [address] [place] [address], * LIPOPROTEIN A (09/13/2025 9:06 AM ALUMINUM FABRICATION SUPERVISOR)ComponentValueRef RangeTest Method Analysis TimePerformed AtPathologist SignatureLIPOPROTEIN (A)35.8<75.0 nmol/L 09/16/2025 5:07 AM CSTLABCORP [facility] Comment: Note: ??Values greater than or equal to 75.0 nmol/L may ? indicate an independent risk factor for CHD, ? but must be evaluated with caution when applied ? to non- populations due to the ? influence of genetic factors on Lp(a) across ? ethnicities. Specimen (Source)Anatomical Location / LateralityCollection Method / Volume Collection TimeReceived TimeBloodBLOOD SPECIMEN / UnknownButterfly / Unknown 09/13/2025 9:06 AM CST09/13/2025 9:48 AM ALUMINUM FABRICATION SUPERVISOR Narrative [facility] ([facility]) - 09/16/2025 5:07 AM ALUMINUM FABRICATION SUPERVISOR Test(s) 949741-Rpjgevpvjps (a) was developed and its performance characteristics determined by [facility]. It has not been cleared or approved by the Food and Drug Administration. Performed at: ??[address] - [address] ??[id number] Surgical Orderly: Mariam Alanis MD, Phone: ??[phone] Authorizing ProviderResult TypeResult StatusBeto Cooper NPSEND OUTSFinal ResultPerforming OrganizationAddressCity/State/ZIP CodePhone Number [facility] ([facility]) [address] [place] [address], * (ABNORMAL) Hemoglobin A1C Screening - in AM (09/13/2025 9:06 AM ALUMINUM FABRICATION SUPERVISOR)Component ValueRef RangeTest MethodAnalysis TimePerformed AtPathologist Signature HEMOGLOBIN A1C BJUTHPTIG90.2(H)<=6.4 %09/13/2025 3:28 PM CSTCON[facility]ITAL[facility]TRAL LABORATORYSpecimen (Source)Anatomical Location / Laterality Collection Method / VolumeCollection TimeReceived TimeBloodBLOOD SPECIMEN / UnknownButterfly / Oqwsbkp4209/13/2025 9:06 AM CST09/13/2025 9:48 AM ALUMINUM FABRICATION SUPERVISOR Narrative [facility] - 09/13/2025 3:28 PM ALUMINUM FABRICATION SUPERVISOR (<5.7%) Normal ? (5.7% to 6.4%) ? Indicates prediabetes (>=6.5%) Confirms diabetes Falsely low levels may be seen with: Recent Transfusion, Recent Significant Blood Loss, Hemolytic Diseases, or Falsely elevated levels may be seen with: Untreated Anemias, Splenectomy Authorizing ProviderResult TypeResult StatusJose Corbin MDCHEMISTRYFinal ResultPerforming OrganizationAddressCity/State/ZIP CodePhone Number [facility] [address] * (ABNORMAL) Lipid Panel - In AM (09/13/2025 9:06 AM ALUMINUM FABRICATION SUPERVISOR)ComponentValueRef Range Test MethodAnalysis TimePerformed AtPathologist SignatureCHOLESTEROL,HOKOZ141 (H)100 - 199 mg/dL09/13/2025 10:19 AM [facility] LABORATORYComment: Cholesterol, Total Reference Ranges Desirable <200 mg/dL Borderline 200-239 mg/dL High >=240 mg/dL RQLLFAHJQHEVA195(H)<150 mg/dL09/13/2025 10:19 AM [facility]TRAL LABORATORYHDL ENARRFFUKAR20(L)>40 mg/dL09/13/2025 10:19 AM [facility] LABORATORYNON-HDL WTGDGTNCZJD477(H)<145 mg/dl 09/13/2025 10:19 AM [facility] LABORATORYCHOL/HDL RATIO 5.59(H)<4.50111/14/2024 10:19 AM [facility] LDL GPXLSQDKAJR018(H)<=130 mg/dL09/13/2025 10:19 AM [facility] C[facility]TRAL LABORATORYVLDL BICOTRKHEAT57(H)<=30 mg/dL09/13/2025 10:19 AM [facility] LABORATORYPROVIDER ORDERED DNGNNGDYKBCQ46/05/2025 10:19 AM [facility] LABORATORYSpecimen (Source) Anatomical Location / LateralityCollection Method / VolumeCollection Time Received TimeBloodBLOOD SPECIMEN / UnknownButterfly / Vbrukze1109/13/2025 9:06 AM CST09/13/2025 9:48 AM ALUMINUM FABRICATION SUPERVISOR Narrative Authorizing ProviderResult TypeResult StatusCraig Nashua Bowron MDCHEMISTRYFinal ResultPerforming OrganizationAddressCity/State/ZIP CodePhone Number [facility] [address] [place] [address], * SCAN-CARDIAC STRIP (09/13/2025 8:58 AM ALUMINUM FABRICATION SUPERVISOR) Narrative Authorizing ProviderResult TypeResult StatusScannerOTHERFinal Result * SCAN-CARDIAC STRIP (09/13/2025 8:58 AM ALUMINUM FABRICATION SUPERVISOR) Narrative Authorizing ProviderResult TypeResult StatusScannerOTHERFinal Result * ECHO TTE COMPLETE WO CONTRAST (09/13/2025 8:33 AM ALUMINUM FABRICATION SUPERVISOR)ComponentValueRef Range Test MethodAnalysis TimePerformed AtPathologist SignatureAORTIC VALVE MEAN PG3 mmHgEJECTION ATRVIXBG89%PEAK TR VELOCITY1.9m/sLVEDD4.8cmEJECTION UTDJDCOS06 - 60%Anatomical RegionLateralityModalityUltrasoundSpecimen (Source)Anatomical Location / LateralityCollection Method / VolumeCollection TimeReceived Time 09/13/2025 7:57 AM ALUMINUM FABRICATION SUPERVISOR Narrative 09/13/2025 9:30 AM ALUMINUM FABRICATION SUPERVISOR ECHOCARDIOGRAM MARILU SNIDER ?Accession#: ?? [id number] : ?1970 54 years Study Date: ?? 09/13/2025 7:57:43 AM Gender: F ? BP: ? 121/71 mmHg Height: 162.56 cm ? BSA: ?1.69 m? Weight: 63.99 kg ?Tech: ? CH ?Referring MD: PATEL HDEZ Site: ? [facility] Reading Location: [facility] Patient Location: Inpatient. Procedure: Color Doppler, Spectral Doppler and 2D. Indication for study: Acute [place] Cardiac Rhythm: Regular.Study quality: Fair. Final Impressions: 1. Normal LV size, mildly increased wall thickness, normal global systolic function with an estimated EF of 55 - 60%. 2. Mid posterior segment and mid lateral segment are abnormal. 3. Right ventricular cavity size is normal, global systolic RV function is normal. 4. The aortic valve is probably bicuspid and partial fusion of the left and non- coronary cusp, no stenosis and no regurgitation. Best seen on image 20. 5. Dilated ascending aorta, diameter of 3.7 cm (upper limit of normal for age, sex, and BSA is 3.6 cm), Height Index 2.28. 6. Dilated sinus of Valsalva, diameter of 3.7 cm (upper limit of normal for age, sex, and BSA is 3.6 cm), Height Index 2.28 cm/m. Chamber Sizes and Function Normal left ventricular size, mildly increased wall thickness, normal global systolic function withan estimated EF of 55 - 60%. Left atrial size is normal. Right ventricular cavity size is normal, global systolic RV function is normal. The right atrium is normal. Right atrial volume index is 14 ml/m?. The pulmonary artery is not well visualized. The sinus of Valsalva is dilated. The ascendingaorta is dilated. The mid posterior segment and mid lateral segment are akinetic. Valves, RV Pressures and Diastolic Function The aortic valve is probably bicuspid and partial fusion of the left and non- coronary cusp, no stenosis and no regurgitation. The mitral valve is normal in structure, trace mitral regurgitation. Spectral Doppler shows Grade 1 pattern of LV diastolic filling. The tricuspid valve is normal in structure, trace tricuspid regurgitation. The tricuspid regurgitant velocity is 1.9 m/s, the estimated right ventricular systolic pressure is 14 mmHg plus right atrial pressure. The pulmonic valve is not well visualized. No pulmonary regurgitation. Masses, Effusion, Shunts There is no pericardial effusion. The inferior vena cava is normal sized, respiratory size variation greater than 50%. No left to right shunting was detected by limited color flow Doppler interrogation of the interatrial septum. MEASUREMENTS AND CALCULATIONS 2-D Measurements and LV Function: LVID (d) ? 4.8 cm LV FS% (2D) ?? 48 % LVID (s) ? 2.5 cm LVOT diameter 2.2 cm IVS (d) ?1.3 cm HR ?85 bpm LVPW (d) ? 0.9 cm LA Vol index ??21 ml/m2 Ao Sinus ? 3.7 cm RA Vol index ??14 ml/m2 Ao Sinus ULN 3.6 cm RV Basal Diam 2.9 cm Asc Ao ? 3.7 cm Asc Ao ULN ?? 3.6 cm Diastology: Mitral ?Tissue Doppler E Peak 0.7 m/s ??e', Septum ? 0.07 m/s A Peak 0.7 m/s ??e', Lateral ?0.07 m/s E/A ?0.9 ?E/e' Average ?? 9.68 DT ? 156 msec Aortic Valve: Vmax ? 1.1 m/s ??CROW (V) ?? 2.89 cm? VTI ?0.23 m ?? CROW (I) ?? 2.82 cm? LVOT V max 0.8 m/s ??Max PG ?5 mmHg LVOT VTI ?? 0.17 m ?? Mean PG ?? 3 mmHg SV ? 66 ml ?Dim Index 0.74 SV index ?? 39 ml/m? CO ?5.6 l/min ?CI ?3.3 l/min/m? Mitral Valve: MVA ?4.9 cm? MV P 1/2 45 msec Tricuspid Valve and estimated PA pressures: TR Vmax 1.9 m/s TAPSE 1.4 cm TR maxG 14 mmHg . This study was interpreted by an [facility] accredited facility. ??Final ?? Procedure Note Manjinder Anton MD - 09/13/2025 ECHOCARDIOGRAM MARILU SNIDER : 1970 54 years Study Date: 09/13/2025 7:57:43 AM Gender: F BP: 121/71 mmHg Height: 162.56 cm BSA: 1.69 m? Weight: 63.99 kg Tech: Referring MD: PATEL HDEZ Site: [facility] Reading Location: [facility] Patient Location: Inpatient. Procedure: Color Doppler, Spectral Doppler and 2D. Indication for study: Acute [place] Cardiac Rhythm: Regular.Study quality: Fair. Final Impressions: 1. Normal LV size, mildly increased wall thickness, normal globalsystolic function with an estimated EF of 55 - 60%. 2. Mid posterior segment and mid lateral segment are abnormal. 3. Right ventricular cavity size is normal, global systolic RV functionis normal. 4. The aortic valve is probably bicuspid and partial fusion of the leftand non- coronary cusp, no stenosis and no regurgitation. Best seen onimage 20. 5. Dilated ascending aorta, diameter of 3.7 cm (upper limit of normal forage, sex, and BSA is 3.6 cm), Height Index 2.28. 6. Dilated sinus of Valsalva, diameter of 3.7 cm (upper limit of normalfor age, sex, and BSA is 3.6 cm), Height Index 2.28 cm/m. Chamber Sizes and Function Normal left ventricular size, mildly increased wall thickness, normalglobal systolic function with an estimated EF of 55 - 60%. Left atrialsize is normal. Right ventricular cavity size is normal, global systolicRV function is normal. The right atrium is normal. Right atrial volumeindex is 14 ml/m?. The pulmonary artery is not well visualized. The sinusof Valsalva is dilated. The ascending aorta is dilated. The mid posteriorsegment and mid lateral segment are akinetic. Valves, RV Pressures and Diastolic Function The aortic valve is probably bicuspid and partial fusion of the left andnon- coronary cusp, no stenosis and no regurgitation. The mitral valve isnormal in structure, trace mitral regurgitation. Spectral Doppler showsGrade 1 pattern of LV diastolic filling. The tricuspid valve is normal instructure, trace tricuspid regurgitation. The tricuspid regurgitantvelocity is 1.9 m/s, the estimated right ventricular systolic pressure is14 mmHg plus right atrial pressure. The pulmonic valve is not wellvisualized. No pulmonary regurgitation. Masses, Effusion, Shunts There is no pericardial effusion. The inferior vena cava is normal sized, respiratory size variation greater than 50%. No left to right shunting was detected by limited color flow Doppler interrogation of the interatrialseptum. MEASUREMENTS AND CALCULATIONS 2-D Measurements and LV Function: LVID (d) 4.8 cm LV FS% (2D) 48 % LVID (s) 2.5 cm LVOT diameter 2.2 cm IVS (d) 1.3 cm HR 85 bpm LVPW (d) 0.9 cm LA Vol index 21 ml/m2 Ao Sinus 3.7 cm RA Vol index 14 ml/m2 Ao Sinus ULN 3.6 cm RV Basal Diam 2.9 cm Asc Ao 3.7 cm Asc Ao ULN 3.6 cm Diastology: Mitral Tissue Doppler E Peak 0.7 m/s e', Septum 0.07 m/s A Peak 0.7 m/s e', Lateral 0.07 m/s E/A 0.9 E/e' Average 9.68 DT 156 msec Aortic Valve: Vmax 1.1 m/s CROW (V) 2.89 cm? VTI 0.23 m CROW (I) 2.82 cm? LVOT V max 0.8 m/s Max PG 5 mmHg LVOT VTI 0.17 m Mean PG 3 mmHg SV 66 ml Dim Index 0.74 SV index 39 ml/m? CO 5.6 l/min CI 3.3 l/min/m? Mitral Valve: MVA 4.9 cm? MV P 1/2 45 msec Tricuspid Valve and estimated PA pressures: TR Vmax 1.9 m/s TAPSE 1.4 cm TR maxG 14 mmHg . This study was interpreted by an [facility] accredited facility. Final Authorizing ProviderResult TypeResult StatusPatel FARLEY ORDFinal Result * SCAN-CARDIAC STRIP (09/13/2025 3:49 AM ALUMINUM FABRICATION SUPERVISOR) Narrative Authorizing ProviderResult TypeResult StatusScannerOTHERFinal Result * SCAN-CARDIAC STRIP (09/12/2025 10:21 PM ALUMINUM FABRICATION SUPERVISOR) Narrative Authorizing ProviderResult TypeResult StatusScannerOTHERFinal Result * (ABNORMAL) CBC with Platelets no Differential (09/12/2025 9:31 PM ALUMINUM FABRICATION SUPERVISOR) ComponentValueRef RangeTest MethodAnalysis TimePerformed AtPathologist SignatureWHITE BLOOD COUNT13.0(H)4.5 - 11.0 thou/cu mm09/12/2025 9:46 PM [facility] LABORATORYRED BLOOD COUNT4.534.00 - 5.20 mil/cu mm09/12/2025 9:46 PM [facility] ZDJAKAKNWX28.812.0 - 16.0 g/dL09/12/2025 9:[address] [facility] SDAACHYLBTHFTJAUCTVC43.933.0 - 51.0 %09/12/2025 9:46 PM [facility] PZYOTSWVEMATC2535 - 100 fL09/12/2025 9:46 PM [facility] XURRDUNVTYXJN53.326.0 - 34.0 pg09/12/2025 9:46 PM [facility] VZIJIKOHKCKWKR01.832.0 - 36.0 g/dL 09/12/2025 9:46 PM [facility] CGDPVCHPNSDOA14.611.5 - 15.5 %09/12/2025 9:46 PM [facility] PLATELET TOORJ313850 - 440 thou/cu mm09/12/2025 9:46 PM [facility] LABORATORYMPV9.26.5 - 11.0 fL09/12/2025 9:46 PM [facility] LABORATORYNRBC0.0%09/12/2025 9:46 PM [facility] LABORATORYABS NRBC0.0thou /cu mm09/12/2025 9:46 PM [facility] LABORATORYSpecimen (Source)Anatomical Location / LateralityCollection Method / VolumeCollection TimeReceived Time BloodBLOOD SPECIMEN / UnknownButterfly / Egsjrxr5509/12/2025 9:31 PM ALUMINUM FABRICATION SUPERVISOR 09/12/2025 9:40 PM ALUMINUM FABRICATION SUPERVISOR Narrative [facility] - 09/12/2025 9:46 PM ALUMINUM FABRICATION SUPERVISOR Obtain before initiating IV heparin therapy if not done within previous 24 hours. Obtain before initiating IV heparin therapy if not done within previous 24 hours. Authorizing ProviderResult TypeResult StatusAndjerrell Hdez MDHEMATOLOGY Final ResultPerforming OrganizationAddressCity/State/ZIP CodePhone Number [facility] [address] [address], * PROTIME-INR (09/12/2025 9:31 PM ALUMINUM FABRICATION SUPERVISOR)ComponentValueRef RangeTest MethodAnalysis TimePerformed AtPathologist SignatureINR1.0<1.312 9:53 PM CSTCON[facility] GWOCXFQGBRTGSABGL15.010.6 - 12.4 sec09/12/2025 9:53 PM CSTPAR[facility]WO[facility] LABORATORYSpecimen (Source)Anatomical Location / LateralityCollection Method / VolumeCollection TimeReceived Time BloodBLOOD SPECIMEN / UnknownButterfly / Btctyvb4509/12/2025 9:31 PM ALUMINUM FABRICATION SUPERVISOR 09/12/2025 9:40 PM ALUMINUM FABRICATION SUPERVISOR Narrative [facility] - 09/12/2025 9:53 PM ALUMINUM FABRICATION SUPERVISOR Therapeutic Range 2.0-3.0 for most anticoagulated patients 2.5-3.5 or 4.0 for high risk patients The INR is only used for patients on stable oral anticoagulant therapy. It makes no significant contribution to the diagnosis or treatment of patients whose Protime is prolonged for other reasons. INR results are increased when heparin levels exceed 1.0 U/mL, which corresponds to an aPTT >125seconds if the patient is on UFH. Authorizing ProviderResult TypeResult StatusAndjerrell Hdez MDHEMATOLOGY Final ResultPerforming OrganizationAddressCity/State/ZIP CodePhone Number [facility] [address] [address], * SCAN-MAMMOGRAPHY REPORT (07/10/2007 12:00 AM CDT)Anatomical RegionLaterality ModalityOther Narrative Authorizing ProviderResult TypeResult StatusScannerOTHERFinal Result from Last 3 Months or Most Recently Relevant to Health Maintenance Insurance * Guarantor: Marilu Snider AAccount TypeRelation to PatientDate of PhoneBilling AddressPersonal/JsbsfhLgce47/[birth year][address] [place] [address] Advance Directives * Full Code (Latest Code Status on File) Date ActivatedDate XldjrhswgwpGvvjpuxh65/4/2025 8:58 PM09/19/2025 3:34 PM QuestionAnswerCommentsCode Status Discussion:* Reviewed Preferences * Full Code Date ActivatedDate BxsphywqsffKcdzvugv09/4/2025 8:54 PM09/12/2025 8:58 PMQuestion AnswerCommentsCode Status Discussion:* Reviewed Preferences Care Teams Team MemberRelationshipSpecialtyStart DateEnd Date Zeynep Dominguez MD [address] [place] [address] PCP - GeneralFamily Qiqpxpog68/15/25
--- OUTSIDE RECORDS SUMMARY | 2025-09-27 18:13 | XMS_ITS | Clinical Summary ---
Author Organization [facility] Address [address] [place] [address] Care Team Providers Care Sales And Retail Management Recruiter Name Role Phone Elsewhere, Pcp Primary Care Provider Unavailabl e Source Comments Patient records contain information from all sites at [facility]. For routine questions regarding patient records, call [phone] during business hours, M-F 8:00 AM - 5:00 PM Central Time. Record requests for emergency care only can be directed to [phone] at any time.[facility] Allergies Active AllergyReactionsCriticalityNoted YlbdMfzxiwfbSvpkzjnzsfeVdjg75/15/2007 Sulfa (Sulfonamide Antibiotics)ShljZvfn80/12/2023 Medications MedicationSigDispense QuantityRefillsLast FilledStart DateEnd DateStatus metFORMIN (GLUCOPHAGE) 500 mg tablet Take 2 tablets by mouth 2 (two) times a day with meals.01/30/2016Active LORazepam (ATIVAN) 0.5 mg tablet Take 1 tablet by mouth daily as needed.12/30/2022ctive ciprofloxacin (CIPRO) 500 mg tablet Take 500 mg by mouth 2 (two) times a day before morning and evening meals. Not takingActive semaglutide (Ozempic) 1 mg/dose (4 mg/3 mL) injection Inject 0.25 mg under the skin every 7 (seven) days.Active Active Problems No known active problems Immunizations ImmunizationAdministration DatesNext DueInfluenza, Seasonal, Injectable 08/12/2007 Social History Tobacco UseTypesPacks/DayYears UsedDateSmoking Tobacco: NeverAlcohol UseStandard Drinks/WeekCommentsNot Currently0 (1 standard drink = 0.6 oz pure alcohol) occasionallyCommentsNoSex and Gender InformationValueDate RecordedSex Assigned at BirthNot on fileLegal XjfYdhcmq54/03/2017 10:34 AM CSTGender IdentityNot on fileSexual OrientationNot on file Last Filed Vital Signs Vital SignReadingTime TakenCommentsBlood Jvtovzxt728/7126708/12/2024 10:30 PM EDUCATION REVIEWER Iygnh8865 9:30 PM FHNCgtxajziuij56.8 ??C (98.2 ??F)08/12/2024 7:00 PM CSTRespiratory Ljjd177512/22/2023 6:56 PM CDTOxygen Srzzlffjcf40%08/12/2024 9:30 PM CSTInhaled Oxygen Concentration--Hkweka79 kg (134 lb 7.7 oz)08/12/2024 6:48 PM BWHQylauh151 cm (5' 2.99)01/31/2016 6:13 AM CDTBody Mass Index23.83 01/31/2016 6:13 AM CDT Plan of Treatment Health MaintenanceDue DateLast DoneCommentsCT Wetvpdxxpkyf35/07/1973Cologuard 1972 8242Gvolqgakuhd34/07/1973Colorectal Cancer Jhoywlpqz26/07/1973FIT 1972HIV Cvvlesonc61/07/1973Hepatitis C Hopslxodn65/07/1973Hepatitis B Vaccines (1 of 3 - 19+ 3-dose series)1991Zoster Vaccines (1 of 2) 3DTaP,Tdap,and Td Vaccines (2 - Td or Tdap)/ Depression Screening (Annual PHQ-2)5COVID-19 Vaccine (3 - 2024- season)502/, 11/04/2020Influenza Vaccine (#1)2025 10/25/2022, 07/02/2021, 10/29/2019, Additional history existsFasting Glucose for Diabetes Vzxxfmugg04, 09/12/2025, 08/12/2024, Additional history existsLipid (Cholesterol) Vfmlipmdg73Pneumococcal vaccine (50+ years)Xffjmnuxv44/16/2023, 07/26/2013IPV VaccinesAged OutNo longer eligible based on patient's age to complete this topic Medical Devices ImplantedTypeAreaManufacturerDevice IdentifierShelf Expiration DateModel / Serial / LotMentor Sally Contour Profile 550cc - Dey [id number] Implanted:Qty: 1 on 08/08/2007Tissue ExpanderOther/Legacy - See Implant DescriptionMentor Medical SystemsDescription:Device Laser Engineer - [place]. Body Location - Other. Left. Device Status Text - [id number].ExplantedType AreaManufacturerDevice IdentifierShelf Expiration DateModel / Serial / LotMentor Sally Contour Profile 550cc - Dey [id number] Explanted:Qty: 1 on 01/29/2016Tissue ExpanderOther/Legacy - See Implant DescriptionMentor Medical SystemsDescription:Device Laser Engineer - [place]. Body Location - Other. Right. Device Status Text - [id number]. Procedures Procedure NamePriorityDate/TimeAssociated DiagnosisCommentsGLUCOSE POCT, BSTAT 08/12/2024 7:24 PM EDUCATION REVIEWER from Last 3 Months or Most Recently Relevant to Health Maintenance Insurance Care Teams Team MemberRelationshipSpecialtyStart DateEnd Date Elsewhere, Pcp PCP - GeneralInternal Jrfdjtuk39/3/24
[2025-09-27 18:14] VITALS: BP 168/92; PULSE 80; RESP 16; TEMP 37; O2SAT 98
--- NOTE | 2025-09-27 20:05 | ED.GENADULT ---
HPI - General Adult General Chief complaint: Dental/Oral/Mouth Injury/Pain Stated complaint: jaw pain on right side Time Seen by Provider: 09/27/25 18:25 Source: patient Mode of arrival: ambulatory Limitations: no limitations History of Present Illness HPI narrative: 54-year-old female presents the emergency department with dental pain of the right lower jaw, premolar area. Symptomatic for the past 24 hours. Has a history of severe dental caries in this area. She is actually scheduled to have surgery to correct this on Tuesday which is 3 days from now. She did see her dentist today to evaluate the pain. She was given a dose of ceftriaxone over the align a clinic due to concern for infection. She actually just had a heart attack with S CAD last week, treated appropriately and managed, is on appropriate medications. She is not having any chest pain or complications from this but was told not to take NSAIDs. She says that the pain is unbearable. She is not having any difficulty swallowing, no swelling of the tongue, or neck. She has no headache or fever. She has been using the Tylenol that was recommended but finds the pain to be unbearable. The dentist was not willing to do a nerve block because of her recent cardiac procedure. They do also has my opinion about proceeding with the dental procedure on Tuesday and continuing to take her medications. They do show me correspondence from her custom home installer recommending that she have the procedure performed but that she stay on her medications they just needed clarification of his Wording. She does not have a history of addiction or narcotic issues. She has severe dental caries because of complications from prior chemotherapy for breast cancer. Reports that her other medications and management have been stable. No other acute concerns today. Past medical history reviewed, recent cardiac status reviewed. ROS notable for the dental concerns only, otherwise denies times 12 systems today. Related Data Home Medications ?Medication ?Instructions ?Recorded ?Confirmed aspirin 81 mg chewable tablet 1 tab PO DAILY 09/27/25 09/27/25 insulin glargine 100 unit/mL (3 29 unit subcut DAILY 09/27/25 09/27/25 mL) subcutaneous pen (Basaglar KwikPen U-100 Insulin) isosorbide mononitrate 60 mg 60 mg PO DAILY 09/27/25 09/27/25 tablet,extended release 24 hr losartan 25 mg tablet 25 mg PO BID 09/27/25 09/27/25 metoprolol succinate 50 mg 75 mg PO BID 09/27/25 09/27/25 tablet,extended release 24 hr rosuvastatin 40 mg tablet 40 mg PO DAILY 09/27/25 09/27/25 Previous Rx's ?Medication ?Instructions ?Recorded blood-glucose sensor (Dexcom G6 #3 ea 08/09/24 Sensor device) blood-glucose transmitter (Dexcom #1 ea 08/09/24 G6 Transmitter device) blood-glucose,plaster whittler,cont #1 ea 08/09/24 (Dexcom G6 Inspector Filters) metformin 1,000 mg tablet 1,000 mg PO BIDWMEAL #180 tabs 08/19/25 Allergies Allergy/AdvReac Type Severity Reaction Status Date / Time Sulfa (Sulfonamide Allergy Verified 09/27/25 18:14 Antibiotics) [facility] Medical History History of cellulitis ?Z87.2 - Personal history of diseases of the skin and subcutaneous tissue (ICD-10) Surgical History History of bilateral mastectomy ?Z90.13 - Acquired absence of bilateral breasts and nipples (ICD-10) History of bilateral oophorectomy (07/26/13) ?Z90.722 - Acquired absence of ovaries, bilateral (ICD-10) Social History What is your current living situation?: I presently have a place to live Problems where you live: no known problems In the past 12 months, utilities in danger of being shut off: declined to answer In past 12 months, lack of transportation kept you from medical appts, meetings, work, or getting things needed for daily living: no In the past 12 mos, have been you worried that your food would run out before you had money to buy more?: never true In the past 12 mos, the food you bought just didn't last and you didn't have money to buy more?: declined to answer Smoking Status: Never smoker Do you use any of these nicotine containing products: None Second hand tobacco smoke exposure: No How often do you have a drink containing alcohol: never AUDIT-C Alcohol total score: 0 Non-prescribed substance use: denies use How often does anyone, including family, friends and others, physically hurt you: never How often does anyone, including family, friends and others, insult or talk down to you: rarely How often does anyone, including family, friends and others, threaten you with harm: never How often does anyone, including family, friends and others, scream or curse at you: never Health Related Social Needs: Other personal risk factors, not elsewhere classified (Z91.89) Exam Const: Vital Signs, click to edit/add: Vital Signs - 24 hr 09/27/25 18:14 Temperature 98.6 F Pulse Rate [Pulse Oximeter] 80 Respiratory Rate 16 Blood Pressure [Le ft Upper Arm] 168/92 H Pulse Oximetry 98 Oxygen Delivery Me thod Room Air Documenting provider has reviewed patient's vital signs: yes Common normals: no apparent distress General appearance: cooperative and well kempt HENMT: Common normals: normocephalic Head and scalp: normocephalic Other: No swelling to the outside of the jaw. The jaw does open and close normally. On the inside of the mouth there is swelling along the right lower premolar area and along the gum line. No obvious abscess no purulent drainage. No unusual odor. Tender to the touch. Opposite left side does show a couple of broken teeth and dental caries but the upper jaw does not show any redness or swelling. Posterior oropharynx appears normal. Eye: General eye: normal appearance of both eyes Neck & C-Spine: Common normals: full ROM and no lymphadenopathy General: normal visual inspection Resp: Common normals: normal respiratory effort Effort & inspection: able to speak in complete sentences Cardio: Common normals: regular rate, regular rhythm, S1 normal heart sound, S2 normal heart sound and no murmurs Rate: regular rate Rhythm: regular rhythm Heart sounds: S1 normal and S2 normal Psych: Common normals: cooperative and speech normal Appearance: well kempt Activity/motor behavior: appropriate eye contact Speech: normal speech Mood and affect: euthymic mood Attention/concentration: attention grossly intact Insight: insight good Judgement: judgment good Course Course ED Course: 54-year-old female with multiple dental caries from prior damage to teeth from cancer treatment. Presenting with inflammation and pain suggestive of infection. Has been started on appropriate injectable therapy and transitioning to orals tomorrow morning. I do agree that NSAIDs are a bit risky just 2 weeks from [place] with her current treatment plan. Counseled patient that in these rare circumstances I do actually recommend narcotics. She will be given 10 mg of oral oxycodone p.o. x1 since her pain is severe. Counseled her that thankfully most people do improved quite a bit in 24-48 hours on antibiotics, the inflammation does tend to get quite a bit better. She is given a supply of hydrocodone from instead meds and counseled that she will need to watch her total Tylenol intake as well. I think that her improvement from a nerve block would be really temporary and have recommended we just your away from this for today. Alarm symptoms like difficulty swallowing, swelling of the throat and airway, high fever would all be indications to come back to the ED sooner. Remember to picker/puller antibiotics in the morning and continue those as prescribed and I do recommend that she keep the procedure for Tuesday as is planned. I want her to continue all of her cardiac medications including her aspirin and not hold it prior to the procedure. I reviewed the correspondence through my chart with her and her daughter regarding the Cardiology recommendations and explain that this is just medical wording for go ahead with the procedure but take all of her medicines. Vital Signs Vital signs: Initial Vital Signs Temperature 98.6 F 09/27/25 18:14 Temperature Source Temporal Artery Scan 09/27/25 18:14 Pulse Rate 80 09/27/25 18:14 Respiratory Rate 16 09/27/25 18:14 Blood Pressure 168/92 H 09/27/25 18:14 Blood Pressure Mean 117 H 09/27/25 18:14 Blood Pressure Position Sitting 09/27/25 18:14 Pulse Oximetry 98 09/27/25 18:14 Oxygen Delivery Method Room Air 09/27/25 18:14 Vital Signs Temperature 98.6 F 09/27/25 18:14 Pulse Rate 80 09/27/25 18:14 Respiratory Rate 16 09/27/25 18:14 Blood Pressure 168/92 H 09/27/25 18:14 Pulse Oximetry 98 09/27/25 18:14 Oxygen Delivery Method Room Air 09/27/25 18:14 Temperature 98.6 F 09/27/25 18:14 Pulse Rate 80 09/27/25 18:14 Respiratory Rate 16 09/27/25 18:14 Blood Pressure 168/92 H 09/27/25 18:14 Pulse Oximetry 98 09/27/25 18:14 Oxygen Delivery Method Room Air 09/27/25 18:14 Medications Administered Medications: Discontinued Medications Generic Name Dose Route Start Last Admin Trade Name Raul PRN Reason Stop Dose Admin Oxycodone HCl 10 mg 09/27/25 18:56 09/27/25 19:06 Oxycodone 5 Mg Tablet PO 09/27/25 18:57 10 mg ONCE ONE Administration Medical Decision Making ECG Data Attestation: I personally reviewed and interpreted this ECG as follows: Prior ECG tracings: available for review Interpretation: Sinus rhythm with a rate of 77. No significant ST or T-wave abnormalities. Normal intervals and axis. Stable EKG. Discharge Plan Discharge Clinical Impression: Dental infection Patient Disposition: Home w/ Parent or Adult Condition: Stable Instructions: Toothache (ED) Additional Instructions: as we discussed, I am also concerned about infection and inflammation in your lower jaw area. I do agree with your plan to proceed with the extraction early next week. The injectable antibiotic that you were given is also an excellent choice. Please picker/puller the antibiotics from your pharmacy and start these tomorrow morning. you were given 2 oxycodone tablets here in the emergency room. This will likely cause fatigue but will not cause any problems with the heart. NSAIDs like Aleve and ibuprofen can cause dangerous interactions with the heart, especially since it is so soon since your heart event. Continue taking your medications for your heart as prescribed, including the aspirin, do not stop this prior to the dental procedure. I have provided you with hydrocodone which is a narcotic medicine to help with the pain. He may take 1 pill up to every 4 hours as needed for severe pain. I am hoping that the antibiotics will kick in tomorrow and that your pain will improve. You may also continue Tylenol but remember that your total maximum amount is 4000 mg per day and the hydrocodone does contain some acetaminophen as well. It is also okay to use fmss-usd-iklvtqt teething gels to help numb the area. You may also use gentle sleep aids like Benadryl, Unisom or melatonin to help you sleep as well. For most people, pain improves 24-48 hours after starting the antibiotics at least somewhat. Should come back to the ER if you have severe swelling of the face, high fever, Difficulty swallowing or other signs of complication. Activity Level: Activity as Tolerated Discharge Diet: Regular Prescriptions: No Action (DME) Dexcom G6 Inspector Filters Misc See Rx Instructions .Route Qty: 1 0RF Rx Instructions: As directed (DME) Dexcom G6 Sensor Device See Rx Instructions .Route Qty: 3 0RF Rx Instructions: As directed (DME) Dexcom G6 Transmitter Device See Rx Instructions .Route Qty: 1 0RF Rx Instructions: As directed metoprolol succinate 50 mg tablet extended release 24 hr 75 mg PO BID isosorbide mononitrate 60 mg tablet extended release 24 hr 60 mg PO DAILY losartan 25 mg tablet 25 mg PO BID Rx Instructions: 25MG PO in AM, 12.5MG PO in PM aspirin 81 mg tablet,chewable 1 tab PO DAILY rosuvastatin 40 mg tablet 40 mg PO DAILY insulin glargine [Basaglar KwikPen U-100 Insulin] 100 unit/mL (3 mL) insulin pen 29 unit subcut DAILY metformin 1,000 mg tablet 1,000 mg PO BIDWMEAL Qty: 180 0RF Follow Up/Referrals: Tg Powers MD [Primary Care Provider, Family Practice] Stand Alone Forms: [employer] Info Instructions
== END 2025-09-27 19:21 | disposition home or self-care (01) ==
PROVIDERS: Emergency Provider Family Medicine; PCP Family Medicine
DX: K04.7 Periapical abscess without sinus (principal)
CPT/HCPCS: 99283; A9270